=== PATIENT | male | born 1940 | race Caucasian/White ===

== ENCOUNTER 2019-12-21 12:24 | Outpatient (CLI) | payer MEDICARE, SELFPAY ==
--- NOTE | 2019-12-22 14:23 | WPDHOLTEREM ---
Holter/Event Monitor Holter/Event Monitor Date of procedure: 12/21/19 Procedure Type: 24 hour holter monitor Indications: Irregular heart beat Conclusion: 1. 24 hour holter monitor on 12/21/19. 2. Predominant rhythm is sinus rhythm. HR range 36-113 bpm; average HR 66 bpm. 3. No premature supraventricular complexes. No supraventricular tachycardia. 4. There are 8,756 premature ventricular complexes, 570 ventricular couplets, 5 ventricular triplets, 6,783 ventricular bigeminy and 1,098 ventricular trigeminy. One idioventricular rhythm at 83 bpm lasting 5 beats. No ventricular tachycardia. 5. No sinoatrial or atrioventricular blocks. The longest pause is 2.6 seconds at 2:57 am. 6. No symptoms available for correlation.
== END 2019-12-21 12:25 | disposition home or self-care (01) ==
LOC: CHSCARD 12:31
PROVIDERS: PCP Internal Medicine; Visit Provider Internal Medicine
DX: I49.9 Cardiac arrhythmia, unspecified (principal)
CPT/HCPCS: 93225; 93226

== ENCOUNTER 2019-12-25 13:27 | Outpatient (CLI) | payer MEDICARE, SELFPAY | END 2019-12-25 13:28 | disposition home or self-care (01) | PROVIDERS: PCP Internal Medicine; Visit Provider Internal Medicine | DX: I49.9 Cardiac arrhythmia, unspecified (principal); I10 Essential (primary) hypertension | CPT/HCPCS: 93306 ==

== ENCOUNTER 2022-09-29 09:54 | Outpatient (CLI) | payer MEDICARE, SELFPAY ==
--- NOTE | ~2022-09-29 | US_ITS ---
EXAMINATION: US retroperitoneal duplex ltd DATE: 09/29/2022 11:03 INDICATION: Acute renal failure. TECHNIQUE: Multiple grayscale, color Doppler, and pulsed Doppler images of the kidneys and renal malu linnette were obtained. COMPARISON: None. FINDINGS: The aorta peak velocity was not measured due to poor visibility. The right renal artery peak systolic velocity is 88 cm/s. The left renal artery velocity was not measured due to poor visibility. IMPRESSION: 1. No Doppler evidence of right-sided renal artery stenosis. 2. Nondiagnostic evaluation of left renal artery. Reviewed, dictated and finalized at location A.
--- NOTE | ~2022-09-29 | US_ITS ---
EXAMINATION: US renal BI DATE: 09/29/2022 11:02 INDICATION: Acute renal failure. TECHNIQUE: Multiple ultrasound grayscale images of the kidneys were obtained. COMPARISON: None. FINDINGS: The right kidney measures 11.3 x 4.6 x 7.2 cm. The left kidney measures 11.8 x 4.4 x 6.5 cm. The kidn eys demonstrate normal parenchymal echogenicity. There is severe bilateral hydronephrosis and hydrour eter. The bladder is markedly distended. The bladder volume is greater than 3000 mL. IMPRESSION: 1. Severe bilateral hydronephrosis and hydroureter. 2. Markedly distended bladder. Reviewed, dictated and finalized at location A.
[2022-09-29 10:18] LABS: Basophils Absolute Auto 0.02 K/mm3 (0.00-0.10); Basophils Percent Auto 0.2 % (0.0-1.0); Eosinophils Absolute Auto 0.07 K/mm3 (0.02-0.50); Eosinophils Percent Auto 0.8 % (1.0-6.0); Hematocrit 36.8 % (37.0-46.0); Hemoglobin 12.5 g/dL (12.4-15.3); Immature Granulocyte Percent A 1.1 % (0.0-0.0); Lymphocytes Absolute Auto 0.93 K/mm3 (1.10-4.50); Lymphocytes Percent Auto 10.3 % (18.0-42.0); Mean Corpuscular Hemoglobin 30.9 pg (27.0-31.0); Mean Corpuscular Volume 91.1 fL (78.0-102.0); Monocytes Absolute Auto 0.67 K/mm3 (0.10-0.90); Monocytes Percent Auto 7.4 % (2.0-11.0); Neutrophils Absolute Auto 7.2 K/mm3 (1.7-7.2); Neutrophils Percent Auto 80.2 % (50.0-70.0); Platelet Count Result 271 K/mm3 (150-420); Red Blood Count 4.04 M/mm3 (4.70-6.10); Red Cell Distribution Width 12.1 % (11.6-14.4)
[2022-09-29 10:57] LABS: Alanine Aminotransferase 36 U/L (16-63); Albumin Level 3.6 g/dL (3.4-5.0); Alkaline Phosphatase 89 U/L (46-116); Anion Gap 15 mmol/L (8-16); Aspartate Amino Transferase 16 U/L (15-37); Bilirubin,Total 0.4 mg/dL (0.00-1.00); Blood Urea Nitrogen 86 mg/dL (7-18); CRP 9.8 mg/dL (0.0-0.9); Calcium 9.4 mg/dL (8.5-10.1); Carbon Dioxide 21 mmol/L (21-32); Chloride 103 mmol/L (98-108); Estimated Glomerular Filt Rate 9; Glucose 133 mg/dL (70-99); Osmolality Calculated 316 mOsm/kg (285-295); Potassium 5.6 mmol/L (3.5-5.1); Prostate Specific Antigen 4.2 ng/mL (< OR = 4.0); Sodium 139 mmol/L (136-145); Total Protein 7.5 g/dL (6.4-8.2)
--- NOTE | 2022-09-29 11:10 | PC.NURSE ---
Here for IVF's, lunch tray ordered for patient, warm blanket given
[2022-09-29 11:22] LABS: Erythrocyte Sedimentation Rate 52 mm/hr (0-20)
[2022-09-29] MEDS: SODIUM CHLORIDE 0.9% IV 1,000 ML 250 ML IVPB (11:38)
[2022-09-29 11:46] VITALS: BMI 22.7
--- NOTE | 2022-09-29 12:15 | PC.NURSE ---
Dr Shook here, noted to have creatinine 6.06 and feels patient needs obs admit, talked with Johnathan Dowd SENIOR TECHNICAL SUPPORT ENGINEER and agrees for an obs admit, transferred to observation status with new account number, fluids continue at this time at 250 ml an hour
[2022-10-01 15:36] LABS: Albumin 3.6 g/dL (3.8-4.8); Alpha 1 Globulin 0.6 g/dL (0.2-0.3); Alpha 2 Globulin 1.4 g/dL (0.5-0.9); Beta 1 Globulin 0.4 g/dL (0.4-0.6); Gamma Globulin 0.7 g/dL (0.8-1.7); Protein, Total 7.2 g/dL (6.1-8.1)
[2022-10-02 09:15] LABS: Complement C3 225 mg/dL (***)
[2022-10-02 18:39] LABS: Complement Total CH50 >60 U/mL (31-60)
[2022-10-02 20:43] LABS: Kappa\\Lambda Light Chains 1.55 (0.26-1.65); Lambda Light Chain 25.6 mg/L (5.7-26.3)
[2022-10-03 12:48] LABS: Anti Nuclear Antibody Pattern Nuclear, Speckled; Anti Nuclear Antibody Titer 1:40 (Negative)
[2022-10-05 19:50] LABS: Creatinine, Random Urine 72 mg/dL (20-320); Total Protein/Creatinine Ratio 56 mg/g creat (25-148)
== END 2022-09-29 09:55 | disposition home or self-care (01) ==
LOC: CHSTREATRM 10:00
PROVIDERS: PCP Internal Medicine; Visit Provider Internal Medicine
DX: N17.9 Acute kidney failure, unspecified (principal); E86.0 Dehydration; Z12.5 Encounter for screening for malignant neoplasm of prostate; I10 Essential (primary) hypertension; N39.0 Urinary tract infection, site not specified
CPT/HCPCS: 36415; 76775; 80053; 82570; 83883; 84153; 84155; 84156; 84165; 84166; 85025; 85652; 86038; 86039; 86140; 86160; 86162; 86334; 87086; 87088; 93976; 96360; G0103; J7030

== ENCOUNTER 2022-09-29 12:09 | Inpatient (IN) | payer MEDICARE, SELFPAY ==
[2022-09-29 12:30] VITALS: BP 160/96; PULSE 90; RESP 16; O2SAT 98; BMI 22.8
--- NOTE | 2022-09-29 13:44 | ADMGEN ---
1215This patient, Fabian Howard, was admitted to 2nd Floor Room 202-1. patient came for outpatient fluids from dr. viveros's office for abnormal labs. patient claims he had labs drawn a week ago for his yearly doctor appointment today. dr viveros here to see patient wants him to be observation over night and calls [facility] for admission and she accepts. patient denies feeling sick. claims he is 82 yrs old and stuff just slows down, i am not a young man any more. Patient oriented to hospital policies and general routines including ID bracelet, bed and alarms, visiting hours, pain management, procedures, bathroom and other care routines, personal items, smoking policy, room service/diet, and visiting hours. Information on how to activate the Rapid Response Team has been discussed. Patient/Family are encouraged to report perceived risks to care and to ask questions if they do not understand what they are told or what they should do. 1230 fr #16 ortiz cath inserted with immed return of clear yellow urine. ortiz clamped at 500ml. dr viveros here to see him wants us to keep clamping ortiz off and on. not to empty bladder to fast. sitting up in bed. eats lunch. 1300 ortiz unclamped again and immediate return of 500ml urine. ortiz clamped again. son at bedside. iv fluids cont at 250ml/hr as ordered as outpatient and will job change crew member to new order once that bag finishes. 1420 ortiz unclamped again and immediate return of 600ml and ortiz was clamped again. both sons at bedside.
[2022-09-29 14:00] VITALS: PULSE 86
[2022-09-29] MEDS: TAMSULOSIN HCL 0.4 MG CAPSULE PO (15:24)
[2022-09-29 15:29] VITALS: BP 159/76; PULSE 66; RESP 20; TEMP 36.8; O2SAT 100
--- NOTE | 2022-09-29 15:30 | PC.NURSE ---
1500 ortiz unclamped and 600ml drain out. ortiz clamped. son at bedside.
[2022-09-29] MEDS: SODIUM CHLORIDE 0.9% IV 1,000 ML 75 ML IV CONT (16:57)
--- NOTE | 2022-09-29 17:57 | PC.NURSE ---
Pt has no c/o pain or discomfort. Ortiz cath draining excess amt of urine when unclamped. Continuing to clamp ortiz cath for 1 hr and then releasing it. Pt will have continuous output of 600-1000ml urine per hour. shroudman informed. IVF now infusing 75ml/hr per VIMAL Glover order. call bruce at pt side, will continue to monitor. Encouraged pt to slow down on drinking his water and to only take sips once in a while.
--- NOTE | 2022-09-29 18:08 | PC.NURSE ---
late entry for admit patient had a male incont pad in brief and this was completely soaked in urine.
[2022-09-29 18:14] LABS: Anion Gap 10 mmol/L (8-16); Blood Urea Nitrogen 78 mg/dL (7-18); Calcium 8.6 mg/dL (8.5-10.1); Carbon Dioxide 24 mmol/L (21-32); Chloride 104 mmol/L (98-108); Estimated CRCL calculation 11 ml/min; Estimated Glomerular Filt Rate 12; Glucose 145 mg/dL (70-99); Osmolality Calculated 312 mOsm/kg (285-295); Sodium 138 mmol/L (136-145)
[2022-09-29 18:19] LABS: Glucose Point of Care 152 mg/dl (65-105)
[2022-09-29 18:45] LABS: Appearance Urine Clear (Clear); Bilirubin Urine Negative (Negative); Blood Urine Negative (Negative); Color Urine Light Yellow (Yellow); Glucose Urine UA Negative (Negative); Ketones Urine Negative (Negative); Leukocyte Esterase Ur 1+ LEU/UL (Negative); Nitrate Urine Negative (Negative); Protein Urine Negative (Negative); Specific Grav Ur <= 1.005 (1.010-1.020); Urobilinogen Urine 0.2 mg/dL (0.2-1.0); pH Urine 5.5 (5.0-8.0)
[2022-09-29 18:54] LABS: Add Urine Microscopic? YES; Squamous Epithelial Cell Urine Moderate /hpf (Few)
[2022-09-29 18:55] LABS: Bacteria Urine 1+ /hpf
[2022-09-29 19:02] LABS: Thyroid Stimulating Hormone 2.39 uIU/mL (0.36-3.74)
[2022-09-29 19:19] LABS: Uric Acid 9.5 mg/dL (3.5-7.2)
--- NOTE | 2022-09-29 19:31 | PC.NURSE ---
1820 radha prevention coordinator aware of large amt urine putput and unable to quinch his thirst. large input and out put. new orders. bs per fingerstick 152 1840 bladder scan done at this time. claims 418ml urine the first time and 772ml second time. unclamped urine 650ml immediate return. there 600 in bag at this time. ua obtained and sent to lab.
--- NOTE | 2022-09-29 20:21 | PC.NURSE ---
ortiz bag unclamped and 500ml urine . pale yellow urine. ortiz tubing is done draining at this time and is left open at this time. dr viveros has called and checked on patient.
[2022-09-30] VITALS: BP 111/64; PULSE 84; RESP 17; TEMP 37.3; O2SAT 97
[2022-09-30] MEDS: ZOLPIDEM TARTRATE (*CRX) 5 MG TABLET PO (00:06)
[2022-09-30 05:17] LABS: Basophils Absolute Auto 0.02 K/mm3 (0.00-0.10); Basophils Percent Auto 0.3 % (0.0-1.0); Eosinophils Absolute Auto 0.19 K/mm3 (0.02-0.50); Eosinophils Percent Auto 2.8 % (1.0-6.0); Hematocrit 29.4 % (37.0-46.0); Hemoglobin 9.8 g/dL (12.4-15.3); Immature Granulocyte Absolute 0.11 K/mm3 (0.00-0.00); Immature Granulocyte Percent A 1.6 % (0.0-0.0); Mean Corpuscular HGB Conc 33.3 g/dL (32.0-36.0); Mean Corpuscular Hemoglobin 30.6 pg (27.0-31.0); Mean Corpuscular Volume 91.9 fL (78.0-102.0); Mean Platelet Volume 9.3 fl (8.7-11.0); Monocytes Absolute Auto 0.62 K/mm3 (0.10-0.90); Monocytes Percent Auto 9.1 % (2.0-11.0); Neutrophils Absolute Auto 4.6 K/mm3 (1.7-7.2); Neutrophils Percent Auto 67.2 % (50.0-70.0); Platelet Count Result 198 K/mm3 (150-420); Red Cell Distribution Width 12.3 % (11.6-14.4); White Blood Count 6.8 K/mm3 (4.8-10.8)
[2022-09-30 05:29] LABS: Anion Gap 11 mmol/L (8-16); Blood Urea Nitrogen 65 mg/dL (7-18); Calcium 8.6 mg/dL (8.5-10.1); Carbon Dioxide 22 mmol/L (21-32); Chloride 112 mmol/L (98-108); Estimated CRCL calculation 15 ml/min; Estimated Glomerular Filt Rate 17; Glucose 105 mg/dL (70-99); Osmolality Calculated 318 mOsm/kg (285-295); Potassium 5.2 mmol/L (3.5-5.1); Sodium 145 mmol/L (136-145)
[2022-09-30] MEDS: SODIUM CHLORIDE 0.9% IV 1,000 ML 75 ML IV CONT (06:06)
[2022-09-30 08:00] VITALS: BP 120/80; PULSE 80; RESP 16; TEMP 36.6; O2SAT 98
[2022-09-30] MEDS: FINASTERIDE 5 MG TABLET PO (08:50)
[2022-09-30] MEDS: TAMSULOSIN HCL 0.4 MG CAPSULE PO (08:50)
[2022-09-30 09:20] LABS: Phosphorus 4.7 mg/dL (2.6-4.7)
[2022-09-30 10:15] LABS: Potassium Urine Random 26.8 mmol/L (12-62); Sodium Urine Random 56 mmol/L (20-110)
--- NOTE | 2022-09-30 10:20 | PC.NURSE ---
1020 patient now an inpatient from observation status.
--- NOTE | 2022-09-30 10:25 | PM.IMPN ---
Progress Note: A&P Assessment and Plan (1) Urinary retention: Code(s): R33.9 - Retention of urine, unspecified Status: Acute (2) Acute kidney injury: Code(s): N17.9 - Acute kidney failure, unspecified Status: Acute (3) Hydronephrosis: Code(s): N13.30 - Unspecified hydronephrosis Status: Acute (4) Urinary tract infection: Code(s): N39.0 - Urinary tract infection, site not specified Status: Acute (5) Anemia: Code(s): D64.9 - Anemia, unspecified Status: Acute Plan A/P 1. Urinary retention with acute renal failure-acute kidney injury is improving. Highest creatinine noted yesterday was 6.09 and today creatinine is 3.41. Per H&P baseline creatinine is at approximately 1.0. Patient continues to have large amount of urine output. Patient states he typically drinks a large amount of fluid at home up to 5 L daily. Discussed with patient that IV fluids can be discontinued and he can start increasing his oral intake as he would at home. Did discuss the Harrell catheter will need to be left in place and that he will need follow-up with urology as an outpatient. Also discussed plan with patient's primary care provider Dr. Shook and he is in agreement with above plan. He would like for patient to continue with finasteride and Flomax, both were started yesterday. Discussed with patient and patient's primary care provider patient's creatinine will need to be closer to baseline prior to discharge. Patient and Dr. Shook verbalized understanding. Did speak with Dr. Shook about patient following up with Urology as an outpatient and he requests that patient have a follow-up appointment May with Dr. Whitman, this appointment will be made prior to patient's discharge. 2. Hydronephrosis-secondary to significant urinary retention. Patient was noted to have greater than 3000 mL in his bladder when the renal ultrasound was performed. Patient was noted to have severe bilateral hydronephrosis and hydroureter, with markedly distended bladder. Did discuss with patient's primary care Dr. Shook about repeating renal ultrasound prior to discharge or as an outpatient and he would like patient to have this repeated after discharge and has fully recovered. 3. Anemia-patient's hemoglobin today is 9.8. Patient denies noting any bright red blood in his stool or dark tarry stools. Patient's hemoglobin yesterday was 12.5. This decrease could be somewhat delusional since patient did receive a large amount of IV fluids. Will order stool for occult blood to be done. Patient's MCV and MCH are within normal limits. Will continue to monitor hemoglobin and hematocrit and if they were to continue to trend down may need to transfuse patient and investigate anemia even further. 4. UTI-patient's urine does show 1+ leukocyte esterase, 4-6 wbc's, 1+ urine bacteria, and moderate squamous epithelial cells noted. This could be contaminant. Patient was placed on Rocephin daily and urinalysis was not sent for culture. At this point time will have urine sent for culture to evaluate if this is a true UTI or if it was a contamination of patient's sample. VTE: Patient will be placed on subcutaneous heparin for VTE prophylaxis. Dispo: Patient requires inpatient monitoring with expected length of stay to exceed 2 midnights for management of care. Patient will be changed from observation to inpatient. Code Status: Full code Time Spent With Patient Time: Total time spent with patient 25 minutes. Subjective Date/time seen: 09/30/22 0930 Interval history: Patient resting in bed and states he feels fine. Patient states that he had no complaints prior to coming to the hospital, that he was told to come because his annual blood work was very abnormal. Patient states prior to coming in he had new has not see with starting his urine stream. Patient states he did not feel that his bladder was full. Patient states that he feels fine to
[2022-09-30 11:59] LABS: Immature Reticulocyte Fraction 14.5 % (2.0-16.52); Reticulocyte Hemoglobin Conten 34.4 pg (28.0-35.0); Reticulocyte Percent 0.89 % (0.50-1.50); Reticulocytes Absolute 0.03 M/mm3 (0.02-0.1)
[2022-09-30 12:37] LABS: Ferritin 801 ng/mL (26-388); Iron 63 ug/dL (65-175); Vitamin B12 1298 pg/mL (193-986)
[2022-09-30 15:55] VITALS: BP 120/80; PULSE 80; RESP 18; TEMP 36.6; O2SAT 98
[2022-09-30] MEDS: HEPARIN SODIUM 5,000 UNITS/ML VIAL 5000 UNITS SUB-Q (20:18)
[2022-09-30 23:01] VITALS: BP 141/64; PULSE 99; RESP 15; TEMP 37; O2SAT 98
[2022-10-01] MEDS: ZOLPIDEM TARTRATE (*CRX) 5 MG TABLET PO (00:10)
[2022-10-01 05:26] LABS: Basophils Absolute Auto 0.02 K/mm3 (0.00-0.10); Basophils Percent Auto 0.3 % (0.0-1.0); Eosinophils Absolute Auto 0.26 K/mm3 (0.02-0.50); Eosinophils Percent Auto 3.6 % (1.0-6.0); Hematocrit 30.5 % (37.0-46.0); Hemoglobin 10.1 g/dL (12.4-15.3); Immature Granulocyte Absolute 0.09 K/mm3 (0.00-0.00); Immature Granulocyte Percent A 1.3 % (0.0-0.0); Lymphocytes Absolute Auto 1.69 K/mm3 (1.10-4.50); Lymphocytes Percent Auto 23.5 % (18.0-42.0); Mean Corpuscular HGB Conc 33.1 g/dL (32.0-36.0); Mean Corpuscular Hemoglobin 30.7 pg (27.0-31.0); Mean Corpuscular Volume 92.7 fL (78.0-102.0); Mean Platelet Volume 9.4 fl (8.7-11.0); Monocytes Absolute Auto 0.59 K/mm3 (0.10-0.90); Monocytes Percent Auto 8.2 % (2.0-11.0); Neutrophils Absolute Auto 4.5 K/mm3 (1.7-7.2); Neutrophils Percent Auto 63.1 % (50.0-70.0); Platelet Count Result 201 K/mm3 (150-420); Red Blood Count 3.29 M/mm3 (4.70-6.10); Red Cell Distribution Width 12.1 % (11.6-14.4); White Blood Count 7.2 K/mm3 (4.8-10.8)
[2022-10-01 05:35] LABS: Anion Gap 9 mmol/L (8-16); Blood Urea Nitrogen 46 mg/dL (7-18); Calcium 8.7 mg/dL (8.5-10.1); Carbon Dioxide 26 mmol/L (21-32); Chloride 109 mmol/L (98-108); Estimated CRCL calculation 22 ml/min; Estimated Glomerular Filt Rate 29; Glucose 104 mg/dL (70-99); Osmolality Calculated 309 mOsm/kg (285-295); Potassium 4.7 mmol/L (3.5-5.1); Sodium 144 mmol/L (136-145)
[2022-10-01 07:35] VITALS: BP 140/75; PULSE 76; RESP 16; TEMP 36.4; O2SAT 100
[2022-10-01] MEDS: FINASTERIDE 5 MG TABLET PO (09:01)
[2022-10-01] MEDS: TAMSULOSIN HCL 0.4 MG CAPSULE PO (09:01)
[2022-10-01] MEDS: HEPARIN SODIUM 5,000 UNITS/ML VIAL 5000 UNITS SUB-Q ×2 (09:02→20:49)
[2022-10-01] MEDS: polyethylene glycoL 3350 17 GM POWD.PACK PO (10:35)
--- NOTE | 2022-10-01 10:39 | PM.IMPN ---
Progress Note: A&P Assessment and Plan (1) Urinary retention: Code(s): R33.9 - Retention of urine, unspecified Status: Acute (2) Acute kidney injury: Code(s): N17.9 - Acute kidney failure, unspecified Status: Acute (3) Hydronephrosis: Code(s): N13.30 - Unspecified hydronephrosis Status: Acute (4) Urinary tract infection: Code(s): N39.0 - Urinary tract infection, site not specified Status: Acute (5) Anemia: Code(s): D64.9 - Anemia, unspecified Status: Acute Plan A/P 1. Urinary retention with acute renal failure-acute kidney injury continues to improve. Highest creatinine noted yesterday was 6.09 and today creatinine is 2.15. Per H&P from Dr. Shook baseline creatinine is at approximately 1.0. Patient continues to have good urine output through Harrell catheter. Patient continues to have good oral intake and improvement in kidney function. Again, discussed that the Harrell catheter will need to be left in place and patient will need follow-up with urology as an outpatient. Patient states that he would like to discuss the Urology referral with his primary care provider. Did explain to patient that this was discussed with Dr. Shook yesterday, but patient states that since it will take quite some time to get an appointment with Urology he will discuss that with Dr. Shook when he sees him after discharge. Patient will continue with finasteride and Flomax, both were started on 09/29/2022. Discussed with patient that it would be beneficial to see his creatinine closer to baseline prior to discharge. Patient states he is in agreement with this and would like to wait until tomorrow for possible discharge. Dr. Shook stated he would like to see the patient follow-up with Urology as an outpatient and he requests that patient have a follow-up appointment with Dr. Whitman. Appointment was attempted to be made yesterday, but the 1st available appointment would not be in till late October. Secondary to appointment being so late patient is wanting to discuss options with Dr. Shook at hospital follow-up. 2. Hydronephrosis-secondary to significant urinary retention. Patient was noted to have greater than 3000 mL in his bladder when the renal ultrasound was performed. Patient was noted to have severe bilateral hydronephrosis and hydroureter, with markedly distended bladder. Did discuss with patient's primary care Dr. Shook about repeating renal ultrasound prior to discharge or as an outpatient and he would like patient to have this repeated after discharge and has fully recovered. 3. Anemia-patient's hemoglobin on 09/30/2022 was 9.8. This decrease could be somewhat dilutional since patient did receive a large amount of IV fluids. Patient has not had a bowel movement and states he does feel constipated so MiraLax was ordered. Stool for occult blood has been ordered and when patient has bowel movement this can be sent to laboratory. Patient's MCV and MCH are within normal limits. Patient's reticulocyte counts were all within normal limits. Patient's iron was mildly low at 63, with the low side of normal being 65. Patient's ferritin level was elevated at 801. Patient's B12 level was 1298. Since patient did have improvement in his hemoglobin and hematocrit will continue to monitor to see if most of his anemia was from the large amount of IV fluids. Still awaiting stool for occult blood. Will continue to monitor hemoglobin and hematocrit. 4. UTI-patient's urine does show 1+ leukocyte esterase, 4-6 wbc's, 1+ urine bacteria, and moderate squamous epithelial cells noted. This could be contaminant. Patient was placed on Rocephin daily and urine culture shows less than 10,000 colonies of single g negative organism isolated and no further testing was needed to be performed. Rocephin will be discontinued since no urinary tract infection present. VTE: Patient will be placed on subcutaneous heparin for VTE prophyla
[2022-10-01 16:40] VITALS: BP 137/72; PULSE 80; RESP 16; TEMP 36.6; O2SAT 99
[2022-10-01 23:02] VITALS: BP 134/65; PULSE 80; RESP 16; TEMP 37.1; O2SAT 97
[2022-10-02] MEDS: ZOLPIDEM TARTRATE (*CRX) 5 MG TABLET PO (00:02)
--- NOTE | 2022-10-02 06:33 | PM.DS ---
DS: Admitting Diagnosis Discharge Date 10/02/2022 Admitting Diagnosis hydronephrosis, Urinary retention, Acute kidney injury DS: Discharge Diagnosis Discharge Diagnosis (1) Urinary retention: Code(s): R33.9 - Retention of urine, unspecified Status: Acute Assessment and Plan: sent home with Harrell catheter Continue with oral antibiotics (2) Acute kidney injury: Code(s): N17.9 - Acute kidney failure, unspecified Status: Acute Assessment and Plan: Creatinine began at 6 currently 1.8 Avoid nephrotoxic medication (3) Hydronephrosis: Code(s): N13.30 - Unspecified hydronephrosis Status: Acute Assessment and Plan: continue with Harrell catheter Follow-up with your primary care provider Labs to be drawn (4) Urinary tract infection: Code(s): N39.0 - Urinary tract infection, site not specified Status: Acute Assessment and Plan: continue with oral antibiotics Drink plenty of fluids Monitor intake and output (5) Anemia: Code(s): D64.9 - Anemia, unspecified Status: Acute Assessment and Plan: currently stable Plan A/P 1. Urinary retention with acute renal failure-acute kidney injury continues to improve. Highest creatinine noted yesterday was 6.09 and today creatinine is 2.15. Per H&P from Dr. Shook baseline creatinine is at approximately 1.0. Patient continues to have good urine output through Harrell catheter. Patient continues to have good oral intake and improvement in kidney function. Again, discussed that the Harrell catheter will need to be left in place and patient will need follow-up with urology as an outpatient. Patient states that he would like to discuss the Urology referral with his primary care provider. Did explain to patient that this was discussed with Dr. Shook yesterday, but patient states that since it will take quite some time to get an appointment with Urology he will discuss that with Dr. Shook when he sees him after discharge. Patient will continue with finasteride and Flomax, both were started on 09/29/2022. Discussed with patient that it would be beneficial to see his creatinine closer to baseline prior to discharge. Patient states he is in agreement with this and would like to wait until tomorrow for possible discharge. Dr. Shook stated he would like to see the patient follow-up with Urology as an outpatient and he requests that patient have a follow-up appointment with Dr. Whitman. Appointment was attempted to be made yesterday, but the 1st available appointment would not be in till late October. Secondary to appointment being so late patient is wanting to discuss options with Dr. Shook at hospital follow-up. 2. Hydronephrosis-secondary to significant urinary retention. Patient was noted to have greater than 3000 mL in his bladder when the renal ultrasound was performed. Patient was noted to have severe bilateral hydronephrosis and hydroureter, with markedly distended bladder. Did discuss with patient's primary care Dr. Shook about repeating renal ultrasound prior to discharge or as an outpatient and he would like patient to have this repeated after discharge and has fully recovered. 3. Anemia-patient's hemoglobin on 09/30/2022 was 9.8. This decrease could be somewhat dilutional since patient did receive a large amount of IV fluids. Patient has not had a bowel movement and states he does feel constipated so MiraLax was ordered. Stool for occult blood has been ordered and when patient has bowel movement this can be sent to laboratory. Patient's MCV and MCH are within normal limits. Patient's reticulocyte counts were all within normal limits. Patient's iron was mildly low at 63, with the low side of normal being 65. Patient's ferritin level was elevated at 801. Patient's B12 level was 1298. Since patient did have improvement in his hemoglobin and hematocrit will continue to monitor to see if most of his anemia was fr
[2022-10-02 07:02] LABS: Anion Gap 7 mmol/L (8-16); Blood Urea Nitrogen 36 mg/dL (7-18); Calcium 8.5 mg/dL (8.5-10.1); Carbon Dioxide 28 mmol/L (21-32); Chloride 106 mmol/L (98-108); Estimated CRCL calculation 25 ml/min; Estimated Glomerular Filt Rate 34; Glucose 108 mg/dL (70-99); Osmolality Calculated 301 mOsm/kg (285-295); Potassium 4.9 mmol/L (3.5-5.1); Sodium 141 mmol/L (136-145)
[2022-10-02 07:13] LABS: Basophils Absolute Auto 0.03 K/mm3 (0.00-0.10); Basophils Percent Auto 0.4 % (0.0-1.0); Eosinophils Absolute Auto 0.37 K/mm3 (0.02-0.50); Eosinophils Percent Auto 4.3 % (1.0-6.0); Hematocrit 30.3 % (37.0-46.0); Hemoglobin 10.3 g/dL (12.4-15.3); Immature Granulocyte Absolute 0.12 K/mm3 (0.00-0.00); Immature Granulocyte Percent A 1.4 % (0.0-0.0); Lymphocytes Absolute Auto 1.56 K/mm3 (1.10-4.50); Lymphocytes Percent Auto 18.2 % (18.0-42.0); Mean Corpuscular Hemoglobin 30.9 pg (27.0-31.0); Mean Platelet Volume 9.5 fl (8.7-11.0); Monocytes Absolute Auto 0.77 K/mm3 (0.10-0.90); Neutrophils Absolute Auto 5.7 K/mm3 (1.7-7.2); Neutrophils Percent Auto 66.7 % (50.0-70.0); Platelet Count Result 212 K/mm3 (150-420); Red Blood Count 3.33 M/mm3 (4.70-6.10); White Blood Count 8.6 K/mm3 (4.8-10.8)
[2022-10-02 07:35] VITALS: BP 112/67; PULSE 74; RESP 16; TEMP 36.6; O2SAT 99
[2022-10-02] MEDS: polyethylene glycoL 3350 17 GM POWD.PACK PO (09:05)
[2022-10-02] MEDS: FINASTERIDE 5 MG TABLET PO (09:07)
[2022-10-02] MEDS: TAMSULOSIN HCL 0.4 MG CAPSULE PO (09:07)
[2022-10-02] MEDS: HEPARIN SODIUM 5,000 UNITS/ML VIAL 5000 UNITS SUB-Q (09:07)
--- NOTE | 2022-10-02 10:40 | PC.NURSE ---
Harrell catheter care teaching done with patient by this nurse. Teaching on how to clean catheter, proper under wear to wear, how to switch from large drainage bag to leg back and back done. Patient able to repeat process with no assist from nurse. States understanding of all education.
--- NOTE | 2022-10-02 10:55 | PC.NURSE ---
Patient discharging home. Harrell catheter remaining in at discharge per FIELD CROP FARMER instructions. Through education done with patient about catheter care. All discharge instructions and education reviewed with patient. Patient states understanding. IV site removed, tip intact. Dressing applied to site. All belongings gathered and sent home with patient. Patient accompanied to front door via this nurse, left via private vehicle with son.
[2022-10-02 20:34] LABS: Osmolality, Urine 283 mOsm/kg (50-1200)
[2022-10-05 16:42] LABS: Red Blood Cell Folate 597 ng/mL RBC (>280)
--- NOTE | 2022-10-07 15:43 | PC.NURSE ---
Unable to contact for discharge call back.
== END 2022-10-02 10:55 | disposition home or self-care (01) | DRG 683 ==
PROVIDERS: Nurse Practitioner Adult Health; Nurse Practitioner Family; Admitting Provider Internal Medicine; PCP Internal Medicine; Visit Provider Internal Medicine
DX: N17.9 Acute kidney failure, unspecified (principal); N13.8 Other obstructive and reflux uropathy; N13.30 Unspecified hydronephrosis; N40.1 Benign prostatic hyperplasia with lower urinary tract symptoms; R33.8 Other retention of urine; D64.9 Anemia, unspecified
CPT/HCPCS: 36415; 76775; 80048; 80053; 81001; 82570; 82607; 82728; 82747; 82948; 83540; 83883; 83935; 84100; 84133; 84153; 84155; 84156; 84165; 84166; 84300; 84443; 84550; 85025; 85046; 85652; 86038; 86039; 86140; 86160; 86162; 86334; 87086; 87088; 93976; 96360; 96361; 96365; A9270; G0103; G0378; G0379; J0696; J1644; J7030

== ENCOUNTER 2022-10-14 07:35 | Emergency (ER) | payer MEDICARE, SELFPAY ==
--- NOTE | 2022-10-14 07:44 | ED.MALEGU ---
HPI - Male Genitourinary General Chief complaint: Urogenital-Male Stated complaint: unable to urinate Time Seen by Provider: 10/14/22 07:43 Source: patient Mode of arrival: ambulatory Limitations: no limitations History of Present Illness HPI Narrative: 82-year-old male was admitted on 09/28/2022 to 10/02/2022 for retention of urine, acute renal failure with a peak creatinine greater than 6, UTI and anemia. He had placement of a Harrell's catheter and discharged home yesterday. The patient was scheduled to see the urologist. The patient is on Flomax and finasteride. Yesterday his catheter was pulled out and subsequently he has not been able to put out any urine. The patient presents with -- retention of urine with urinary bladder scan showing a volume of greater than a 1000. -- Suprapubic pain no fever or chills. No dysuria or hematuria Onset (ago): hour(s) ( symptoms started 6 hours ago) Duration: constant Location: abdomen ( suprapubic pain) Severity: mild Quality: aching Relieving factors: none Exacerbating factors: none Associated symptoms: Reports denies other symptoms Related Data Allergies Allergy/AdvReac Type Severity Reaction Status Date / Time No Known Allergies Allergy Verified 10/14/22 07:54 Review of Systems Review of Systems: All systems reviewed & are unremarkable except as noted in HPI and below Constitutional: Constitutional: Reports as per HPI and Reports no additional constitutional complaints Eyes: Eyes: Reports as per HPI and Reports no additional eye complaints ENT: Reports system reviewed and no additional complaints, except as documented and Reports as per HPI Cardiovascular: Cardiovascular: Reports as per HPI and Reports no additional cardiovascular complaints Respiratory: Respiratory: Reports as per HPI and Reports no additional respiratory complaints Gastrointestinal: Gastrointestinal: Reports as per HPI and Reports no additional gastrointestinal complaints Genitourinary: Comments: patient has retention of urine and is unable to pass urine Musculoskeletal: Musculoskeletal: Reports no additional musculoskeletal complaints and Reports as per HPI Integumentary/Breasts: Skin/Breast: Reports system reviewed and no additional complaints, except as docu and Reports as per HPI Neurologic: Reports system reviewed and no additional complaints, except as documented and Reports as per HPI Psychiatric: Psychiatric: Reports no additional psychiatric complaints and Reports as per HPI Endocrine: Endocrine: Reports no additional endocrine complaints and Reports as per HPI Hematologic/Lymphatic: Hematologic/Lymphatic: Reports no additional hematologic/lymphatic complaints and Reports as per HPI Allergic/Immunologic: Allergic/Immunologic: Reports no additional allergic/immunologic complaints and Reports as per HPI [facility] Surgical History Surgical History History of cataract removal with insertion of prosthetic lens History of inguinal hernia repair Social History Social History Smoking status: Never smoker Other substance usage details: glass wine with thelma meal. Lack of Transportation: No Lack of Food: Never True Current Housing: I Have Housing Concerned About Future Housing: No Difficulty Paying Gas/Electric Bills: No Difficulty Paying for Meds: No Currently Unemployed: No Education: Bachelor's Degree Difficulty w/ Childcare or Family Care: No Spiritual care concerns: No Exam Const: General: no acute distress Limitations: no limitations HENMT: Head: normal to inspection Face/Nose/Sinus: Normal external nose present Face and sinus: normal facial exam Mouth: Yes Normal oral and palatal mucosa present Throat: posterior oropharynx normal Eyes: Conjunctivae: conjunctivae normal Pupils: Equal, round and reactive pupils present EOM: EOMs intact bila
[2022-10-14 07:50] VITALS: BP 145/71; PULSE 81; RESP 20; TEMP 37.2; O2SAT 98
[2022-10-14 07:58] LABS: Appearance Urine Cloudy (Clear); Bilirubin Urine Negative (Negative); Blood Urine 3+ (Negative); Color Urine Yellow (Yellow); Glucose Urine UA Negative (Negative); Ketones Urine Negative (Negative); Leukocyte Esterase Ur 3+ LEU/UL (Negative); Nitrate Urine Negative (Negative); Protein Urine 2+ (Negative); Urobilinogen Urine 0.2 mg/dL (0.2-1.0); pH Urine 6.5 (5.0-8.0)
[2022-10-14 08:05] LABS: Add Urine Microscopic? YES; Bacteria Urine Trace /hpf; WBC Urine >100 /hpf (0-3)
[2022-10-14 08:09] LABS: Basophils Absolute Auto 0.02 K/mm3 (0.00-0.10); Basophils Percent Auto 0.2 % (0.0-1.0); Eosinophils Absolute Auto 0.07 K/mm3 (0.02-0.50); Eosinophils Percent Auto 0.9 % (1.0-6.0); Hematocrit 32.1 % (37.0-46.0); Immature Granulocyte Absolute 0.05 K/mm3 (0.00-0.00); Immature Granulocyte Percent A 0.6 % (0.0-0.0); Lymphocytes Absolute Auto 0.62 K/mm3 (1.10-4.50); Lymphocytes Percent Auto 7.5 % (18.0-42.0); Mean Corpuscular HGB Conc 34.3 g/dL (32.0-36.0); Mean Corpuscular Hemoglobin 31.4 pg (27.0-31.0); Mean Corpuscular Volume 91.7 fL (78.0-102.0); Mean Platelet Volume 8.8 fl (8.7-11.0); Monocytes Absolute Auto 0.75 K/mm3 (0.10-0.90); Monocytes Percent Auto 9.1 % (2.0-11.0); Neutrophils Absolute Auto 6.7 K/mm3 (1.7-7.2); Neutrophils Percent Auto 81.7 % (50.0-70.0); Platelet Count Result 202 K/mm3 (150-420); Red Cell Distribution Width 12.9 % (11.6-14.4); White Blood Count 8.2 K/mm3 (4.8-10.8)
[2022-10-14 08:25] LABS: Alanine Aminotransferase 9 U/L (16-63); Albumin Level 3.1 g/dL (3.4-5.0); Alkaline Phosphatase 66 U/L (46-116); Anion Gap 11 mmol/L (8-16); Aspartate Amino Transferase 10 U/L (15-37); Bilirubin,Total 0.5 mg/dL (0.00-1.00); Blood Urea Nitrogen 28 mg/dL (7-18); Calcium 8.8 mg/dL (8.5-10.1); Carbon Dioxide 24 mmol/L (21-32); Chloride 105 mmol/L (98-108); Estimated CRCL calculation 31 ml/min; Estimated Glomerular Filt Rate 40; Glucose 119 mg/dL (70-99); Osmolality Calculated 296 mOsm/kg (285-295); Sodium 140 mmol/L (136-145); Total Protein 6.2 g/dL (6.4-8.2)
[2022-10-14 08:50] VITALS: BP 118/69; PULSE 68; RESP 16; O2SAT 100
--- NOTE | 2022-10-14 08:58 | PC.NURSE ---
PT REPORTED HE FEELS MUCH BETTER. LEG BAG SENT HOME AT PT REQUEST, HE DID LEAVE WITH GRAVITY BAG IN PLACE. SON TO TRANSPORT.
== END 2022-10-14 08:50 | disposition home or self-care (01) ==
PROVIDERS: Emergency Provider Internal Medicine Critical Care Medicine; PCP Internal Medicine
DX: N17.9 Acute kidney failure, unspecified (principal); N39.0 Urinary tract infection, site not specified
CPT/HCPCS: 36415; 80053; 81001; 85025; 87077; 87086; 87088; 87186; 99283

== ENCOUNTER 2022-10-15 22:05 | Inpatient (IN) | payer MEDICARE, SELFPAY ==
--- NOTE | ~2022-10-15 | XR_ITS ---
EXAMINATION: XR chest 1V portable INDICATION: Nausea and diaphoresis TECHNIQUE: Portable AP chest at 2219 hours COMPARISON: None available FINDINGS: The lungs are free of acute opacities. No pleural effusion or pneumothorax. The cardiomedia stinal silhouette is normal. The visualized bones and soft tissues are unremarkable. IMPRESSION: 1. No acute cardiopulmonary abnormality. Reviewed, dictated and finalized at location F.
[2022-10-15 22:05] VITALS: BP 124/61; PULSE 105; RESP 18; TEMP 38.8; O2SAT 95; O2SAT 97
--- NOTE | 2022-10-15 22:07 | ECG_ITS ---
Measurements Intervals [place] Rate: 106 P: 81 DE: 163 QRS: 58 QRSD: 105 T: 44 QT: 330 QTc: 439 Interpretive Statements SINUS TACHYCARDIA WITH FREQUENT SUPRAVENTRICULAR PREMATURE COMPLEXES LOW QRS VOLTAGE IN PRECORDIAL LEADS [QRS DEFLECTION < 1.0 mV IN CHEST LEADS] ABNORMAL RHYTHM ECG NO PREVIOUS ECG AVAILABLE FOR COMPARISON Electronically Signed On 10-16-2022 12:38:01 CDT by Timoteo Luna M.D.
--- NOTE | 2022-10-15 22:11 | ED.GENADULT ---
HPI - General Adult General Chief complaint: Fever Stated complaint: vomiting Time Seen by Provider: 10/15/22 22:07 History of Present Illness HPI narrative: Fabian is an 82M with a PMH of urinary obstruction and recent UTI treated inpatient here that was brought in by EMS with fever, fatigue and several episodes of non-bloody vomiting. He was discharged from this hospital a weeks ago after he was found to have LISETH and a bladder infection treated with a catheter. However, he was found to have a UTI a couple days ago and was started on Augmentin. He tried to take these pills but vomited them up and he continued to have worsening fever, fatigue and vomiting so he called EMS. He denies CP, dyspnea, diarrhea and other pain. Related Data Allergies Allergy/AdvReac Type Severity Reaction Status Date / Time No Known Allergies Allergy Verified 10/14/22 07:54 Review of Systems Review of Systems: All systems reviewed & are unremarkable except as noted in HPI and below PMFSH Surgical History Surgical History History of cataract removal with insertion of prosthetic lens History of inguinal hernia repair Social History Social History Smoking status: Never smoker Second hand tobacco smoke exposure: No Alcohol intake: current Drinks per week: 1 Substance use: never Substance use type: does not use Other substance usage details: glass wine with thelma meal. Lack of Transportation: No Lack of Food: Never True Current Housing: I Have Housing Concerned About Future Housing: No Difficulty Paying Gas/Electric Bills: No Difficulty Paying for Meds: No Currently Unemployed: No Education: Bachelor's Degree Difficulty w/ Childcare or Family Care: No Spiritual care concerns: No Exam Const: General: healthy appearing, no acute distress and alert Nutritional Appearance: well nourished Orientation/consciousness: patient oriented x3 HENMT: Head: normal to inspection Ears: external ears normal Face/Nose/Sinus: Normal external nose present Eyes: Conjunctivae: conjunctivae normal Pupils: Equal, round and reactive pupils present Neck: Neck: normal visual inspection Chest: Chest palpation & inspection: normal inspection of the chest Resp: Effort & Inspection: normal respiratory effort Auscultation: clear to auscultation bilaterally Cardio: Rate: regular rate Rhythm: regular rhythm GI: Inspection: non-distended GI Palp: Yes Soft to palpation, No Tenderness to palpation present (GI) and No Guarding due to palpation present (GI) : Other: catheter in place with fowl smelling urine Back/Spine/Pelvis: Back: no CVA tenderness Skin: General skin exam: normal color Neuro: General: patient oriented x3 and moves all extremities Cranial nerves: Yes Nystagmus not present Extrem: General: normal to inspection Psych: Mental Status: mental status grossly normal Course Course Emergency Course: Ordered labs, CXR, blood cultures, UA and cefepime EKG showed sinus tachycardia with a rate of 106, frequent supraventricular premature complexes but no ST elevation or depression EXAMINATION: XR chest 1V portable INDICATION: Nausea and diaphoresis TECHNIQUE: Portable AP chest at 2219 hours COMPARISON: None available FINDINGS: The lungs are free of acute opacities. No pleural effusion or pneumothorax. The cardiomediastinal silhouette is normal. The visualized bones and soft tissues are unremarkable. IMPRESSION: 1. No acute cardiopulmonary abnormality. UA showed WBC, bacteria and blood. This in addition to leukocytosis, LISETH fever and tachycardia are concerning for urosepsis so he was given cefepime and another liter of fluid. Hospitalist was contacted at 2330. Lizz accepted the admission to observation with fluids at 100 per hour and cefepime 2gram Q12 hours Vital Signs Vital signs: Vit
[2022-10-15] MEDS: ONDANSETRON INJ 4 MG/2 ML VIAL IV PUSH (22:31)
[2022-10-15] MEDS: ACETAMINOPHEN 500 MG TABLET 1000 MG PO (22:31)
[2022-10-15 22:33] LABS: Basophils Absolute Auto 0.01 K/mm3 (0.00-0.10); Basophils Percent Auto 0.1 % (0.0-1.0); Hematocrit 30.8 % (37.0-46.0); Hemoglobin 10.5 g/dL (12.4-15.3); Immature Granulocyte Absolute 0.17 K/mm3 (0.00-0.00); Immature Granulocyte Percent A 1.2 % (0.0-0.0); Lymphocytes Absolute Auto 0.45 K/mm3 (1.10-4.50); Lymphocytes Percent Auto 3.1 % (18.0-42.0); Mean Corpuscular HGB Conc 34.1 g/dL (32.0-36.0); Mean Corpuscular Hemoglobin 31.3 pg (27.0-31.0); Mean Corpuscular Volume 91.9 fL (78.0-102.0); Mean Platelet Volume 9.1 fl (8.7-11.0); Monocytes Absolute Auto 1.03 K/mm3 (0.10-0.90); Monocytes Percent Auto 7.2 % (2.0-11.0); Neutrophils Absolute Auto 12.7 K/mm3 (1.7-7.2); Neutrophils Percent Auto 88.4 % (50.0-70.0); Platelet Count Result 166 K/mm3 (150-420); Red Blood Count 3.35 M/mm3 (4.70-6.10); White Blood Count 14.4 K/mm3 (4.8-10.8)
[2022-10-15] MEDS: CEFEPIME 2 GM/NS 50 ML 2 GM/50 ML BAG IVPB (22:34)
[2022-10-15 22:37] LABS: Appearance Urine Clear (Clear); Bilirubin Urine Negative (Negative); Blood Urine 3+ (Negative); Color Urine Light Yellow (Yellow); Glucose Urine UA Negative (Negative); Ketones Urine Negative (Negative); Leukocyte Esterase Ur 1+ LEU/UL (Negative); Nitrate Urine Negative (Negative); Protein Urine 3+ (Negative); Specific Grav Ur 1.015 (1.010-1.020); Urobilinogen Urine 0.2 mg/dL (0.2-1.0)
[2022-10-15 22:45] LABS: Add Urine Microscopic? YES; RBC Urine 21-50 /hpf (0-2); Squamous Epithelial Cell Urine None seen /hpf (Few)
[2022-10-15 22:46] LABS: Bacteria Urine 3+ /hpf; Mucus Urine Few /lpf
[2022-10-15 22:49] LABS: Alanine Aminotransferase 31 U/L (16-63); Albumin Level 2.7 g/dL (3.4-5.0); Alkaline Phosphatase 66 U/L (46-116); Anion Gap 12 mmol/L (8-16); Aspartate Amino Transferase 42 U/L (15-37); Bilirubin,Total 0.9 mg/dL (0.00-1.00); Blood Urea Nitrogen 27 mg/dL (7-18); Calcium 8.5 mg/dL (8.5-10.1); Carbon Dioxide 25 mmol/L (21-32); Chloride 102 mmol/L (98-108); Estimated CRCL calculation 26 ml/min; Estimated Glomerular Filt Rate 33; Glucose 149 mg/dL (70-99); Osmolality Calculated 296 mOsm/kg (285-295); Potassium 3.9 mmol/L (3.5-5.1); Sodium 139 mmol/L (136-145)
[2022-10-15 22:51] LABS: CRP > 25.0 mg/dL (0.0-0.9)
[2022-10-15 22:54] LABS: Lactic Acid Reflex 2.4 mmol/L (0.4-2.0)
[2022-10-15 23:00] VITALS: PULSE 90
[2022-10-15] MEDS: SODIUM CHLORIDE 0.9% IV 1,000 ML 500 ML IV CONT (23:03)
[2022-10-15 23:09] VITALS: TEMP 38.7
[2022-10-15] MEDS: LORazepam INJ (*CRX) 2 MG/ML VIAL 0.5 MG IV PUSH (23:09)
[2022-10-15 23:25] LABS: Influenza A QL RT-PCR Negative (Negative); Influenza B QL RT-PCR Negative (Negative); RSV RNA, RT-PCR Negative (Negative); SARS-CoV-2 RNA PCR Negative (Negative)
--- NOTE | 2022-10-15 23:25 | PC.NURSE ---
Pt resting c son's at bedside, POC discussed c pt and family for admit. Pt reports less nausea and feeling some better. Harrell cath draining to gravity.
[2022-10-15 23:44] VITALS: BP 97/52; PULSE 96; RESP 18; TEMP 37.5; O2SAT 93
[2022-10-16] VITALS (15 sets, daily range): BP systolic 85–135; BP diastolic 47–85; PULSE 72–109; RESP 16–18; TEMP 36.6–38.4; O2SAT 93–100; BMI 23.2
--- NOTE | 2022-10-16 00:05 | ADMGEN ---
This patient, Fabian Howard, was admitted to 2nd Floor Room 205-2. Patient/family oriented to hospital policies and general routines including ID bracelet, bed and alarms, visiting hours, pain management, procedures, bathroom and other care routines, personal items, smoking policy, room service/diet, and visiting hours. Information on how to activate the Rapid Response Team has been discussed. Patient/Family are encouraged to report perceived risks to care and to ask questions if they do not understand what they are told or what they should do.
--- NOTE | 2022-10-16 00:38 | PC.NURSE ---
Pt arrived on floor at 0005, lethargic from Antianxiety given in ER, requires staff to repeat some questions. Pt had F/C placed in ER x 2 days ago, states his PCP, Dr. Shook, removed his previous F/C (unsure when at this time), pt states he has not had time to make a urologist appointment. Pt had also been placed on Augmentin in ER x 2 days ago, states he only took 1 dose, had nausea, so stopped taking.
[2022-10-16] MEDS: SODIUM CHLORIDE 0.9% IV 1,000 ML 100 ML IV CONT ×3 (01:07→21:45)
[2022-10-16 01:33] LABS: Reflex Lactic Acid Yes or No Add Lactic
[2022-10-16 03:00] LABS: Lactic Acid 1.1 mmol/L (0.4-2.0)
[2022-10-16] MEDS: ENOXAPARIN 30 MG/0.3 ML SYRINGE SUB-Q (08:30)
[2022-10-16] MEDS: CEFEPIME 2 GM/NS 50 ML 2 GM/50 ML BAG IVPB (08:31)
[2022-10-16] MEDS: ACETAMINOPHEN 325 MG TABLET 650 MG PO ×2 (08:31→17:03)
--- NOTE | 2022-10-16 11:14 | PM.IMHP ---
H&P: HPI History of Present Illness Date/Time: 10/16/22 11:14 Chief Complaint: Febrile, Urinary Retention , Nausea and vomiting Narrative: This is 82-year-old male that recently was discharged on 10/02 and returned uroseptic. Patient was sent home with a Harrell catheter that was discontinued by his primary care provider on Wednesday. Patient was unable to urinate in a new Harrell catheter was placed on Wednesday morning patient began to become febrile was having nausea and dry heaves with no vomiting.?09/28/2022 to? 10/02/2022 for retention of urine, acute renal failure with a peak creatinine greater than 6, UTI and anemia.? He had placement of a Harrell's catheter and discharged Then returned to the hospital on 10/05 and discharge same day. Patient was found have a white blood count of 14.4, hemoglobin of 10 point 5 BUN was 27 creatinine was 1.93 patient has been started on some IV fluids with a Harrell catheter placed dark yellow urine noted urine was sent for culture was found to have some Pseudomonas patient has been on IV cefepime with a consult placed to affect his disease arm assist to ensure this is appropriate patient's lactic was 1.1 platelets are normal 166 were calling get patient scheduled with the urologist as he was previously supposed to call to get appointment but has not obtained that appointment at this time we will continue to treat patient's sepsis and have an appointment set up for patient prior discharge. Patient remains alert and oriented but continues to be febrile last temp was 101.8?. Prior to urinary issues patient had no recent prior past medical history as he was avid runner currently so far since his 1st visit on 09/28 he has not been able to run as he has felt fatigued and unwell. Review of Systems Review of Systems: Abdominal pressure or fullness. All systems reviewed & are unremarkable except as noted in HPI and below PMFSH Surgical History Surgical History History of cataract removal with insertion of prosthetic lens History of inguinal hernia repair Social History Social History Smoking status: Never smoker Second hand tobacco smoke exposure: No Alcohol intake: current Drinks per week: 1 Substance use: never Substance use type: does not use Other substance usage details: glass wine with thelma meal. Lack of Transportation: No Lack of Food: Never True Current Housing: I Have Housing Concerned About Future Housing: No Difficulty Paying Gas/Electric Bills: No Difficulty Paying for Meds: No Currently Unemployed: No Education: Bachelor's Degree Difficulty w/ Childcare or Family Care: No Spiritual care concerns: No Comments At time as signature, I have reviewed and agree with nursing past medical, social, surgical and family history. Please see nursing chart for further information. There is no relevant family history pertinent to the presenting complaint. Meds Home Medications and Allergies Home Medications Medication Instructions Recorded Confirmed Type zolpidem 10 mg tablet 10 mg PO .Bedtime PRN insomnia #10 01/26/19 10/15/22 Rx tabs finasteride 5 mg tablet (Proscar) 5 mg PO QAM #30 tabs 10/02/22 10/15/22 Rx polyethylene glycol 3350 17 gram 17 g PO QAM #30 ea 10/02/22 10/15/22 Rx oral powder packet (Miralax) tamsulosin 0.4 mg capsule 0.4 mg PO QAM #30 caps 10/02/22 10/15/22 Rx amoxicillin 500 mg-potassium 1 tablet PO Q12H #14 tabs 10/14/22 10/15/22 Rx clavulanate 125 mg tablet (Augmentin) Allergies Allergy/AdvReac Type Severity Reaction Status Date / Time No Known Allergies Allergy Verified 10/14/22 07:54 Vital Signs Vital Signs - 24 hr 10/15/22 22:05 10/15/22 22:05 10/15/22 23:09 Temperature 101.8 F H 101.6 F H Pulse Rate 105 H Respiratory Rate 18 18 Blood Pressure 124/61 Pulse Oximetry 95 97 Oxygen Delive
--- NOTE | 2022-10-16 11:40 | PC.NURSE ---
Patient changed to inpatient status from observation status.
--- NOTE | 2022-10-16 11:42 | PM.EVENT ---
Event Note Event Note Event Note: HP and discharge faxed to office of urology [facility] appointment Spoke with office staff it was faxed to [phone]
--- NOTE | 2022-10-16 14:00 | PC.NURSE ---
ABNORMAL URINE CULTURE NOTED. REVIEWED. CALL TO [facility]ITAL[facility], JESSICA. PT ON MEDICATION .
[2022-10-16] MEDS: TAMSULOSIN HCL 0.4 MG CAPSULE PO (17:03)
[2022-10-16] MEDS: FINASTERIDE 5 MG TABLET PO (17:03)
[2022-10-16] MEDS: CEFEPIME 1 GM/NS 50 ML 1 GM/50 ML BAG IVPB (20:32)
[2022-10-16] MEDS: ZOLPIDEM TARTRATE (*CRX) 5 MG TABLET 10 MG PO (23:55)
[2022-10-17] VITALS (7 sets, daily range): BP systolic 104–121; BP diastolic 47–63; PULSE 92–105; RESP 16–18; TEMP 36.5–38.2; O2SAT 94–98
[2022-10-17] MEDS: SODIUM CHLORIDE 0.9% IV 1,000 ML 100 ML IV CONT ×2 (05:08→16:20)
[2022-10-17 08:17] LABS: Hematocrit 25.8 % (37.0-46.0); Hemoglobin 8.6 g/dL (12.4-15.3); Mean Corpuscular HGB Conc 33.3 g/dL (32.0-36.0); Mean Corpuscular Hemoglobin 30.9 pg (27.0-31.0); Mean Corpuscular Volume 92.8 fL (78.0-102.0); Mean Platelet Volume 9.8 fl (8.7-11.0); Platelet Count Result 139 K/mm3 (150-420); Red Blood Count 2.78 M/mm3 (4.70-6.10); Red Cell Distribution Width 13.1 % (11.6-14.4); White Blood Count 9.5 K/mm3 (4.8-10.8)
[2022-10-17 08:18] LABS: Anion Gap 9 mmol/L (8-16); Blood Urea Nitrogen 31 mg/dL (7-18); Calcium 7.8 mg/dL (8.5-10.1); Carbon Dioxide 24 mmol/L (21-32); Chloride 107 mmol/L (98-108); Estimated CRCL calculation 28 ml/min; Estimated Glomerular Filt Rate 36; Glucose 98 mg/dL (70-99); Osmolality Calculated 296 mOsm/kg (285-295); Potassium 4.1 mmol/L (3.5-5.1); Sodium 140 mmol/L (136-145)
[2022-10-17] MEDS: CEFEPIME 1 GM/NS 50 ML 1 GM/50 ML BAG IVPB ×2 (09:01→20:45)
[2022-10-17] MEDS: ENOXAPARIN 30 MG/0.3 ML SYRINGE SUB-Q (09:01)
[2022-10-17] MEDS: FINASTERIDE 5 MG TABLET PO (09:03)
[2022-10-17] MEDS: polyethylene glycoL 3350 17 GM POWD.PACK PO (09:03)
[2022-10-17] MEDS: TAMSULOSIN HCL 0.4 MG CAPSULE PO (09:03)
--- NOTE | 2022-10-17 10:25 | PC.NURSE ---
Rate of IV fluids decreased to 75 ml/hr per CONSTRUCTION ADMINISTRATIVE ASSISTANT.
--- NOTE | 2022-10-17 10:59 | PM.IMHP ---
H&P: HPI History of Present Illness Date/Time: 10/17/22 10:59 Chief Complaint: sepsis , UTI PMFSH Surgical History Surgical History History of cataract removal with insertion of prosthetic lens History of inguinal hernia repair Social History Social History Smoking status: Never smoker Second hand tobacco smoke exposure: No Alcohol intake: current Drinks per week: 1 Substance use: never Substance use type: does not use Other substance usage details: glass wine with thelma meal. Lack of Transportation: No Lack of Food: Never True Current Housing: I Have Housing Concerned About Future Housing: No Difficulty Paying Gas/Electric Bills: No Difficulty Paying for Meds: No Currently Unemployed: No Education: Bachelor's Degree Difficulty w/ Childcare or Family Care: No Spiritual care concerns: No Meds Home Medications and Allergies Home Medications Medication Instructions Recorded Confirmed Type zolpidem 10 mg tablet 10 mg PO .Bedtime PRN insomnia #10 01/26/19 10/15/22 Rx tabs finasteride 5 mg tablet (Proscar) 5 mg PO QAM #30 tabs 10/02/22 10/15/22 Rx polyethylene glycol 3350 17 gram 17 g PO QAM #30 ea 10/02/22 10/15/22 Rx oral powder packet (Miralax) tamsulosin 0.4 mg capsule 0.4 mg PO QAM #30 caps 10/02/22 10/15/22 Rx amoxicillin 500 mg-potassium 1 tablet PO Q12H #14 tabs 10/14/22 10/15/22 Rx clavulanate 125 mg tablet (Augmentin) Allergies Allergy/AdvReac Type Severity Reaction Status Date / Time No Known Allergies Allergy Verified 10/14/22 07:54 Vital Signs Vital Signs - 24 hr 10/16/22 12:00 10/16/22 12:00 10/16/22 16:00 Temperature 97.8 F Pulse Rate 94 82 99 Respiratory Rate 16 Blood Pressure 99/53 L Pulse Oximetry 94 Oxygen Delivery Room Air 10/16/22 16:00 10/16/22 17:03 10/16/22 17:00 Temperature 100.7 F H 101.1 F H 101.1 F H Pulse Rate 99 Respiratory Rate 18 Blood Pressure 135/85 Pulse Oximetry 96 Oxygen Delivery Room Air 10/16/22 17:54 10/16/22 19:52 10/16/22 20:00 Temperature 100.6 F H 98.2 F Pulse Rate 88 96 Respiratory Rate 16 Blood Pressure 100/47 L Pulse Oximetry 96 Oxygen Delivery Room Air 10/16/22 21:54 10/17/22 00:00 10/17/22 00:00 Temperature 98.2 F 97.8 F Pulse Rate 93 93 Respiratory Rate 18 Blood Pressure 104/47 L Pulse Oximetry 94 Oxygen Delivery Room Air 10/17/22 04:00 10/17/22 04:00 10/17/22 08:00 Temperature 97.7 F Pulse Rate 93 93 105 H Respiratory Rate 18 Blood Pressure 115/63 Pulse Oximetry 98 Oxygen Delivery Room Air 10/17/22 08:00 Temperature 99.0 F Pulse Rate 104 H Respiratory Rate 16 Blood Pressure 121/63 Pulse Oximetry 95 Oxygen Delivery Room Air Exam Narrative: GENERAL: Ill-appearing, well-nourished, and in no acute distress. HEAD:Normocephalic, atraumatic. EYES: PERRLA and EOMI. ENT: Nares clear, no rhinorrhea or epistaxis. Mucous membranes moist. CHEST: Clear to auscultation. No respiratory distress. HEART: bradycardicRegular rate and rhythm. No murmur heard. Normal peripheral pulses. ABDOMEN: Soft, nontender, nondistended, normal active bowel sounds. EXTREMITIES: Normal range of motion. No edema. SKIN: Warm, dry, no rash. NEURO: No focal deficits. Alert and oriented x3. H&P: Results Labs Labs: Short CBC 10/17/22 Range/Units 07:35 WBC 9.5 (4.8-10.8) K/mm3 Hgb 8.6 L (12.4-15.3) g/dL Hct 25.8 L (37.0-46.0) % Plt Count 139 L (150-420) K/mm3 [facility] 10/17/22 07:35 Sodium 140 Potassium 4.1 Chloride 107 Carbon Dioxide 24 BUN 31 H Creatinine 1.80 H Glucose 98 Calcium 7.8 L Assessment and Plan Assessment and plan (1) Sepsis: Code(s): A41.9 - Sepsis, unspecified organism Status: Acute Assessment and Plan: IV fluids decreased to
--- NOTE | 2022-10-17 11:46 | PC.NURSE ---
Per TEACHER VOCAL orders telemetry discontinued on patient.
--- NOTE | 2022-10-17 17:02 | PC.NURSE ---
Patient had 99.9 T. Patient declines tylenol, but has a cool compress on his forehead.
[2022-10-17] MEDS: ACETAMINOPHEN 325 MG TABLET 650 MG PO ×2 (17:47→23:21)
--- NOTE | 2022-10-17 17:55 | PC.NURSE ---
Patient c/o slight headache. T 100.9, Tylenol administered.
[2022-10-17] MEDS: ZOLPIDEM TARTRATE (*CRX) 5 MG TABLET 10 MG PO (23:58)
[2022-10-18] VITALS: BP 124/76; PULSE 101; RESP 16; TEMP 36.7; O2SAT 94
[2022-10-18] MEDS: SODIUM CHLORIDE 0.9% IV 1,000 ML 75 ML IV CONT ×2 (05:16→19:14)
[2022-10-18 05:52] LABS: Hematocrit 27.1 % (37.0-46.0); Hemoglobin 9.1 g/dL (12.4-15.3); Mean Corpuscular HGB Conc 33.6 g/dL (32.0-36.0); Mean Corpuscular Hemoglobin 31.2 pg (27.0-31.0); Mean Corpuscular Volume 92.8 fL (78.0-102.0); Mean Platelet Volume 9.6 fl (8.7-11.0); Platelet Count Result 150 K/mm3 (150-420); Red Blood Count 2.92 M/mm3 (4.70-6.10); Red Cell Distribution Width 13.2 % (11.6-14.4); White Blood Count 8.7 K/mm3 (4.8-10.8)
[2022-10-18 06:09] LABS: Anion Gap 7 mmol/L (8-16); Blood Urea Nitrogen 31 mg/dL (7-18); Carbon Dioxide 27 mmol/L (21-32); Chloride 106 mmol/L (98-108); Estimated CRCL calculation 29 ml/min; Estimated Glomerular Filt Rate 38; Glucose 97 mg/dL (70-99); Osmolality Calculated 296 mOsm/kg (285-295); Potassium 4.1 mmol/L (3.5-5.1); Sodium 140 mmol/L (136-145)
[2022-10-18 08:00] VITALS: BP 133/72; PULSE 102; RESP 16; TEMP 36.8; O2SAT 95
[2022-10-18] MEDS: polyethylene glycoL 3350 17 GM POWD.PACK PO (09:13)
[2022-10-18] MEDS: ENOXAPARIN 30 MG/0.3 ML SYRINGE SUB-Q (09:14)
[2022-10-18] MEDS: FINASTERIDE 5 MG TABLET PO (09:15)
[2022-10-18] MEDS: TAMSULOSIN HCL 0.4 MG CAPSULE PO (09:15)
[2022-10-18] MEDS: CEFEPIME 1 GM/NS 50 ML 1 GM/50 ML BAG IVPB ×2 (09:16→20:12)
--- NOTE | 2022-10-18 10:39 | PM.IMPN ---
Progress Note: A&P Assessment and Plan (1) Sepsis: Code(s): A41.9 - Sepsis, unspecified organism Status: Acute Assessment and Plan: IV fluids decreased to 75 mls IV antibiotics cefepime Antipyretics for fever Strict intake and output Needs outpatient urology appointment Afebrile patient continue to improve (2) Urinary retention: Code(s): R33.9 - Retention of urine, unspecified Status: Acute Assessment and Plan: Harrell catheter Monitor labs Strict intake and output IV antibiotics cefepime Patient blood culture and urine culture all came back positive for Pseudomonas Aeruginosa (3) Acute kidney injury: Code(s): N17.9 - Acute kidney failure, unspecified Status: Acute Assessment and Plan: IV fluids Monitor line labs No nephrotoxic medication Urology appointment as indicated IV antibiotics (4) Anemia: Code(s): D64.9 - Anemia, unspecified Status: Acute Assessment and Plan: stable 10.9 (5) Hydronephrosis: Code(s): N13.30 - Unspecified hydronephrosis Status: Acute Assessment and Plan: continue IV antibiotics At Harrell placed Positive for gram negative Bacilli cefepime will cover this bug awaiting on culture and sensitivity . Patient blood culture and urine culture all came back positive for Pseudomonas Aeruginosa Subjective Date/time seen: 10/18/22 10:39 Interval history: Patient continues to have IV antibiotic of Cefepime his Patient blood culture and urine culture all came back positive for Pseudomonas Aeruginosa . His antibiotic will cover the bacteria that is growing. Patient Creatinine continue to improve. Recheck of his HgB since we decreased his IVF his hgb has improved from 8.4- 9.1. Patient denies pain and or discomfort and he is resting well eating and drinking and without any difficulties. Exam Narrative: GENERAL: Well appearing, well-nourished, and in no acute distress. HEAD:Normocephalic, atraumatic. EYES: PERRLA and EOMI. ENT: Nares clear, no rhinorrhea or epistaxis. Mucous membranes moist. CHEST: Clear to auscultation. No respiratory distress. HEART: bradycardic Regular rate and rhythm. No murmur heard. Normal peripheral pulses. ABDOMEN: Soft, nontender, nondistended, normal active bowel sounds. EXTREMITIES: Normal range of motion. No edema. SKIN: Warm, dry, no rash. NEURO: No focal deficits. Alert and oriented x3. Objective Data Vital Signs Vital Signs: Vital Signs - 24 hr 10/17/22 16:00 10/17/22 17:47 10/17/22 18:45 Temperature 99.9 F H 100.8 F H 98.1 F Pulse Rate 92 Respiratory Rate 16 Blood Pressure 111/61 Pulse Oximetry 98 Oxygen Delivery Room Air 10/17/22 20:00 10/18/22 00:00 10/18/22 08:00 Temperature 98.1 F 98.2 F Pulse Rate 92 101 H 102 H Respiratory Rate 16 16 16 Blood Pressure 124/76 133/72 Pulse Oximetry 98 94 95 Oxygen Delivery Room Air Room Air Room Air Intake/Output Intake/Output: Intake & Output 10/15/22 10/16/22 10/17/22 10/18/22 23:59 23:59 23:59 23:59 Intake Total 50 5068.333 4038.333 1873 Output Total 2100 2400 2375 Balance 50 2968.333 1638.333 -502 Meds/Results Medications: Active Medications Generic Name Dose Route Start Last Admin Trade Name Freq PRN Reason Stop Dose Admin Acetaminophen 650 mg 10/15/22 23:38 10/17/22 23:21 Acetaminophen 325 Mg Tablet PO 650 mg Q4H PRN Administration Mild Pain (1-3) or Fever Hydrocodone Bitart/Acetaminophen 1 tab 10/15/22 23:38 Hydrocodone/Acetaminophen (*Crx) 5-325 Mg Tablet PO Q4H PRN Moderate Pain (4-6) Enoxaparin Sodium 30 mg 10/16/22 09:00 10/18/22 09:14 Enoxaparin 30 Mg/0.3 Ml Syringe SUB-Q 30 mg DAILY ORIN Administration Finasteride 5 mg 10/16/22 09:00 10/18/22 09:15 Finasteride 5 Mg Tablet PO 5 mg QAM ORIN Administration Sodium Chloride 1,000 mls @ 75 mls/hr 10/15/22 23:40 10/18/22 05:16 Normal Sa
[2022-10-18] MEDS: ACETAMINOPHEN 325 MG TABLET 650 MG PO ×2 (13:15→19:22)
[2022-10-18 16:00] VITALS: BP 118/65; PULSE 64; RESP 16; TEMP 36.7; O2SAT 97
[2022-10-18 20:00] VITALS: PULSE 64; RESP 16; O2SAT 97
[2022-10-19] VITALS: BP 135/67; PULSE 80; RESP 17; TEMP 36.9; O2SAT 97
[2022-10-19] MEDS: ZOLPIDEM TARTRATE (*CRX) 5 MG TABLET 10 MG PO (00:12)
[2022-10-19] MEDS: HYDROcodone/acetaminophen (*CRX) 5-325 MG TABLET 1 TAB PO ×2 (00:19→21:48)
[2022-10-19 08:00] VITALS: BP 122/91; PULSE 72; RESP 14; TEMP 36.6; O2SAT 96
[2022-10-19 08:07] LABS: Hematocrit 28.4 % (37.0-46.0); Hemoglobin 9.6 g/dL (12.4-15.3); Mean Corpuscular HGB Conc 33.8 g/dL (32.0-36.0); Mean Corpuscular Hemoglobin 31.3 pg (27.0-31.0); Mean Corpuscular Volume 92.5 fL (78.0-102.0); Mean Platelet Volume 9.6 fl (8.7-11.0); Platelet Count Result 165 K/mm3 (150-420); Red Blood Count 3.07 M/mm3 (4.70-6.10); Red Cell Distribution Width 13.6 % (11.6-14.4); White Blood Count 6.4 K/mm3 (4.8-10.8)
[2022-10-19 08:20] LABS: Anion Gap 7 mmol/L (8-16); Blood Urea Nitrogen 31 mg/dL (7-18); Calcium 8.2 mg/dL (8.5-10.1); Carbon Dioxide 26 mmol/L (21-32); Chloride 106 mmol/L (98-108); Estimated CRCL calculation 34 ml/min; Estimated Glomerular Filt Rate 45; Glucose 101 mg/dL (70-99); Osmolality Calculated 294 mOsm/kg (285-295); Potassium 4.4 mmol/L (3.5-5.1); Sodium 139 mmol/L (136-145)
[2022-10-19] MEDS: FINASTERIDE 5 MG TABLET PO (09:01)
[2022-10-19] MEDS: ENOXAPARIN 30 MG/0.3 ML SYRINGE SUB-Q (09:01)
[2022-10-19] MEDS: TAMSULOSIN HCL 0.4 MG CAPSULE PO (09:01)
[2022-10-19] MEDS: CEFEPIME 1 GM/NS 50 ML 1 GM/50 ML BAG IVPB ×2 (09:02→11:28)
--- NOTE | 2022-10-19 10:04 | PM.IMPN ---
Progress Note: A&P Assessment and Plan (1) Sepsis: Code(s): A41.9 - Sepsis, unspecified organism Status: Resolved Assessment and Plan: No longer meeting Sepsis criteria. Will repeat Blood cultures in AM prior to discharge. Continue to monitor labs and VS. Levaquin 750 mg Q48 hours at discharge per ID pharmacist. (2) Urinary retention: Code(s): R33.9 - Retention of urine, unspecified Status: Acute Assessment and Plan: Will discharge with Ortiz catheter Continue Flomax Accurate I&O Follow up with Urology [facility] Levaquin in outpatient setting. (3) Acute kidney injury: Code(s): N17.9 - Acute kidney failure, unspecified Status: Acute Assessment and Plan: Resolving well with interval decrease in creatinine from 6.4-->1.53. Ortiz catheter to be left in place for continued drainage and pt. referred to Urology. (4) Anemia: Code(s): D64.9 - Anemia, unspecified Status: Acute Assessment and Plan: Stable with interval improvement from 9.1-->9.6. No signs of acute blood loss. Monitor with AM labs. (5) Hydronephrosis: Code(s): N13.30 - Unspecified hydronephrosis Status: Acute Assessment and Plan: See above plan for #2 and #3 Time Spent With Patient Time with patient: 15 - 25 minutes Subjective Date/time seen: 10/19/22 10:04 Interval history: This pt. was examined at the bedside today in interval assessment. He has no further complaints of pain and is independently ambulatory. His VSS today and reassuring. He has no leukocytosis and renal function continues to improve. Plan is to discontinue IVF today, encourage the patient to continue with his oral hydration and he will likely be discharged tomorrow barring no complications with prescription for Levaquin, ortiz catheter to remain in and to follow up with Urology [facility]. Pt. and family at bedside is agreeable to this plan. Review of Systems Review of Systems: All systems reviewed & are unremarkable except as noted in HPI and below Exam Const: General: comfortable and no acute distress HENMT: Face/Nose/Sinus: Normal nares present Mouth: Yes moist mucous membranes Eyes: General: appearance normal, both eyes and all related structures Neck: Neck: supple and no JVD Resp: Effort & Inspection: normal respiratory effort Auscultation: clear to auscultation bilaterally Cardio: Rate: regular rate Rhythm: regular rhythm Heart sounds: no gallops, no murmurs and no rubs GI: Inspection: non-distended GI Palp: Yes Soft to palpation, No Tenderness to palpation present (GI) and No Guarding due to palpation present (GI) Auscultation: normal bowel sounds Urinary Catheter: Urinary Catheter: patent and draining and urine clear Skin: General skin exam: normal color, no rashes or lesions noted and no erythema Lesions: no lesions noted Rashes: no rashes noted Wounds: no wounds Neuro: General: gait normal Speech: normal speech Motor exam (neuro): 5/5 motor strength present throughout and Normal motor muscle tone present throughout Sensory Exam: normal sensation Extrem: Other: Freely and equally MAEW without deficit. Psych: Mental Status: mental status grossly normal Affect: normal affect Objective Data Vital Signs Vital Signs: Vital Signs - 24 hr 10/18/22 16:00 10/18/22 20:00 10/19/22 00:00 Temperature 98.1 F 98.5 F Pulse Rate 64 64 80 Respiratory Rate 16 16 17 Blood Pressure 118/65 135/67 Pulse Oximetry 97 97 97 Oxygen Delivery Room Air Room Air Room Air 10/19/22 08:00 Temperature 97.8 F Pulse Rate 72 Respiratory Rate 14 Blood Pressure 122/91 H Pulse Oximetry 96 Oxygen Delivery Room Air Intake/Output Intake/Output: Intake & Output 10/16/22 10/17/22 10/18/22 10/19/22 23:59 23:59 23:59 23:59 Intake Total 5068.333 4038.333 4593 1480 Output Total 9380 2400 4653 2300 Balance 2968.333 1638.333 -32 -820 Meds/Results Medications:
[2022-10-19] MEDS: ACETAMINOPHEN 325 MG TABLET 650 MG PO (15:55)
[2022-10-19 16:45] VITALS: BP 116/78; PULSE 75; RESP 16; TEMP 36.6; O2SAT 96
[2022-10-19 20:00] VITALS: PULSE 75; RESP 16; O2SAT 96
[2022-10-19] MEDS: CEFEPIME 2 GM/NS 50 ML 2 GM/50 ML BAG IVPB (20:16)
[2022-10-20] VITALS: BP 119/67; PULSE 74; RESP 17; TEMP 36.8; O2SAT 96
[2022-10-20] MEDS: ZOLPIDEM TARTRATE (*CRX) 5 MG TABLET 10 MG PO (00:02)
[2022-10-20 05:27] LABS: Hematocrit 29.8 % (37.0-46.0); Hemoglobin 9.8 g/dL (12.4-15.3); Mean Corpuscular HGB Conc 32.9 g/dL (32.0-36.0); Mean Corpuscular Hemoglobin 30.3 pg (27.0-31.0); Mean Corpuscular Volume 92.3 fL (78.0-102.0); Mean Platelet Volume 9.7 fl (8.7-11.0); Platelet Count Result 182 K/mm3 (150-420); Red Blood Count 3.23 M/mm3 (4.70-6.10); Red Cell Distribution Width 13.2 % (11.6-14.4); White Blood Count 7.4 K/mm3 (4.8-10.8)
[2022-10-20 05:43] LABS: Alanine Aminotransferase 138 U/L (16-63); Albumin Level 2.1 g/dL (3.4-5.0); Alkaline Phosphatase 175 U/L (46-116); Anion Gap 9 mmol/L (8-16); Aspartate Amino Transferase 59 U/L (15-37); Bilirubin,Total 0.6 mg/dL (0.00-1.00); Blood Urea Nitrogen 33 mg/dL (7-18); Calcium 8.5 mg/dL (8.5-10.1); Carbon Dioxide 27 mmol/L (21-32); Chloride 104 mmol/L (98-108); Estimated CRCL calculation 33 ml/min; Estimated Glomerular Filt Rate 44; Glucose 110 mg/dL (70-99); Osmolality Calculated 298 mOsm/kg (285-295); Potassium 4.4 mmol/L (3.5-5.1); Sodium 140 mmol/L (136-145); Total Protein 5.8 g/dL (6.4-8.2)
[2022-10-20 05:46] LABS: Band Neutrophils Percent 0 % (0-6); Basophils Percent Manual 0 % (0-1); Eosinophils Absolute Manual 0.07 K/mm3 (0.02-0.5); Eosinophils Percent Manual 1 % (1-6); Lymphocytes Absolute Manual 0.66 K/mm3 (1.1-4.5); Lymphocytes Percent Manual 9 % (18-44); Monocytes Absolute Manual 0.66 K/mm3 (0.1-0.90); Monocytes Percent Manual 9 % (3-9); Neutrophils Absolute Manual 5.99 K/mm3 (1.3-6.7); Neutrophils Percent Manual 81 % (46-73); Platelet Estimate Adequate (Adequate)
[2022-10-20 08:00] VITALS: BP 133/80; PULSE 75; RESP 14; TEMP 36.7; O2SAT 96
--- NOTE | 2022-10-20 08:50 | PM.DS ---
DS: Admitting Diagnosis Discharge Date 10/20/2022 Admitting Diagnosis Sepsis LISETH Urinary retention Anemia Hydronephrosis DS: Discharge Diagnosis Discharge Diagnosis (1) Sepsis: Qualifiers: Sepsis type: Pseudomonas Sepsis acute organ dysfunction status: with acute organ dysfunction Severe sepsis acute organ dysfunction type: unspecified Code(s): A41.9 - Sepsis, unspecified organism Status: Resolved Assessment and Plan: No longer meeting Sepsis criteria. Repeat Blood cultures are drawn today and pending as pt. was bacteremic of Pseudomonas in 03/18 bottles. Continue to monitor labs and VS. Levaquin 750 mg Q48 hours at discharge per ID pharmacist. (2) Urinary retention: Code(s): R33.9 - Retention of urine, unspecified Status: Acute Assessment and Plan: Will discharge with Harrell catheter Continue Flomax and Proscar. Accurate I&O Follow up with Urology, Jessica Ross in the office on the . Appointment has been made previously. Levaquin in outpatient setting. (3) Acute kidney injury: Code(s): N17.9 - Acute kidney failure, unspecified Status: Acute Assessment and Plan: Resolving well with interval decrease in creatinine from 6.4-->1.53. Harrell catheter to be left in place for continued drainage and pt. referred to Urology. (4) Anemia: Code(s): D64.9 - Anemia, unspecified Status: Acute Assessment and Plan: Stable with interval improvement from 9.1-->9.8 today. No signs of acute blood loss. Monitor with AM labs. (5) Hydronephrosis: Code(s): N13.30 - Unspecified hydronephrosis Status: Acute Assessment and Plan: See above plan for #2 and #3 DS: Summary Hospital Course Reason for hospitalization: Sepsis, Urinary Retention Hospital Course: This very pleasant 82 year old male patient with PMH of recent Urinary retention on Flomax and Proscar was admitted to the hospital on 10/16/2022 with Sepsis, Acute Kidney Injury, Hydronephrosis and Urinary retention. He was previously hospitalized and discharged on 10/02/22 with the same and accidentally on 10/13/22, his catheter was pulled out. He presented to the ER on 10/14/22 with the inability to urinate and pain. The Bladder scan at that time demonstrated >1000 ml of urine in the bladder. At that time pts VS were unremarkable and his renal function was 1.65/28. Urine did reflect a UTI, so he was started on Augmentin and discharged to home. The next day on 10/15/22 the patient re-presented to the ER with complaints of having fever, fatigue, and several episodes of emesis. He was also unable to tolerate taking the Augmentin. At the time of presentation to ER he was febrile to 101.8, tachycardic to 105 and had Leukocytosis with Neutrophilia but no bandemia. In addition his Lactic acid was 2.4. Cultures were obtained, and abx were started with Cefepime to cover Sepsis and he was admitted to the hospital. His hospital course has been reassuring. He has tolerated IV abx of Cefepime and he has had interval improvement in his Creatinine to 1.53. He is no longer meeting Sepsis criteria and overall appears greatly improved with regards to his urinary complaints. Pt had one bottle of blood culture grow out Pseudomonas aeruginosa, and his urine culture grew out the same with sensitivity to the Quinolones. In conjuction with the Infectious Disease Pharmacist, the decision for discharge medication will be Levaquin 750 mg Q48 hrs at home. Pt will also be advised to follow up with his PCP for repeat labs that I will order for two days from now to monitor LFT's as well as renal function. In addition, he has an appointment with Jessica Ross on 10/28/22 for Urology follow up. This morning, pt is in good spirits and reports feeling greatly improved. He is anxious to go home. Please see detailed discharge instructions. Status at Discharge Cognitive/behavioral status at discharge: A&Ox3, appropriate and inte
[2022-10-20] MEDS: CEFEPIME 2 GM/NS 50 ML 2 GM/50 ML BAG IVPB (09:05)
[2022-10-20] MEDS: polyethylene glycoL 3350 17 GM POWD.PACK PO (09:06)
[2022-10-20] MEDS: ENOXAPARIN 30 MG/0.3 ML SYRINGE SUB-Q (09:06)
[2022-10-20] MEDS: TAMSULOSIN HCL 0.4 MG CAPSULE PO (09:07)
[2022-10-20] MEDS: FINASTERIDE 5 MG TABLET PO (09:07)
--- NOTE | 2022-10-20 11:11 | PC.NURSE ---
Pt discharged to home with family. Discharge instructions given regarding follow up Urology appointment this Wednesday, Call Dr. Perez's office for follow up , get labs drawn on . Pt and family instructed regarding Harrell care and S&S of urinary infection. Medications reviewed and new medication , Levaquin instructions given. Pt and family verbalized understanding of all instructions. Pt assisted to the car via WC per this RN.
--- NOTE | 2022-10-21 13:41 | PCNEURO ---
Pt states he received and understood his discharge instructions. Pt also states my care was very good .
== END 2022-10-20 11:05 | disposition home or self-care (01) | DRG 698 ==
LOC: CHSED 23:44 → CHS2ND 23:48
PROVIDERS: Nurse Practitioner Adult Health; Nurse Practitioner Family; Admitting Provider Internal Medicine; Emergency Provider Family Medicine; PCP Internal Medicine; Visit Provider Internal Medicine
DX: T83.511A Infection and inflammatory reaction due to indwelling urethral catheter, initial encounter (principal); A41.52 Sepsis due to Pseudomonas; N17.9 Acute kidney failure, unspecified; N13.30 Unspecified hydronephrosis; N39.0 Urinary tract infection, site not specified; D64.9 Anemia, unspecified
CPT/HCPCS: 36415; 71045; 80048; 80053; 81001; 83605; 85025; 85027; 86140; 87040; 87086; 87147; 87186; 87637; 93005; 96361; 96365; 96366; 96372; 96375; 99285; A9270; G0378; J0692; J1650; J2060; J2405; J7030

== ENCOUNTER 2022-10-22 08:31 | Outpatient (CLI) | payer MEDICARE, SELFPAY ==
[2022-10-22 08:46] LABS: Hematocrit 32.2 % (37.0-46.0); Hemoglobin 10.7 g/dL (12.4-15.3); Mean Corpuscular HGB Conc 33.2 g/dL (32.0-36.0); Mean Corpuscular Hemoglobin 31.3 pg (27.0-31.0); Mean Corpuscular Volume 94.2 fL (78.0-102.0); Mean Platelet Volume 9.4 fl (8.7-11.0); Platelet Count Result 293 K/mm3 (150-420); Red Blood Count 3.42 M/mm3 (4.70-6.10); Red Cell Distribution Width 13.4 % (11.6-14.4); White Blood Count 9.2 K/mm3 (4.8-10.8)
[2022-10-22 09:28] LABS: Alanine Aminotransferase 123 U/L (16-63); Albumin Level 2.8 g/dL (3.4-5.0); Alkaline Phosphatase 167 U/L (46-116); Anion Gap 12 mmol/L (8-16); Aspartate Amino Transferase 43 U/L (15-37); Bilirubin,Total 0.4 mg/dL (0.00-1.00); Blood Urea Nitrogen 38 mg/dL (7-18); Calcium 8.9 mg/dL (8.5-10.1); Carbon Dioxide 26 mmol/L (21-32); Chloride 102 mmol/L (98-108); Estimated Glomerular Filt Rate 37; Glucose 122 mg/dL (70-99); Osmolality Calculated 300 mOsm/kg (285-295); Potassium 4.3 mmol/L (3.5-5.1); Sodium 140 mmol/L (136-145); Total Protein 6.4 g/dL (6.4-8.2)
[2022-10-22 09:37] LABS: Band Neutrophils Percent 2 % (0-6); Basophils Percent Manual 0 % (0-1); Eosinophils Absolute Manual 0.09 K/mm3 (0.02-0.5); Eosinophils Percent Manual 1 % (1-6); Lymphocytes Absolute Manual 1.65 K/mm3 (1.1-4.5); Lymphocytes Percent Manual 18 % (18-44); Monocytes Absolute Manual 0.46 K/mm3 (0.1-0.90); Monocytes Percent Manual 5 % (3-9); Neutrophils Absolute Manual 6.99 K/mm3 (1.3-6.7); Neutrophils Percent Manual 74 % (46-73); Total Cells Counted 100
[2022-10-22 09:38] LABS: Platelet Estimate Adequate (Adequate)
== END 2022-10-22 08:32 | disposition home or self-care (01) ==
LOC: CHSLAB 08:33
PROVIDERS: PCP Internal Medicine; Visit Provider Nurse Practitioner Adult Health
DX: R33.9 Retention of urine, unspecified (principal); A41.9 Sepsis, unspecified organism; N17.9 Acute kidney failure, unspecified; D64.9 Anemia, unspecified; N39.0 Urinary tract infection, site not specified; N13.30 Unspecified hydronephrosis
CPT/HCPCS: 36415; 80053; 85025

== ENCOUNTER 2022-12-28 16:34 | Inpatient (IN) | payer MEDICARE, SELFPAY ==
[2022-12-28] VITALS (13 sets, daily range): BP systolic 125–160; BP diastolic 58–95; PULSE 69–87; RESP 13–18; TEMP 36.6–36.8; O2SAT 97–100
--- NOTE | ~2022-12-28 | XR_ITS ---
EXAMINATION: XR surgery orthopedic DATE: 12/29/2022 20:53 INDICATION: Intertrochanteric fracture of proximal left femur. TECHNIQUE: 4 intraoperative spot fluoroscopic views of left femur were obtained. I was not present. F luoroscopy exposure time was 1 minute 11 seconds. COMPARISON: Left hip radiographs 12/28/2022 FINDINGS: There is a comminuted intertrochanteric fracture of proximal femur in near-anatomic alignme nt status post open reduction internal fixation with antegrade intramedullary wyatt, femoral head/neck screw, and distal interlocking screw. 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 IMPRESSION: 1. Comminuted intertrochanteric fracture of proximal left femur status post open reduction internal f ixation. Reviewed, dictated and finalized at location E. IMPRESSION: 1. Comminuted intertrochanteric fracture of proximal left femur status post ope n reduction internal fixation.
--- NOTE | ~2022-12-28 | XR_ITS ---
EXAMINATION: XR chest 1V DATE: 12/28/2022 17:50 INDICATION: Hip pain. TECHNIQUE: A single frontal view of the chest was obtained. COMPARISON: Chest single view 10/15/2022 FINDINGS: A calcified left lung nodule and calcified left hilar and mediastinal lymph nodes are consi stent with old granulomatous disease. No pleural effusion or pneumothorax. The heart size is normal. IMPRESSION: 1. No acute cardiopulmonary disease. Reviewed, dictated and finalized at location E.
--- NOTE | ~2022-12-28 | XR_ITS ---
EXAMINATION: XR hip LT 2V w AP pelvis DATE: 12/28/2022 17:50 INDICATION: Left hip pain. TECHNIQUE: An anteroposterior view of the pelvis and 2 views of left hip were obtained. COMPARISON: None. FINDINGS: There is a comminuted intertrochanteric fracture of proximal left femur. The main distal fr acture fragment demonstrates 20 degrees varus angulation. There is mild osteoarthritis of the hips. T here is severe lumbar spondylosis. IMPRESSION: 1. Comminuted intertrochanteric fracture of proximal left femur. 2. Mild osteoarthritis of the hips. Reviewed, dictated and finalized at location E.
[2022-12-28] MEDS: MORPHINE SULFATE (*CRX) 4 MG/ML INJ IV PUSH (17:35)
--- NOTE | 2022-12-28 17:45 | ED.GENADULT ---
HPI - General Adult General Chief complaint: Fall Stated complaint: fall, hip injury Time Seen by Provider: 12/28/22 17:22 History of Present Illness HPI narrative: Patient is an 82-year-old male who presents ER with left hip pain. Reports he was cleaning his indoor pool when a bird flew inside. He started to hali the bird when he tripped and fell and landed on his left side. His hip struck the concrete and he had sudden onset pain. He then rolled into the pool. He had to crawl out of the pool and onto the side and then was unable to ambulate afterwards. He did not strike his head and he did not lose consciousness. He is on no blood thinners. He does have a chronic indwelling Harrell due to BPH and urinary retention. Related Data Allergies Allergy/AdvReac Type Severity Reaction Status Date / Time No Known Allergies Allergy Verified 10/14/22 07:54 Review of Systems Review of Systems: All systems reviewed & are unremarkable except as noted in HPI and below Constitutional: Constitutional: Denies chills, Denies fatigue and Denies fever(s) ENT: Denies nasal congestion and Denies sore throat Cardiovascular: Cardiovascular: Denies chest pain, Denies rapid heart rate and Denies radiating jaw, neck or arm pain Respiratory: Respiratory: Denies cough, Denies dyspnea and Denies wheezing Gastrointestinal: Gastrointestinal: Denies abdominal pain, Denies nausea and Denies vomiting Musculoskeletal: Musculoskeletal: Reports arthralgias and Denies joint swelling Neurologic: Denies numbness and Denies weakness PMFSH Surgical History Surgical History History of cataract removal with insertion of prosthetic lens History of inguinal hernia repair Social History Social History Smoking status: Never smoker Second hand tobacco smoke exposure: No Alcohol intake: current Drinks per week: 1 Substance use: never Substance use type: does not use Other substance usage details: glass wine with thelma meal. Lack of Transportation: No Lack of Food: Never True Current Housing: I Have Housing Concerned About Future Housing: No Difficulty Paying Gas/Electric Bills: No Difficulty Paying for Meds: No Currently Unemployed: No Education: Bachelor's Degree Difficulty w/ Childcare or Family Care: No Spiritual care concerns: No Exam Narrative: GENERAL: Well-appearing, well-nourished, and in no acute distress. HEAD: Normocephalic, atraumatic. EYES: PERRL and EOMI. ENT: Mucous membranes moist. CHEST: Clear to auscultation. No respiratory distress. HEART: Regular rate and rhythm. Normal peripheral pulses. ABDOMEN: Soft, nontender, nondistended. EXTREMITIES: Left lower extremity shortened and externally rotated. Hip and knee are flexed in position of comfort and supported by a pillow. Neurovascular intact. SKIN: Warm, dry, no rash. NEURO: Alert and oriented x3. PSYCH: Normal mood and affect. Course Course Emergency Course: Patient resting comfortably and informed of results. Admit to hospitalist service. Dr. Felix with orthopedic surgery consulted and will repair the hip. Vital Signs Vital signs: Vital Signs Temperature 97.8 F 12/28/22 16:34 Pulse Rate 85 12/28/22 16:34 Respiratory Rate 14 12/28/22 16:34 Blood Pressure 125/92 H 12/28/22 16:34 Pulse Oximetry 100 12/28/22 16:34 Oxygen Delivery Room Air 12/28/22 16:34 Temperature 97.8 F 12/28/22 16:34 Pulse Rate 74 12/28/22 19:31 Respiratory Rate 15 12/28/22 19:31 Blood Pressure 136/76 12/28/22 19:31 Pulse Oximetry 100 12/28/22 19:31 Oxygen Delivery Room Air 12/28/22 16:34 Medical Decision Making Vital Signs Vital Signs: Vital Signs Temperature 97.8 F 12/28/22 16:34 Pulse Rate 85 12/28/22 16:34 Respiratory Rate 14 12/28/22 16:34 Blood Pressure 125/92 H 12/28/22 16:34
[2022-12-28 18:05] LABS: Basophils Percent Auto 0.3 % (0.2-1.2); Eosinophils Percent Auto 0.3 % (0-4.4); Hematocrit 35.3 % (42.0-52.0); Hemoglobin 11.5 g/dL (14.0-18.0); Immature Granulocyte Absolute 0.04 K/mm3 (0.00-0.031); Immature Granulocyte Percent A 0.4 % (0-0.5); Lymphocytes Absolute Auto 0.77 K/mm3 (0.9-3.2); Lymphocytes Percent Auto 8.3 % (18.3-44.2); Mean Corpuscular HGB Conc 32.6 g/dl (32-36); Mean Corpuscular Hemoglobin 30.3 pg (26-34); Mean Corpuscular Volume 93.1 fl (80-100); Mean Platelet Volume 9.3 fl (7.4-10.4); Monocytes Absolute Auto 0.4 K/mm3 (0.1-0.6); Monocytes Percent Auto 4.7 % (2.6-8.5); Platelet Count Result 161 k/mm3 (150-375); Red Blood Count 3.79 M/mm3 (4.6-6.20); White Blood Count 9.3 K/mm3 (4.5-10.0)
[2022-12-28 18:16] LABS: Alanine Aminotransferase 17 U/L (6-50); Albumin Level 3.8 g/dL (3.5-5.1); Alkaline Phosphatase 72 U/L (38-126); Anion Gap 7 mmol/L (8-16); Aspartate Amino Transferase 24 U/L (17-59); Bilirubin,Total 0.6 mg/dL (0.2-1.3); Blood Urea Nitrogen 19 mg/dL (9-20); Calcium 8.8 mg/dL (8.4-10.2); Carbon Dioxide 24 mmol/L (22-30); Chloride 106 mmol/L (98-107); Estimated CRCL calculation 47 ml/min; Estimated Glomerular Filt Rate > 60; Glucose 117 mg/dL (65-110); Potassium 3.9 mmol/L (3.4-5.0); Sodium 137 mmol/L (137-145)
[2022-12-28 18:20] LABS: INR 1.1; Partial Thromboplastin Time 29.5 SECONDS (22.3-36.8); Prothrombin Time 14.8 Seconds (11.1-14.7)
[2022-12-28] MEDS: ONDANSETRON INJ 4 MG/2 ML VIAL IV PUSH (18:34)
[2022-12-28] MEDS: SODIUM CHLORIDE 0.9% IV 1,000 ML 999 ML (18:34)
--- NOTE | 2022-12-28 19:54 | PM.IMHP ---
H&P: HPI History of Present Illness Date/Time: 12/28/22 20:00 Chief Complaint: Left hip pain after fall. Narrative: This is a very pleasant and remarkably healthy 82-year-old male who presented to the emergency department via EMS from home for evaluation of left hip pain after a fall. Not long prior to arrival he was attempting to hali a bird who had gotten into their indoor pool area. He accidentally slipped and fell down on to a carpeted concrete floor before he rolled into the pool. He was able to swim to the side, get himself out, and call his son for help as he had pain in the left hip. He has some scrapes on his left arm but denies any other injury. There was no head trauma or loss of consciousness in the fall. X-ray showed a comminuted intertrochanteric fracture of the proximal left femur and he is being admitted in this setting for pain control and fixation. At the time my evaluation he is resting comfortably and has minimal discomfort as long as he is not moving the leg. He reports that the left foot feels cold when compared to the right foot though sensation is intact and he has good pulses. Review of Systems Review of Systems: Twelve systems were reviewed. No fever, chills, or sweats. No recent cold or flu symptoms. He denies exertional chest pain shortness a breath. He is extremely active in still runs 3 miles, 3 times a week. No syncope or near syncope. Except as documented, all other systems were reviewed and are negative. [facility] Past Medical History Medical History (Updated 12/28/22 @ 22:34 by Yesy Choudhary PA-C) Benign prostatic hyperplasia Surgical History Surgical History History of cataract removal with insertion of prosthetic lens History of inguinal hernia repair Family History Family History Father Acute myocardial infarction Son Diabetes mellitus Social History Social History (Updated 12/28/22 @ 22:34 by Yesy Choudhary PA-C) Social History: Surrogate medical decision maker: Denton Howard, liss Code status: Full code. Smoking status: Never smoker Second hand tobacco smoke exposure: No Alcohol intake: never Drinks per week: 1 Substance use: never Substance use type: does not use Other substance usage details: glass wine with thelma meal. Lack of Transportation: No Lack of Food: Never True Current Housing: I Have Housing Concerned About Future Housing: No Difficulty Paying Gas/Electric Bills: No Difficulty Paying for Meds: No Currently Unemployed: No Education: Bachelor's Degree Difficulty w/ Childcare or Family Care: No Additional living arrangements comments: The patient lives in his own home in [place]. He jose in [place], [place]. He has 2 adult sons. He enjoys running, has been multiple marathons over the years. He still runs 3 miles, 3 times a week. 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 Spiritual care concerns: No Meds Home Medications and Allergies Home Medications Medication Instructions Recorded Confirmed Type finasteride 5 mg tablet (Proscar) 5 mg PO QAM #30 tabs 10/02/22 12/28/22 Rx tamsulosin 0.4 mg capsule 0.4 mg PO QAM #30 caps 10/02/22 12/28/22 Rx psyllium 1 packet PO QAM 12/28/22 12/28/22 History zolpidem 10 mg tablet 10 mg PO HS insomnia 12/28/22 12/28/22 History Allergies Allergy/AdvReac Type Severity Reaction Status Date / Time No Known Allergies Allergy Verified 10/14/22 07:54 Vital Signs Vital Signs - 24 hr 12/28/22 16:34 12/28/22 16:38 12/28/22 16:39 Temperature 97.8 F Pulse Rate 85 81 75 Respiratory Rate 14 14 14 Blood Pressure 125/92 H 125/92 H Pulse Oximetry 100 100 100 Oxygen Delivery Room Air 12/28/22 16:45 12/28/22 16:46 12/28/22 17:00 Temperature Pulse Rate 79 82 80 Respiratory Rate 15 15 18 Blood
--- NOTE | 2022-12-28 20:11 | ADMGEN ---
This patient, Fabian Howard, was admitted to Medical Room 248-. Patient/family oriented to hospital policies and general routines including ID bracelet, bed and alarms, visiting hours, pain management, procedures, bathroom and other care routines, personal items, smoking policy, room service/diet, and visiting hours. Information on how to activate the Rapid Response Team has been discussed. Patient/Family are encouraged to report perceived risks to care and to ask questions if they do not understand what they are told or what they should do.
--- NOTE | 2022-12-28 20:50 | PM.CNOR ---
Assessment and Plan Assessment and plan (1) Closed intertrochanteric fracture of left femur: Qualifiers: Encounter type: initial encounter Fracture alignment: displaced Qualified Code(s): S72.142A - Displaced intertrochanteric fracture of left femur, initial encounter for closed fracture Code(s): S72.142A - Displaced intertrochanteric fracture of left femur, initial encounter for closed fracture Status: Acute Assessment and Plan: New patient evaluation for chief complaint left hip fracture. History, physical exam and radiographs reviewed with the patient. Intertrochanteric fracture left hip. Discussed the condition, nature, etiology and course of natural history with the patient. Treatment options including surgical and nonoperative treatment were reviewed. Risks and benefits of each as well as alternatives reviewed. The patient's questions were answered. Conservative treatment ice, pain control, mechanical dvt px. EKG ordered. Awaiting results. Discussed nonoperative and operative treatment options with the patient. Risks and benefits of each as well as alternatives were reviewed. All of the patient's questions were answered. The risks of surgery reviewed including but not limited to: Neurovascular damage, wound complication, infection, blood clot, pulmonary embolus, stroke, myocardial infarction, and anesthetic risks up to and including . Continued pain and possible dysfunction were explained. Specific risks of the procedure including later recurrence of deformity. No guarantees were offered. If hardware used, discussed risk of failure/ breakage and possible need for removal. If complications occur, the patient understands the need for further treatment, possible further surgery. Patient verbalizes understanding and wishes to proceed. PLAN: Left hip reduction with internal fixation. History of Present Illness HPI Consult date: 12/29/22 Requesting physician: Wilder Mccoy MD Consult reason: fracture Chief complaint: Intertrochanteric Fracture Left Narrative: 82 yo gentleman lives at home, independent ambulator, lost balance and fell onto left side. Left hip pain and inability to get up. Denies numbness and tingling. Review of Systems Constitutional: Constitutional: Denies fever(s) Eyes: Eyes: Denies blurry vision ENT: Reports Normal hearing present Cardiovascular: Cardiovascular: Denies chest pain and Denies dyspnea Respiratory: Respiratory: Denies dyspnea and Denies wheezing Gastrointestinal: Gastrointestinal: Denies abdominal pain Genitourinary: Genitourinary: Denies urinary urgency Musculoskeletal: Musculoskeletal: Reports as per HPI and Denies numbness Integumentary/Breasts: Skin/Breast: Denies changing lesions and Denies sores Neurologic: Reports Normal hearing present, Denies behavioral changes, Denies confusion, Denies numbness and Denies convulsions Psychiatric: Psychiatric: Denies behavioral changes, Denies confusion and Denies hallucinations Endocrine: Endocrine: Denies heat intolerance Hematologic/Lymphatic: Hematologic/Lymphatic: Denies easy bleeding Allergic/Immunologic: Allergic/Immunologic: Denies wheezing PMFSH Past Medical History Medical History (Updated 12/28/22 @ 22:34 by Yesy Choudhary PA-C) Benign prostatic hyperplasia Surgical History Surgical History History of cataract removal with insertion of prosthetic lens History of inguinal hernia repair Family History Family History Father Acute myocardial infarction Son Diabetes mellitus Social History Social History (Updated 12/28/22 @ 22:34 by Yesy Choudhary PA-C) Social History: Surrogate medical decision maker: Denton Howard, son Code status: Full code. Smoking status: Never smoker Second hand tobacco smoke exposure: No Alcohol intake: jason
[2022-12-28] MEDS: HYDROcodone/acetaminophen (*CRX) 5-325 MG TABLET 1 TAB PO (22:31)
[2022-12-28] MEDS: SODIUM CHLORIDE 0.9% IV 1,000 ML 125 ML IV CONT (22:32)
[2022-12-29] VITALS (13 sets, daily range): BP systolic 111–156; BP diastolic 50–84; PULSE 66–81; RESP 14–73; TEMP 36.7–37.4; O2SAT 97–100
[2022-12-29] MEDS: ZOLPIDEM TARTRATE (*CRX) 5 MG TABLET 10 MG PO
--- NOTE | 2022-12-29 | ECG_ITS ---
Measurements Intervals [place] Rate: 78 P: 75 NC: 175 QRS: 29 QRSD: 98 T: 21 QT: 398 QTc: 456 Interpretive Statements SINUS RHYTHM WITH OCCASIONAL VENTRICULAR PREMATURE COMPLEXES WITH OCCASIONAL SUPRAVENTRICULAR PREMATURE COMPLEXES COMPARED TO ECG 10/15/2022 22:33:52 SINUS RHYTHM NOW PRESENT Electronically Signed On 12-29-2022 15:01:54 CDT by Annamaria Sanchez M.D.
[2022-12-29 05:55] LABS: Hematocrit 28.5 % (42.0-52.0); Hemoglobin 9.4 g/dL (14.0-18.0); Mean Corpuscular Hemoglobin 30.6 pg (26-34); Mean Corpuscular Volume 92.8 fl (80-100); Mean Platelet Volume 9.7 fl (7.4-10.4); Platelet Count Result 149 k/mm3 (150-375); Red Blood Count 3.07 M/mm3 (4.6-6.20); Red Cell Distribution Width 12.9 % (11.5-14.5); White Blood Count 6.4 K/mm3 (4.5-10.0)
[2022-12-29 06:03] LABS: Appearance Urine Clear (Clear); Bilirubin Urine Negative (Negative); Blood Urine Negative (Negative); Color Urine Yellow (Yellow); Glucose Urine UA Negative (Negative); Ketones Urine Negative (Negative); Leukocyte Esterase Ur Negative LEU/UL (Negative); Nitrate Urine Negative (Negative); Protein Urine Negative (Negative); Specific Grav Ur 1.014 (1.001-1.035); Urobilinogen Urine 0.2 mg/dL (<2.0)
[2022-12-29 06:09] LABS: Anion Gap 5 mmol/L (8-16); Blood Urea Nitrogen 18 mg/dL (9-20); Carbon Dioxide 25 mmol/L (22-30); Chloride 106 mmol/L (98-107); Estimated CRCL calculation 52 ml/min; Estimated Glomerular Filt Rate > 60; Glucose 106 mg/dL (65-110); Magnesium 1.9 mg/dL (1.6-2.3); Sodium 136 mmol/L (137-145)
[2022-12-29 06:29] LABS: Add Urine Microscopic? NO
[2022-12-29] MEDS: SODIUM CHLORIDE 0.9% IV 1,000 ML 125 ML IV CONT (06:37)
[2022-12-29] MEDS: HYDROcodone/acetaminophen (*CRX) 5-325 MG TABLET 1 TAB PO ×2 (09:32→13:06)
--- NOTE | 2022-12-29 12:26 | PM.IMPN ---
Progress Note: A&P Assessment and Plan (1) Closed intertrochanteric fracture of left femur: Qualifiers: Encounter type: initial encounter Fracture alignment: displaced Qualified Code(s): S72.142A - Displaced intertrochanteric fracture of left femur, initial encounter for closed fracture Code(s): S72.142A - Displaced intertrochanteric fracture of left femur, initial encounter for closed fracture Status: Acute Assessment and Plan: X-ray shows a comminuted left inter trochanteric fracture. Analgesics are available as needed. Orthopedics consulted. PT/OT and DVT prophylaxis per orthopedics. Surgery scheduled for 7:00 p.m.. (2) Fall from ground level: Code(s): W18.30XA - Fall on same level, unspecified, initial encounter Status: Acute Assessment and Plan: See above (3) Benign prostatic hyperplasia: Code(s): N40.0 - Benign prostatic hyperplasia without lower urinary tract symptoms Status: Acute Assessment and Plan: Continue home medication. Subjective Date/time seen: 12/29/22 12:26 Interval history: Patient doing well today. Hip surgery scheduled for 7:00 p.m.. Pain is well controlled at this time. At the time of the fall he denies any dizziness, lightheadedness, or loss of consciousness. PT and OT ordered per Orthopedics as well as DVT prophylaxis. May need placement. Exam Narrative: GENERAL: Comfortable, no acute distress HENMT: moist mucous membranes EYES: EOM intact b/l NECK: no lymphadenopathy RESPIRATORY: clear to auscultation CARDIO: RRR GI: soft, nontender, bowel sounds present SKIN: no rashes EXTREMITIES: no edema, redness or tenderness; Limited range of motion of the left leg Objective Data Vital Signs Vital Signs: Vital Signs - 24 hr 12/28/22 16:34 12/28/22 16:38 12/28/22 16:39 Temperature 97.8 F Pulse Rate 85 81 75 Respiratory Rate 14 14 14 Blood Pressure 125/92 H 125/92 H Pulse Oximetry 100 100 100 Oxygen Delivery Room Air 12/28/22 16:45 12/28/22 16:46 12/28/22 17:00 Temperature Pulse Rate 79 82 80 Respiratory Rate 15 15 18 Blood Pressure 160/95 H Pulse Oximetry 100 99 100 Oxygen Delivery 12/28/22 17:01 12/28/22 17:15 12/28/22 17:16 Temperature Pulse Rate 77 75 81 Respiratory Rate 15 13 17 Blood Pressure 160/81 H 155/80 H Pulse Oximetry 100 100 100 Oxygen Delivery 12/28/22 19:24 12/28/22 19:31 12/28/22 20:20 Temperature Pulse Rate 87 74 Respiratory Rate 16 15 Blood Pressure 148/74 H 136/76 Pulse Oximetry 100 100 Oxygen Delivery Room Air 12/28/22 22:00 12/28/22 21:03 12/29/22 06:00 Temperature 98.2 F 98.8 F Pulse Rate 69 70 Respiratory Rate 16 16 Blood Pressure 136/58 L 128/62 Pulse Oximetry 100 97 98 Oxygen Delivery Room Air 12/29/22 08:32 Temperature Pulse Rate Respiratory Rate 16 Blood Pressure Pulse Oximetry 98 Oxygen Delivery Room Air Intake/Output Intake/Output: Intake & Output 12/26/22 12/27/22 12/28/22 12/29/22 23:59 23:59 23:59 23:59 Intake Total 500 1000 Output Total 200 Balance 500 800 Meds/Results Medications: Active Medications Generic Name Dose Route Start Last Admin Trade Name Freq PRN Reason Stop Dose Admin Acetaminophen 650 mg 12/28/22 18:32 Acetaminophen 325 Mg Tablet PO Q4H PRN Mild Pain (1-3) or Fever Hydrocodone Bitart/Acetaminophen 1 tab 12/28/22 18:32 12/29/22 09:32 Hydrocodone/Acetaminophen (*Crx) 5-325 Mg Tablet PO 1 tab Q4H PRN Administration Pain Rated 4-6 Finasteride 5 mg 12/29/22 09:00 12/29/22 08:32 Finasteride 5 Mg Tablet PO Not Given QAM ORIN Sodium Chloride 1,000 mls @ 125 mls/hr 12/28/22 18:35 12/29/22 06:37 Normal Saline Iv IV CONT 125 mls/hr .Q8H ORIN Administration Morphine Sulfate 2 mg 12/28/22 18:32 Morphine Sulfate (*Crx) 4 Mg/Ml Inj IV PUSH Q2H PRN Pain Rated 7-10
--- NOTE | 2022-12-29 15:30 | PC.NURSE ---
To OR via bed. Family at bedside. Harrell draining clear yellow urine. Verbal report given to Staci AMES and Nguyen AMES Preop Nurses.
[2022-12-29] MEDS: LACTATED RINGERS 1,000 ML 30 ML IV CONT ×2 (15:50→20:56)
[2022-12-29] MEDS: ACETAMINOPHEN 500 MG TABLET 1000 MG PO (17:06)
[2022-12-29] MEDS: KETOROLAC 15 MG/ML VIAL (*BKC) IV PUSH (17:08)
[2022-12-29] MEDS: TRANEXAMIC ACID 1,000MG/ISO100 1,000 MG/100 ML BAG 200 MG IVPB (17:11)
--- NOTE | 2022-12-29 19:09 | WPDANESEPPF ---
Anes - Initial Pre Proc Eval Procedure: Operation Date: 12/29/22 19:00 Proposed Procedures p Left Intertrochanteric Nail - Kuldeep Felix MD Date/Time: 12/29/22 19:09 Surgeon: Terence Reyes MD Pre Op Diagnosis: Intertrochanteric Fracture Left Patient Data Age: 82 Gender: M Height: 1.8 m Weight: 85 kg Last Vital Signs Temp 37.2 C 12/29/22 15:37 Pulse 81 12/29/22 15:37 Resp 16 12/29/22 15:37 BP 156/84 H 12/29/22 15:37 Pulse Ox 100 12/29/22 15:37 O2 Del Method Room Air 12/29/22 15:37 Allergies Allergy/AdvReac Type Severity Reaction Status Date / Time No Known Allergies Allergy Verified 12/29/22 15:52 Home Medications Medication Instructions Recorded Confirmed Type finasteride 5 mg tablet (Proscar) 5 mg PO QAM #30 tabs 10/02/22 12/28/22 Rx tamsulosin 0.4 mg capsule 0.4 mg PO QAM #30 caps 10/02/22 12/28/22 Rx psyllium 1 packet PO QAM 12/28/22 12/28/22 History zolpidem 10 mg tablet 10 mg PO HS insomnia 12/28/22 12/28/22 History Laboratory Tests 12/29/22 12/29/22 05:31 05:51 WBC 6.4 K/mm3 (4.5-10.0) RBC 3.07 L M/mm3 (4.6-6.20) Hgb 9.4 L g/dL (14.0-18.0) Hct 28.5 L % (42.0-52.0) MCV 92.8 fl (80-100) MCH 30.6 pg (26-34) MCHC 33.0 g/dl (32-36) RDW 12.9 % (11.5-14.5) Plt Count 149 L k/mm3 (150-375) MPV 9.7 fl (7.4-10.4) Sodium 136 L mmol/L (137-145) Potassium 4.0 mmol/L (3.4-5.0) Chloride 106 mmol/L (98-107) Carbon Dioxide 25 mmol/L (22-30) Anion Gap 5 L mmol/L (8-16) BUN 18 mg/dL (9-20) Creatinine 1.00 mg/dL (0.7-1.3) Estim Creat Clear Calc 52 ml/min Estimated GFR > 60 (59 - ) Glucose 106 mg/dL (65-110) Calcium 8.0 L mg/dL (8.4-10.2) Magnesium 1.9 mg/dL (1.6-2.3) Urine Color Yellow (Yellow) Urine Appearance Clear (Clear) Urine pH 7.0 (5.0-9.0) Ur Specific [place] 1.014 (1.001-1.035) Urine Protein Negative mg/dL (Negative) Urine Glucose (UA) Negative mg/dL (Negative) Urine Ketones Negative mg/dL (Negative) Ur Blood (Man) Negative (Negative) Urine Nitrate Negative (Negative) Urine Bilirubin Negative (Negative) Urine Urobilinogen 0.2 mg/dL (<2.0) Leukocyte Esterase Rfl Negative EVERT/UL (Negative) Patient hx anesthesia problems: none Family hx anesthesia problems: none Results Review: All pre-operative results and documents have been reviewed as part of the pre-operative evaluation. [facility] Past Medical History Medical History Benign prostatic hyperplasia Surgical History Surgical History History of cataract removal with insertion of prosthetic lens History of inguinal hernia repair Family History Family History Father Acute myocardial infarction Son Diabetes mellitus Social History Social History Social History: Surrogate medical decision maker: Denton Howard, son Code status: Full code. Smoking status: Never smoker Second hand tobacco smoke exposure: No Alcohol intake: never Drinks per week: 1 Substance use: never Substance use type: does not use Other substance usage details: glass wine with thelma meal. Lack of Transportation: No Lack of Food: Never True Current Housing: I Have Housing Concerned About Future Housing: No Difficulty Paying Gas/Electric Bills: No Difficulty Paying for Meds: No Currently Unemployed: No Education: Bachelor's Degree Difficulty w/ Childcare or Family Care: No Additional living arrangements comments: The patient lives in his own home in [place]. He jose
[2022-12-29] MEDS: ceFAZolin 2 GM/D5W 50 ML 2 GM/50 ML BAG IVPB (19:38)
--- NOTE | 2022-12-29 19:38 | W.PM.PROC2 ---
Procedure Note - Detailed Date of Procedure 12/29/22 Pre-op Diagnosis Intertrochanteric Fracture Left Post-op Diagnosis Same Procedure Performed Left hip trochanteric nail internal fixation Surgeon Kuldeep Felix MD Archives Technician 1st construction assistant Anesthesia General Indications 82-year-old fell at home and sustained a left hip intertrochanteric fracture. Desires operative treatment. Indicated for trochanteric nail fixation. Description of Procedure After informed consent the operative extremity was marked in the preoperative holding area. Patient received intravenous antibiotics. The patient was taken to the operative room, placed in the supine position, general anesthesia induced by the anesthesia team. Patient was placed on a fracture table with longitudinal traction applied to the left leg. Right leg was extended out of the field. The hip fracture was reduced to near anatomic position and verified with image intensification. A time-out was performed confirming the patient, site of the surgery and plan. The left lower extremity was prepped and draped sterilely from the knee to the iliac crest region using a ChloraPrep skin solution. Incision was made just proximal to greater trochanter down to the subcutaneous tissues. Hemostasis controlled with electrocautery. Blunt dissection through the fascia to the tip of the greater trochanter. A starter awl was placed at the tip of the greater trochanter into the medullary canal of the femur. This was checked with image intensification and was in good position. Intramedullary guide wyatt positioned. A one-step hand reaming done proximally. Intramedullary canal was reamed with a 12.5 millimeter flexible reamer. Neck angle selected off of preoperative radiographs temp plating. 125 degree 12mm X 20cm Nail opened on the back table and assembled. This was then inserted over the guide wyatt to the correct depth. Guide wyatt removed. Lag screw was then placed with a stab incision over the lateral femur using a 10 blade knife. Blunt dissection down to the lateral side of the bone. Soft tissue protectors placed. Guide pin placed in the center- center position of the femoral head and measured. 100 millimeter x 10 millimeter lag screw placed to correct depth and verified with image intensification. Traction released from the leg and compression of the fracture performed with the external compression device. Lag screw locked in place and the slide release screw mechanism was then removed. Distal locking of the nail then performed. Stab incision made lateral distal thigh. Blunt dissection down lateral side of the femur. Soft tissue protector placed. Femur drilled from lateral to medial through the distal nail. Distal femur measured and the appropriate size screw placed (44mm X 5mm). Image intensification confirmed the placement through the locking hole. Final image intensification confirmed reduction of the fracture and placement of the hardware. Wounds then thoroughly irrigated with antibiotic solution. Fascia repaired with 0 Vicryl interrupted suture. Subcutaneous tissue repaired with 00 Vicryl interrupted suture and skin repaired with 3 0 monocryl and dermabond. Sterile dressings applied. Patient then awoke from anesthesia, extubated, taken to recovery room stable condition. All sponge, needle and instrument counts correct at the end the case. Implants Arthrex trochanteric nail [id number], 100mm lag screw, 44mm distal locking screw. Estimated Blood Loss 100 Tourniquet Time 0 Drains No Packing No Pathology None sent Complications None Condition Stable Disposition PACU [facility] Billing Surgery - Charge Forward: Surgery Billing ([id number])
[2022-12-29] MEDS: BUPIVACAINE/EPINEPHRINE 0.5% 50 ML VIAL INFILTRATE (20:20)
--- NOTE | 2022-12-29 22:11 | PC.NURSE ---
pt tolerating clear liquids and full liquids well. advanced diet to diabetic consistent carb as ordered
[2022-12-29] MEDS: ceFAZolin 1 GM/NS 50 ML 1 GM/50 ML BAG IVPB (22:16)
[2022-12-29] MEDS: SODIUM CHLORIDE 0.9% IV 1,000 ML 75 ML IV CONT (22:16)
[2022-12-29] MEDS: ACETAMINOPHEN 325 MG TABLET 650 MG PO (23:45)
[2022-12-30] VITALS (11 sets, daily range): BP systolic 100–135; BP diastolic 53–68; PULSE 72–97; RESP 17–20; TEMP 37.3–38.3; O2SAT 97–100
[2022-12-30] MEDS: ZOLPIDEM TARTRATE (*CRX) 5 MG TABLET 10 MG PO ×2 (00:36→22:23)
[2022-12-30 05:15] LABS: Basophils Percent Auto 0.2 % (0.2-1.2); Eosinophils Absolute Auto 0.1 K/mm3 (0-0.3); Eosinophils Percent Auto 0.9 % (0-4.4); Hematocrit 26.4 % (42.0-52.0); Hemoglobin 8.5 g/dL (14.0-18.0); Immature Granulocyte Absolute 0.01 K/mm3 (0.00-0.031); Immature Granulocyte Percent A 0.2 % (0-0.5); Lymphocytes Absolute Auto 0.87 K/mm3 (0.9-3.2); Lymphocytes Percent Auto 15.2 % (18.3-44.2); Mean Corpuscular HGB Conc 32.2 g/dl (32-36); Mean Corpuscular Hemoglobin 30.1 pg (26-34); Mean Corpuscular Volume 93.6 fl (80-100); Mean Platelet Volume 9.5 fl (7.4-10.4); Monocytes Absolute Auto 0.6 K/mm3 (0.1-0.6); Monocytes Percent Auto 10.5 % (2.6-8.5); Neutrophils Absolute Auto 4.2 K/mm3 (1.3-6.7); Platelet Count Result 122 k/mm3 (150-375); Red Blood Count 2.82 M/mm3 (4.6-6.20); Red Cell Distribution Width 13.2 % (11.5-14.5); White Blood Count 5.7 K/mm3 (4.5-10.0)
[2022-12-30] MEDS: ceFAZolin 1 GM/NS 50 ML 1 GM/50 ML BAG IVPB ×2 (05:17→14:00)
[2022-12-30 05:28] LABS: Alanine Aminotransferase 14 U/L (6-50); Albumin Level 2.9 g/dL (3.5-5.1); Alkaline Phosphatase 52 U/L (38-126); Anion Gap 5 mmol/L (8-16); Aspartate Amino Transferase 23 U/L (17-59); Bilirubin,Total 0.5 mg/dL (0.2-1.3); Blood Urea Nitrogen 17 mg/dL (9-20); Calcium 7.8 mg/dL (8.4-10.2); Carbon Dioxide 23 mmol/L (22-30); Chloride 106 mmol/L (98-107); Estimated CRCL calculation 40 ml/min; Estimated Glomerular Filt Rate 53; Glucose 98 mg/dL (65-110); Potassium 4.1 mmol/L (3.4-5.0); Sodium 134 mmol/L (137-145)
[2022-12-30] MEDS: ACETAMINOPHEN 325 MG TABLET 650 MG PO ×2 (06:44→18:20)
--- NOTE | 2022-12-30 08:11 | PM.IMPN ---
Progress Note: A&P Assessment and Plan (1) Closed intertrochanteric fracture of left femur: Qualifiers: Encounter type: initial encounter Fracture alignment: displaced Qualified Code(s): S72.142A - Displaced intertrochanteric fracture of left femur, initial encounter for closed fracture Code(s): S72.142A - Displaced intertrochanteric fracture of left femur, initial encounter for closed fracture Status: Acute Assessment and Plan: 12/29/22: X-ray shows a comminuted left inter trochanteric fracture. Analgesics are available as needed. Orthopedics consulted. PT/OT and DVT prophylaxis per orthopedics. Surgery scheduled for 7:00 p.m. 12/30/22: Patient is postop day 1 of the left hip trochanteric internal nail fixation PT and OT ordered Continue pain medications as needed, currently pain is well controlled. Discuss case with care coordination for rehab placement/ discharge planning (2) Fall from ground level: Code(s): W18.30XA - Fall on same level, unspecified, initial encounter Status: Acute Assessment and Plan: See above (3) Benign prostatic hyperplasia: Code(s): N40.0 - Benign prostatic hyperplasia without lower urinary tract symptoms Status: Acute Assessment and Plan: 12/30/22: Continue home medication. Time Spent With Patient Time with patient: Greater than 35 minutes Subjective Date/time seen: 12/30/22 08:11 Interval history: This is an 82 year old male who presented to the ER via EMS on 12/28/2022 for evaluation of left hip pain s/p ground level fall. X-ray of left hip revealed a comminuted intertrochanteric fracture of the left proximal femur. Orthopedics was consulted. Patient went to OR on 12/29/22 for left hip trochanteric internal nail fixation. 12/29/2022: Patient doing well today. Hip surgery scheduled for 7:00 p.m.. Pain is well controlled at this time. At the time of the fall he denies any dizziness, lightheadedness, or loss of consciousness. PT and OT ordered per Orthopedics as well as DVT prophylaxis. May need placement. 12/30/2022: Patient doing well today. He is postop day 1 from a left hip trochanteric internal nail fixation. Lower dressing to left hip is clean dry intact. Pain is well controlled at this time. He is working with PT and OT today. Labs today were unremarkable. Case management looking into rehab placement. Review of Systems Review of Systems: All systems reviewed & are unremarkable except as noted in HPI and below Constitutional: Constitutional: Reports as per HPI and Reports no additional constitutional complaints Eyes: Eyes: Reports as per HPI and Reports no additional eye complaints ENT: Reports system reviewed and no additional complaints, except as documented and Reports as per HPI Cardiovascular: Cardiovascular: Reports as per HPI and Reports no additional cardiovascular complaints Respiratory: Respiratory: Reports as per HPI and Reports no additional respiratory complaints Gastrointestinal: Gastrointestinal: Reports as per HPI and Reports no additional gastrointestinal complaints Genitourinary: Genitourinary: Reports no additional male genitourinary complaints and Reports as per HPI Musculoskeletal: Musculoskeletal: Reports no additional musculoskeletal complaints and Reports as per HPI Integumentary/Breasts: Skin/Breast: Reports system reviewed and no additional complaints, except as docu and Reports as per HPI Neurologic: Reports system reviewed and no additional complaints, except as documented and Reports as per HPI Psychiatric: Psychiatric: Reports no additional psychiatric complaints and Reports as per HPI Exam Narrative: General:?A well-developed gentleman supine in bed in no acute distress. HEENT:??Normocephalic, atraumatic.? PERRL, EOMI. ? Oral mucosa moist. Neck:??Supple.No JVD, trachea midline, no adenopathy Respiratory:?Lungs are clear to auscu
--- NOTE | 2022-12-30 08:32 | PM.PNORT ---
Progress Note: A&P Assessment and Plan (1) Closed intertrochanteric fracture of left femur: Qualifiers: Encounter type: subsequent encounter Fracture alignment: displaced Fracture healing: with routine healing Qualified Code(s): S72.142D - Displaced intertrochanteric fracture of left femur, subsequent encounter for closed fracture with routine healing Code(s): S72.142A - Displaced intertrochanteric fracture of left femur, initial encounter for closed fracture Status: Acute Assessment and Plan: postoperative day 1 left hip trochanteric nail. Comfortable. Pain control. PT/ OT with weight-bearing as tolerated. DVT prophylaxis with low-dose aspirin as patient is at risk for bleeding with prostate hyperplasia and urinary retention. Dispo when medically stable- Looking at swing bed. (2) Urinary retention: Code(s): R33.9 - Retention of urine, unspecified Status: Acute Assessment and Plan: Harrell catheter. Continue per Urology. (3) Benign prostatic hyperplasia: Qualifiers: Lower urinary tract symptom presence: symptoms present Lower urinary tract symptom detail: urinary retention Qualified Code(s): N40.1 - Benign prostatic hyperplasia with lower urinary tract symptoms; R33.8 - Other retention of urine Code(s): N40.0 - Benign prostatic hyperplasia without lower urinary tract symptoms Status: Acute (4) Anemia: Qualifiers: Anemia type: other cause Other causes of anemia: acute posthemorrhagic Qualified Code(s): D62 - Acute posthemorrhagic anemia Code(s): D64.9 - Anemia, unspecified Status: Acute Assessment and Plan: Acute blood loss anemia from left hip fracture and status post surgery. Vitals stable at this time. Continue to monitor H&H. Subjective Subjective Date/Time Seen: 12/30/22 08:32 Post Op day: 1 Principal diagnosis: Left hip intertrochanteric fracture Interval history: Patient resting comfortably. Awake and alert. Less confused today. Oriented to person, place and time. Complains of minimal pain left hip. Exam Const: General: comfortable; No acute distress Resp: Effort & Inspection: normal respiratory effort and no audible wheezes Extrem: Right lower extremity: lower leg ( Negative Homans sign), ankle Details: normal ROM ( dorsiflexion and plantar flexion intact) and foot Details: vascular exam Details: dorsalis pedis pulse present and normal capillary refill, tendon exam Details: active flexion normal and active extension normal and motor-sensory exam Details: light-touch normal Location: in all toes; no edema Left lower extremity: normal to inspection, ankle Details: normal ROM and foot Details: vascular exam Details: dorsalis pedis pulse present and normal capillary refill and motor-sensory exam light-touch normal in all toes; no edema Objective Data Vital Signs Vital Signs: Vital Signs - 24 hr 12/29/22 14:00 12/29/22 15:37 12/29/22 20:56 Temperature 99.0 F 98.9 F 99.4 F Pulse Rate 67 81 73 Respiratory Rate 18 16 73 H Blood Pressure 128/58 L 156/84 H 143/68 H Pulse Oximetry 100 100 99 Oxygen Delivery Room Air Simple Face Mask Oxygen Flow Rate 6 12/29/22 21:00 12/29/22 21:15 12/29/22 21:30 Temperature Pulse Rate 69 70 72 Respiratory Rate 16 15 14 Blood Pressure 141/58 H 138/65 143/65 H Pulse Oximetry 99 97 97 Oxygen Delivery Room Air Room Air Room Air Oxygen Flow Rate 12/29/22 21:45 12/29/22 22:10 12/29/22 22:00 Temperature 98.5 F 98.5 F Pulse Rate 71 69 69 Respiratory Rate 14 20 20 Blood Pressure 130/67 131/71 131/71 Pulse Oximetry 99 98 98 Oxygen Delivery Room Air Oxygen Flow Rate 12/29/22 23:37 12/29/22 22:37 12/30/22 06:44 Temperature 98.5 F 98.1 F 100.4 F H Pulse Rate 66 70 Respiratory Rate 14 20 Blood Pressure 111/66 112/50 L Pulse Oximetry 99 99 Oxygen Delivery Oxygen Flow Rate 12/30/22 05:35 Temperature 100.4 F H
[2022-12-30] MEDS: FINASTERIDE 5 MG TABLET PO (08:52)
[2022-12-30] MEDS: TAMSULOSIN HCL 0.4 MG CAPSULE PO (08:52)
[2022-12-30] MEDS: PSYLLIUM POWDER PACKET 1 PACKET PO (08:52)
[2022-12-30] MEDS: ASPIRIN 81 MG ENTERIC TABLET PO (08:52)
--- NOTE | 2022-12-30 08:56 | PCPTNOTE ---
Attempted PT evaluation. Pt refusing therapy this morning stating Dr. Felix told pt he would not work with therapy until this afternoon due to his surgery being late yesterday. RN aware. Will follow.
--- NOTE | 2022-12-30 10:00 | PC.NURSE ---
Mechanical Operator spoke with Carmina at [facility] office and made aware of patients admission into hospital per Dr. Felix request if any follow up care needs done while patient is inpatient. Office reports patient was just seen on 12/25/2022 but will make providers aware.
--- NOTE | 2022-12-30 10:07 | WPDANESPN ---
Anes - Prog Note Post-Op Date/Time: 12/30/22 10:07 Cardiovascular status: normal Respiratory status: normal Airway patency: baseline Mental status: baseline Post-Op hydration status: normal Vital Signs: Last Vital Signs Temp 37.3 C 12/30/22 09:43 Pulse 72 12/30/22 09:43 Resp 18 12/30/22 09:43 BP 108/61 12/30/22 09:43 Pulse Ox 99 12/30/22 09:43 O2 Del Method Room Air 12/30/22 08:52 O2 Flow Rate 6 12/29/22 20:56 Pain Score (VAS): 0 I/O: Intake & Output 12/29/22 12/30/22 12/30/22 23:59 07:59 15:59 Intake Total 310 1165 120 Output Total 100 900 Balance 210 265 120 Laboratory Tests 12/30/22 04:52 12/30/22 04:52 12/30/22 04:52 WBC 5.7 RBC 2.82 L Hgb 8.5 L Hct 26.4 L MCV 93.6 MCH 30.1 MCHC 32.2 RDW 13.2 Plt Count 122 L MPV 9.5 Immature Gran % (Auto) 0.2 Neut % (Auto) 73.0 Lymph % (Auto) 15.2 L [place] % (Auto) 10.5 H Eos % (Auto) 0.9 Baso % (Auto) 0.2 Lymph # (Auto) 0.87 L [place] # (Auto) 0.6 Eos # (Auto) 0.1 Baso # (Auto) 0.0 Abs Immat Gran (auto) 0.01 Absolute Neuts (auto) 4.2 Absolute Nucleated RBC 0.0 Nucleated RBC % 0.0 Sodium 134 L Potassium 4.1 Chloride 106 Carbon Dioxide 23 Anion Gap 5 L BUN 17 Creatinine 1.30 Estim Creat Clear Calc 40 Estimated GFR 53 L Glucose 98 Calcium 7.8 L Total Bilirubin 0.5 AST 23 ALT 14 Alkaline Phosphatase 52 Total Protein 5.0 L Albumin 2.9 L Post-procedural complaints: none Patient Feedback: Patient satisfied with anesthetic care.
[2022-12-30] MEDS: HYDROcodone/acetaminophen (*CRX) 5-325 MG TABLET 1 TAB PO ×2 (11:34→22:23)
[2022-12-31 05:13] LABS: Hematocrit 25.4 % (42.0-52.0); Hemoglobin 8.1 g/dL (14.0-18.0); Mean Corpuscular HGB Conc 31.9 g/dl (32-36); Mean Corpuscular Hemoglobin 30.2 pg (26-34); Mean Corpuscular Volume 94.8 fl (80-100); Mean Platelet Volume 9.6 fl (7.4-10.4); Platelet Count Result 113 k/mm3 (150-375); Red Blood Count 2.68 M/mm3 (4.6-6.20); Red Cell Distribution Width 13.1 % (11.5-14.5); White Blood Count 7.1 K/mm3 (4.5-10.0)
[2022-12-31 05:29] LABS: Anion Gap 4 mmol/L (8-16); Blood Urea Nitrogen 22 mg/dL (9-20); Calcium 7.9 mg/dL (8.4-10.2); Carbon Dioxide 24 mmol/L (22-30); Chloride 105 mmol/L (98-107); Estimated CRCL calculation 35 ml/min; Estimated Glomerular Filt Rate 45; Glucose 110 mg/dL (65-110); Potassium 4.1 mmol/L (3.4-5.0); Sodium 133 mmol/L (137-145)
[2022-12-31] MEDS: ACETAMINOPHEN 325 MG TABLET 650 MG PO (05:48)
[2022-12-31 06:00] VITALS: BP 140/70; PULSE 79; RESP 17; TEMP 36.8; O2SAT 99
[2022-12-31] MEDS: PSYLLIUM POWDER PACKET 1 PACKET PO (06:39)
[2022-12-31 08:00] VITALS: O2SAT 99
--- NOTE | 2022-12-31 08:13 | PM.DS ---
DS: Admitting Diagnosis Discharge Date 12/31/22 Admitting Diagnosis Closed intertrochanteric fracture of left femur fall from ground level benign prostatic hyperplasia DS: Discharge Diagnosis Discharge Diagnosis (1) Closed intertrochanteric fracture of left femur: Qualifiers: Encounter type: subsequent encounter Fracture alignment: displaced Fracture healing: with routine healing Qualified Code(s): S72.142D - Displaced intertrochanteric fracture of left femur, subsequent encounter for closed fracture with routine healing Code(s): S72.142A - Displaced intertrochanteric fracture of left femur, initial encounter for closed fracture Status: Acute (2) Fall from ground level: Code(s): W18.30XA - Fall on same level, unspecified, initial encounter Status: Acute (3) Benign prostatic hyperplasia: Qualifiers: Lower urinary tract symptom detail: urinary retention Lower urinary tract symptom presence: symptoms present Qualified Code(s): N40.1 - Benign prostatic hyperplasia with lower urinary tract symptoms; R33.8 - Other retention of urine Code(s): N40.0 - Benign prostatic hyperplasia without lower urinary tract symptoms Status: Acute DS: Summary Hospital Course Reason for hospitalization: closed intertrochanteric fracture of left femur status post IM nailing and fixation of the left hip trochanteric Hospital Course: This is an 82 old male who presented to the ER via EMS on 12/28/2022 for evaluation of left hip pain status post ground level fall. X-ray of the left hip revealed the comminuted intratrochanteric fracture of the left proximal femur. orthopedics was consulted and to patient to the OR on 12/29/2022 for left hip trochanteric internal nail fixation. Patient was ordered PT and OT which [facility]. Case coordination helped with placement to [place] rehab. Patient stable from a medical standpoint. Patient agreeable with plan of care and continuing rehab at [facility]. Patient ready for discharge. Status at Discharge Cognitive/behavioral status at discharge: alert oriented x4 Functional status at discharge: uses cane/walker Overall status at discharge: patient is progressing back to baseline Time Spent with Patient Time attestation: Total time spent providing and/or coordinating discharge services: Time spent: Greater than 30 minutes Exam Narrative: General:?A well-developed gentleman supine in bed in no acute distress. HEENT:??Normocephalic, atraumatic.? PERRL, EOMI. ? Oral mucosa moist. Neck:??Supple.No JVD, trachea midline, no adenopathy. Respiratory:?Lungs are clear to auscultation bilaterally, no adventitious lung sounds. . Cardiovascular:??Regular rate and rhythm with normal S1-S2. No murmurs, gallops, or friction rubs noted. Gastrointestinal:??Abdomen is soft, nontender, and nondistended with normoactive bowel sounds. Skin:??Warm and dry. A few skin tears on the left forearm. OR dressing to left hip clean, dry, and intact. Extremities:??No cyanosis, clubbing, or edema. Pedal pulses intact. Musculoskeletal:?Left hip He is neurovascularly intact distal to the fracture site. Limited ROM left leg. Neurological:??Alert and oriented x3. No gross focal deficits. Psychiatric:??Pleasant and cooperative with normal mood and affect.? DS: Data Data Completed and Pending Completed studies during hospitalization: chest x-ray hip/pelvis x-ray intraoperative x-ray Pending studies at discharge: none Labs on day of discharge: Labs from last 24 hours 12/31/22 04:53 WBC 7.1 RBC 2.68 L Hgb 8.1 L Hct 25.4 L MCV 94.8 MCH 30.2 MCHC 31.9 L RDW 13.1 Plt Count 113 L MPV 9.6 Sodium 133 L Potassium 4.1 Chloride 105 Carbon Dioxide 24 Anion Gap 4 L BUN 22 H Creatinine 1.50 H Estim Creat Clear Calc 35 Estimated GFR 45 L Glucose 110 Calcium 7.9 L Procedures/Treatments: status
[2022-12-31] MEDS: ASPIRIN 81 MG ENTERIC TABLET PO (08:23)
[2022-12-31] MEDS: FINASTERIDE 5 MG TABLET PO (08:23)
[2022-12-31] MEDS: TAMSULOSIN HCL 0.4 MG CAPSULE PO (08:24)
--- NOTE | 2022-12-31 09:19 | PM.PNORT ---
Progress Note: A&P Assessment and Plan (1) Closed intertrochanteric fracture of left femur: Qualifiers: Encounter type: subsequent encounter Fracture alignment: displaced Fracture healing: with routine healing Qualified Code(s): S72.142D - Displaced intertrochanteric fracture of left femur, subsequent encounter for closed fracture with routine healing <Tammie M. Denise, [employer] - Last Filed: 12/31/22 11:47> Code(s): S72.142A - Displaced intertrochanteric fracture of left femur, initial encounter for closed fracture <Tammie M. Ruwe, [employer] - Last Filed: 12/31/22 11:47> Status: Acute <Tammie M. Ruwe, [employer] - Last Filed: 12/31/22 11:47> Assessment and Plan: postoperative day 2 left hip trochanteric nail. Comfortable. Pain control. PT/ OT with weight-bearing as tolerated. DVT prophylaxis with low-dose aspirin as patient is at risk for bleeding with prostate hyperplasia and urinary retention. Dispo when medically stable- Looking at swing bed. Possibly today depending on therapy. Dressing change. <Kuldeep Felix MD - Last Filed: 12/31/22 10:10> (2) Urinary retention: Code(s): R33.9 - Retention of urine, unspecified <Tammie M. Jamiealexa, [employer] - Last Filed: 12/31/22 11:47> Status: Acute <Tammie M. Denise, [employer] - Last Filed: 12/31/22 11:47> Assessment and Plan: Harrell catheter. Continue per Urology. <Kuldeep Felix MD - Last Filed: 12/31/22 10:10> (3) Benign prostatic hyperplasia: Qualifiers: Lower urinary tract symptom detail: urinary retention Lower urinary tract symptom presence: symptoms present Qualified Code(s): N40.1 - Benign prostatic hyperplasia with lower urinary tract symptoms; R33.8 - Other retention of urine <Tammie M. Rualexa, [employer] - Last Filed: 12/31/22 11:47> Code(s): N40.0 - Benign prostatic hyperplasia without lower urinary tract symptoms <Tammie M. Denise, [employer] - Last Filed: 12/31/22 11:47> Status: Acute <Tammie M. Ruwe, [employer] - Last Filed: 12/31/22 11:47> (4) Anemia: Qualifiers: Anemia type: other cause Other causes of anemia: acute posthemorrhagic Qualified Code(s): D62 - Acute posthemorrhagic anemia <LAKISHA Ludwig - Last Filed: 12/31/22 11:47> Code(s): D64.9 - Anemia, unspecified <LAKISHA Ludwig - Last Filed: 12/31/22 11:47> Status: Acute <LAKISHA Ludwig - Last Filed: 12/31/22 11:47> Assessment and Plan: Acute blood loss anemia from left hip fracture and status post surgery. Vitals stable at this time. Continue to monitor H&H. <Kuldeep Felix MD - Last Filed: 12/31/22 10:10> Subjective Subjective Date/Time Seen: 12/31/22 09:19 <Tammie Walker LAKISHA - Last Filed: 12/31/22 11:47> Post Op day: 2 <Kuldeep Felix MD - Last Filed: 12/31/22 10:10> Principal diagnosis: Left hip intertrochanteric fracture <Kuldeep Felix MD - Last Filed: 12/31/22 10:10> Interval history: Patient resting comfortably. Awake and alert. Less confused today. Oriented to person, place and time. Complains of minimal pain left hip. <Kuldeep Felix MD - Last Filed: 12/31/22 10:10> Review of Systems Review of Systems: All systems reviewed & are unremarkable except as noted in HPI and below <LAKISHA Ludwig - Last Filed: 12/31/22 11:47> Exam Const: General: comfortable; No acute distress <Kuldeep Felix MD - Last Filed: 12/31/22 10:10> Resp: Effort & Inspection: normal respiratory effort and no audible wheezes <Kuldeep Felix MD - Last Filed: 12/31/22 10:10> Extrem: Right lower extremity: lower leg ( Negative Homans sign), ankle Details: normal ROM ( dorsiflexion and plantar flexion intact) and foot Details: vascular exam Details: dorsalis pedis pulse present and normal capillary refill, tendon exam Details: active flexion normal and active extension normal and motor-sensory exam Details: light-touch normal
[2022-12-31] MEDS: HYDROcodone/acetaminophen (*CRX) 5-325 MG TABLET 1 TAB PO (12:57)
--- NOTE | 2022-12-31 13:08 | PC.NURSE ---
On 12/31/22, the student, [Case Porter], provided care and completed [facility] documentation on this patient. I have reviewed the student's documentation and agree with the findings.
--- NOTE | 2022-12-31 14:16 | PC.NURSE ---
On 12/31/22, the student, [Merna Ramon], provided care and completed [facility] documentation on this patient. I have reviewed the student's documentation and agree with the findings.
[2022-12-31 15:37] VITALS: BP 131/60; PULSE 101; RESP 16; TEMP 36.9; O2SAT 99
== END 2022-12-31 16:47 | disposition swing bed (61) | DRG 481 ==
LOC: ANHED 18:24 → ANH2MED 19:50
PROVIDERS: Internal Medicine; Internal Medicine Critical Care Medicine; Orthopaedic Surgery; Physician Assistant; Admitting Provider Hospitalist; Emergency Provider Emergency Medicine; PCP Internal Medicine; Visit Provider Nurse Practitioner Acute Care
PROC: 0QS736Z Reposition Left Upper Femur with Intramedullary Internal Fixation Device, Percutaneous Approach (ICD-10-PCS; CPT 27245; principal; 2022-12-29 19:00)
DX: S72.142A Displaced intertrochanteric fracture of left femur, initial encounter for closed fracture (principal); D62 Acute posthemorrhagic anemia; N40.1 Benign prostatic hyperplasia with lower urinary tract symptoms; R33.8 Other retention of urine; W01.0XXA Fall on same level from slipping, tripping and stumbling without subsequent striking against object, initial encounter
CPT/HCPCS: 36415; 71045; 73502; 80048; 80053; 81003; 83735; 85025; 85027; 85610; 85730; 93005; 96374; 96375; 97110; 97116; 97161; 97165; 97530; 97535; 99199; 99285; A9270; C1713; J0690; J1885; J2250; J2270; J2371; J2405; J2704; J3010; J7030; J7120

== ENCOUNTER 2022-12-31 17:45 | Inpatient (IN) | payer MEDICARE, SELFPAY ==
[2022-12-31 17:15] VITALS: PULSE 92; RESP 16; O2SAT 99; BMI 24.8
--- NOTE | 2022-12-31 18:19 | PC.NURSE ---
Nguyen nurse at [facility] called report at [phone]. Patient arrived on unit via stretcher, accompanied by boring machine set up operator. Patient required 3 assist to transfer from stretcher to bed. Patient's sons arrived on unit shortly after. Personal items include a cell phone, black wrist watch, electric razor in shaving bag, black robe and 1 change of clothes. Patient educated on use of call light, bed controls, Hospital visiting hours, use of rapid response system and general hospital policies. Patient and family voiced understanding.
[2022-12-31 20:00] VITALS: PULSE 92; RESP 16; O2SAT 99
[2022-12-31] MEDS: ZOLPIDEM TARTRATE (*CRX) 5 MG TABLET 10 MG PO (23:03)
[2022-12-31] MEDS: HYDROcodone/acetaminophen (*CRX) 5-325 MG TABLET 1 TAB PO (23:05)
[2023-01-01] VITALS: BP 135/51; PULSE 91; RESP 18; TEMP 37.7; O2SAT 100
[2023-01-01 08:00] VITALS: BP 116/66; PULSE 95; RESP 16; TEMP 37.2; O2SAT 98
[2023-01-01] MEDS: FINASTERIDE 5 MG TABLET PO (09:20)
[2023-01-01] MEDS: TAMSULOSIN HCL 0.4 MG CAPSULE PO (09:20)
[2023-01-01] MEDS: ASPIRIN 81 MG ENTERIC TABLET PO (09:21)
[2023-01-01] MEDS: PSYLLIUM POWDER PACKET 1 PACKET PO (09:21)
--- NOTE | 2023-01-01 11:28 | PM.IMHP ---
H&P: HPI History of Present Illness Date/Time: 01/01/23 11:28 Chief Complaint: Fall with hip fracture Narrative: This is a very pleasant 82-year-old male in excellent health with a past medical history of BPH requiring Harrell placement. He presented to the [facility] on 12/28 to be evaluated for left hip pain after falling at home. He states he was cleaning around his indoor pool when he slipped hitting the concrete and then rolling into the pool. He was able to drag himself out of the pool and into the house where he called his son for help. Imaging showed a comminuted intertrochanteric fracture of the proximal left femur. On 12/29 he underwent surgery with Dr. Felix for a left hip trochanteric nail internal fixation. His hospital stay was unremarkable. He is being admitted to [facility] for further rehab. He seen this morning with his son at the bedside. He is up in a chair and has just finished working with therapy. He appears well and is in no distress. He does say that he has some mild hip discomfort after working with therapy however his pain is controlled with his current p.r.n. medications. Otherwise he has no complaints. He states that he is eating and drinking well and his last bowel movement was Wednesday. He did receive Metamucil this morning and that typically helps to regulate him. Review of Systems Review of Systems: All systems reviewed & are unremarkable except as noted in HPI and below PMFSH Past Medical History Medical History (Updated 01/01/23 @ 16:47 by Mayra Mason APRN) Benign prostatic hyperplasia Chronic indwelling Harrell catheter Surgical History Surgical History (Updated 01/01/23 @ 16:48 by Mayra Mason APRN) History of cataract removal with insertion of prosthetic lens History of inguinal hernia repair Status post hip surgery Family History Family History Father Acute myocardial infarction Son Diabetes mellitus Social History Social History Social History: Surrogate medical decision maker: Denton Howard, liss Code status: Full code. Smoking status: Never smoker Second hand tobacco smoke exposure: No Alcohol intake: never Drinks per week: 1 Substance use: never Substance use type: does not use Other substance usage details: glass wine with thelma meal. Lack of Transportation: No Lack of Food: Never True Current Housing: I Have Housing Concerned About Future Housing: No Difficulty Paying Gas/Electric Bills: No Difficulty Paying for Meds: No Currently Unemployed: No Education: Bachelor's Degree Difficulty w/ Childcare or Family Care: No Additional living arrangements comments: The patient lives in his own home in [place]. He jose in [place], [place]. He has 2 adult sons. He enjoys running, has been multiple marathons over the years. He still runs 3 miles, 3 times a week. 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 Spiritual care concerns: No Meds Home Medications and Allergies Home Medications Medication Instructions Recorded Confirmed Type finasteride 5 mg tablet (Proscar) 5 mg PO QAM #30 tabs 10/02/22 12/31/22 Rx tamsulosin 0.4 mg capsule 0.4 mg PO QAM #30 caps 10/02/22 12/31/22 Rx psyllium 1 packet PO QAM 12/28/22 12/31/22 History zolpidem 10 mg tablet 10 mg PO HS insomnia 12/28/22 12/31/22 History aspirin 81 mg tablet,delayed 81 mg PO QAM recent hip fracture/ 12/31/22 12/31/22 Rx release surgery #35 tabs hydrocodone 5 mg-acetaminophen 325 1 tablet PO Q4H PRN Pain Rated 4-6 12/31/22 12/31/22 Rx mg tablet #30 tabs Allergies Allergy/AdvReac Type Severity Reaction Status Date / Time No Known Allergies Allergy Verified 12/29/22 15:52 Vital Signs Vital Signs - 24 hr 12/31/22 17:15 12/31/22 20:00 01/01/23 00:00 Temperature 99.8 F H Pulse Rat
[2023-01-01] MEDS: HYDROcodone/acetaminophen (*CRX) 5-325 MG TABLET 1 TAB PO ×2 (12:36→22:49)
[2023-01-01 16:00] VITALS: BP 105/52; PULSE 95; RESP 16; TEMP 37.6; O2SAT 98
--- NOTE | 2023-01-01 18:07 | PC.NURSE ---
Changed patient's dressing. Surgical sites well approximated with no s/s infection, bruising or drainage. Patient tolerated well.
[2023-01-01] MEDS: ZOLPIDEM TARTRATE (*CRX) 5 MG TABLET 10 MG PO (22:50)
[2023-01-01 23:47] VITALS: BP 110/62; PULSE 92; RESP 16; TEMP 37.5; O2SAT 92
[2023-01-02 05:38] LABS: Basophils Absolute Auto 0.02 K/mm3 (0.00-0.10); Basophils Percent Auto 0.4 % (0.0-1.0); Eosinophils Percent Auto 4.1 % (1.0-6.0); Hematocrit 22.4 % (37.0-46.0); Hemoglobin 7.4 g/dL (12.4-15.3); Immature Granulocyte Absolute 0.02 K/mm3 (0.00-0.00); Immature Granulocyte Percent A 0.4 % (0.0-0.0); Lymphocytes Percent Auto 26.5 % (18.0-42.0); Mean Corpuscular Hemoglobin 30.2 pg (27.0-31.0); Mean Corpuscular Volume 91.4 fL (78.0-102.0); Mean Platelet Volume 9.8 fl (8.7-11.0); Monocytes Absolute Auto 0.57 K/mm3 (0.10-0.90); Monocytes Percent Auto 11.6 % (2.0-11.0); Neutrophils Absolute Auto 2.8 K/mm3 (1.7-7.2); Platelet Count Result 140 K/mm3 (150-420); Red Blood Count 2.45 M/mm3 (4.70-6.10); Red Cell Distribution Width 12.6 % (11.6-14.4); White Blood Count 4.9 K/mm3 (4.8-10.8)
[2023-01-02 05:56] LABS: Alanine Aminotransferase 27 U/L (16-63); Albumin Level 2.4 g/dL (3.4-5.0); Alkaline Phosphatase 59 U/L (46-116); Anion Gap 11 mmol/L (8-16); Aspartate Amino Transferase 25 U/L (15-37); Bilirubin,Total 0.5 mg/dL (0.00-1.00); Blood Urea Nitrogen 23 mg/dL (7-18); Calcium 8.3 mg/dL (8.5-10.1); Carbon Dioxide 24 mmol/L (21-32); Chloride 106 mmol/L (98-108); Estimated CRCL calculation 43 ml/min; Estimated Glomerular Filt Rate 57; Glucose 153 mg/dL (70-99); Osmolality Calculated 298 mOsm/kg (285-295); Potassium 4.6 mmol/L (3.5-5.1); Sodium 141 mmol/L (136-145)
[2023-01-02 08:00] VITALS: BP 132/70; PULSE 104; RESP 16; TEMP 36.6; O2SAT 100
[2023-01-02] MEDS: PSYLLIUM POWDER PACKET 1 PACKET PO (09:17)
[2023-01-02] MEDS: ASPIRIN 81 MG ENTERIC TABLET PO (09:17)
[2023-01-02] MEDS: TAMSULOSIN HCL 0.4 MG CAPSULE PO (09:17)
[2023-01-02] MEDS: FINASTERIDE 5 MG TABLET PO (09:17)
--- NOTE | 2023-01-02 15:00 | PC.NURSE ---
Changed dressing to left hip. Three surgical incisions secured with glue noted. No redness or swelling. Cleaned with wound cleanser and covered with 2 island dressing.
[2023-01-02 16:00] VITALS: BP 131/55; PULSE 88; RESP 17; TEMP 37.4; O2SAT 98
--- NOTE | 2023-01-02 16:58 | PM.EVENT ---
Event Note Event Note Event Note: Reviewed hemoglobin today and he has had a slight decrease from 8.1 to 7.4 g/dl. Suspect related recent orthopedic surgery. No bleeding noted to ortiz. Only on ASA 81 mg daily for DVT prophylaxis. He denies SOB, CP, dizziness, or feelings of weakness. Will re-check CBC on Wednesday. I encouraged him to notify staff if he starts to experience the above symptoms and we can check his labs sooner.
[2023-01-02] MEDS: ZOLPIDEM TARTRATE (*CRX) 5 MG TABLET 10 MG PO (23:02)
[2023-01-02] MEDS: HYDROcodone/acetaminophen (*CRX) 5-325 MG TABLET 1 TAB PO (23:03)
[2023-01-02 23:16] VITALS: BP 128/56; PULSE 98; RESP 20; TEMP 37.3; O2SAT 97
[2023-01-03] MEDS: HYDROcodone/acetaminophen (*CRX) 5-325 MG TABLET 1 TAB PO ×4 (03:25→22:22)
[2023-01-03 08:00] VITALS: BP 130/55; PULSE 70; RESP 18; TEMP 36.8; O2SAT 99
[2023-01-03] MEDS: BISACODYL 5 MG TABLET EC PO (08:46)
[2023-01-03] MEDS: PSYLLIUM POWDER PACKET 1 PACKET PO (08:46)
[2023-01-03] MEDS: ASPIRIN 81 MG ENTERIC TABLET PO (08:46)
[2023-01-03] MEDS: FINASTERIDE 5 MG TABLET PO (08:46)
[2023-01-03] MEDS: TAMSULOSIN HCL 0.4 MG CAPSULE PO (08:46)
[2023-01-03] MEDS: BISACODYL 10 MG SUPPOSITORY RECTAL (13:14)
[2023-01-03 16:00] VITALS: BP 139/55; PULSE 85; RESP 17; TEMP 37; O2SAT 99
--- NOTE | 2023-01-03 18:38 | PC.NURSE ---
Changed dressing to left hip. Three surgical incisions secured with glue noted. No redness or swelling. Cleaned with wound cleanser and covered with 2 island dressing.
[2023-01-03] MEDS: ZOLPIDEM TARTRATE (*CRX) 5 MG TABLET 10 MG PO (22:22)
[2023-01-04] VITALS: BP 133/59; PULSE 77; RESP 16; TEMP 37; O2SAT 97
[2023-01-04 05:30] LABS: Basophils Absolute Auto 0.01 K/mm3 (0.00-0.10); Basophils Percent Auto 0.2 % (0.0-1.0); Eosinophils Absolute Auto 0.11 K/mm3 (0.02-0.50); Eosinophils Percent Auto 1.7 % (1.0-6.0); Hematocrit 23.9 % (37.0-46.0); Hemoglobin 7.9 g/dL (12.4-15.3); Immature Granulocyte Absolute 0.04 K/mm3 (0.00-0.00); Immature Granulocyte Percent A 0.6 % (0.0-0.0); Lymphocytes Absolute Auto 1.12 K/mm3 (1.10-4.50); Lymphocytes Percent Auto 17.7 % (18.0-42.0); Mean Corpuscular HGB Conc 33.1 g/dL (32.0-36.0); Mean Corpuscular Hemoglobin 29.9 pg (27.0-31.0); Mean Corpuscular Volume 90.5 fL (78.0-102.0); Monocytes Percent Auto 9.5 % (2.0-11.0); Neutrophils Absolute Auto 4.4 K/mm3 (1.7-7.2); Neutrophils Percent Auto 70.3 % (50.0-70.0); Platelet Count Result 208 K/mm3 (150-420); Red Blood Count 2.64 M/mm3 (4.70-6.10); Red Cell Distribution Width 12.5 % (11.6-14.4); White Blood Count 6.3 K/mm3 (4.8-10.8)
[2023-01-04] MEDS: HYDROcodone/acetaminophen (*CRX) 5-325 MG TABLET 1 TAB PO ×3 (06:29→22:51)
[2023-01-04 08:00] VITALS: BP 127/58; PULSE 74; RESP 16; TEMP 36.7; O2SAT 97
[2023-01-04] MEDS: TAMSULOSIN HCL 0.4 MG CAPSULE PO (09:18)
[2023-01-04] MEDS: ASPIRIN 81 MG ENTERIC TABLET PO (09:18)
[2023-01-04] MEDS: PSYLLIUM POWDER PACKET 1 PACKET PO (09:18)
[2023-01-04] MEDS: FINASTERIDE 5 MG TABLET PO (09:19)
[2023-01-04 16:00] VITALS: BP 115/59; PULSE 91; RESP 16; TEMP 36.9; O2SAT 97
--- NOTE | 2023-01-04 18:01 | PC.NURSE ---
Dressing changed on surgical wounds. Sites are clean and well approximated with no s/s infection or drainage. Patient tolerated well.
[2023-01-04 20:00] VITALS: PULSE 91; RESP 16; O2SAT 97
[2023-01-04] MEDS: ZOLPIDEM TARTRATE (*CRX) 5 MG TABLET 10 MG PO (22:51)
[2023-01-05] VITALS: BP 137/68; PULSE 82; RESP 17; TEMP 37.6; O2SAT 100
[2023-01-05 08:00] VITALS: BP 121/56; PULSE 83; RESP 16; TEMP 37; O2SAT 100
[2023-01-05] MEDS: PSYLLIUM POWDER PACKET 1 PACKET PO (08:23)
[2023-01-05] MEDS: ASPIRIN 81 MG ENTERIC TABLET PO (08:23)
[2023-01-05] MEDS: HYDROcodone/acetaminophen (*CRX) 5-325 MG TABLET 1 TAB PO ×3 (08:24→22:44)
[2023-01-05] MEDS: FINASTERIDE 5 MG TABLET PO (08:24)
[2023-01-05] MEDS: TAMSULOSIN HCL 0.4 MG CAPSULE PO (08:24)
--- NOTE | 2023-01-05 10:53 | PM.EVENT ---
Event Note Event Note Event Note: Nursing asked me to speak with Mr Howard about his pain concerns. He states that he just feels like his pain should be gone by now. I reassured him that his pain will slowly be improving each day but could be present for a few weeks after his surgery. The main thing is that the pain is not worsening and he is able to do his therapy with his pain medications. He admits that he probably has not been utilizing his pain medication as often as he should because he tries not to take medications. I encouraged him to try to stay on top of the pain and use the prn medications as he needs. He also admits to working independently with his therapy tasks and thinks he may be over doing it a bit. He is anxious to get back to his life and may be pushing himself too much.
[2023-01-05 16:00] VITALS: BP 126/71; PULSE 90; RESP 16; TEMP 37.2; O2SAT 98
--- NOTE | 2023-01-05 16:55 | PC.NURSE ---
Patient has cloudy urine and urine is dark yellow. Licensed Appraiser encouraged patient to drink more water and will monitor. Ice pack applied to L thigh due to swelling post hip repair. Effective.
--- NOTE | 2023-01-05 18:06 | PC.NURSE ---
Dressing changed to surgical site. Well approximated with no s/s complications. Patient tolerated well.
--- NOTE | 2023-01-05 19:41 | PC.NURSE ---
During assessment, proposal lead writer offered suppository, pt requests suppository be given in AM, will offer again with early AM med pass.
[2023-01-05 20:00] VITALS: PULSE 90; RESP 16; O2SAT 98
[2023-01-05] MEDS: ZOLPIDEM TARTRATE (*CRX) 5 MG TABLET 10 MG PO (22:44)
[2023-01-06] VITALS: BP 122/72; PULSE 72; RESP 16; TEMP 37.1; O2SAT 100
[2023-01-06] MEDS: PSYLLIUM POWDER PACKET 1 PACKET PO (05:49)
[2023-01-06] MEDS: HYDROcodone/acetaminophen (*CRX) 5-325 MG TABLET 1 TAB PO ×4 (05:49→22:55)
[2023-01-06 08:00] VITALS: BP 121/49; PULSE 93; RESP 14; TEMP 36.6; O2SAT 100
[2023-01-06] MEDS: TAMSULOSIN HCL 0.4 MG CAPSULE PO (09:54)
[2023-01-06] MEDS: BISACODYL 10 MG SUPPOSITORY RECTAL (09:54)
[2023-01-06] MEDS: ASPIRIN 81 MG ENTERIC TABLET PO (09:54)
[2023-01-06] MEDS: FINASTERIDE 5 MG TABLET PO (09:54)
--- NOTE | 2023-01-06 14:05 | PC.NURSE ---
Pt given suppository today. Pt did have a small BM. ro
[2023-01-06 16:00] VITALS: BP 155/73; PULSE 90; RESP 16; TEMP 36.9; O2SAT 99
--- NOTE | 2023-01-06 17:37 | PC.NURSE ---
Lazaro Anguiano, Hosptalist, notified that patient's nurse concerned patient may have UTI. Nurses to monitor, Hospitalist will check on patient tomorrow.
--- NOTE | 2023-01-06 18:19 | PC.NURSE ---
Patient's urine continues to be cloudy and darker than patient knows as normal for him. Charge nurse notified of change in urine color and clarity and PACKAGE REINSPECTOR notified. PACKAGE REINSPECTOR to assess tomorrow.
[2023-01-06] MEDS: SENNA/DOCUSATE SODIUM TABLET 1 TAB PO (21:58)
[2023-01-06] MEDS: ZOLPIDEM TARTRATE (*CRX) 5 MG TABLET 10 MG PO (22:54)
[2023-01-06 23:18] VITALS: BP 135/49; PULSE 81; RESP 16; TEMP 36.7; O2SAT 98
[2023-01-07] MEDS: PSYLLIUM POWDER PACKET 1 PACKET PO (06:19)
[2023-01-07] MEDS: HYDROcodone/acetaminophen (*CRX) 5-325 MG TABLET 1 TAB PO ×3 (06:49→23:54)
--- NOTE | 2023-01-07 07:23 | PM.IMPN ---
Progress Note: A&P Assessment and Plan (1) Closed intertrochanteric fracture of left femur: Qualifiers: Encounter type: subsequent encounter Fracture alignment: displaced Fracture healing: with routine healing Qualified Code(s): S72.142D - Displaced intertrochanteric fracture of left femur, subsequent encounter for closed fracture with routine healing Code(s): S72.142A - Displaced intertrochanteric fracture of left femur, initial encounter for closed fracture Status: Acute Assessment and Plan: S/p fall at home 12/29 left hip IM nail with orthopedics PT/OT consulted (2) Chronic indwelling Harrell catheter: Code(s): Z97.8 - Presence of other specified devices Status: Acute Assessment and Plan: 04/16 BPH Follows with urology started on Proscar and tamsulosin 3 months ago Plan is to see if medication alone will shrink his prostate before surgical intervention is discussed. 01/07: Urine drainage bag changed and urine culture sent. (3) Benign prostatic hyperplasia: Qualifiers: Lower urinary tract symptom presence: symptoms present Lower urinary tract symptom detail: urinary retention Qualified Code(s): N40.1 - Benign prostatic hyperplasia with lower urinary tract symptoms; R33.8 - Other retention of urine Code(s): N40.0 - Benign prostatic hyperplasia without lower urinary tract symptoms Status: Acute Assessment and Plan: see above (4) Chronic anemia: Code(s): D64.9 - Anemia, unspecified Status: Acute Assessment and Plan: Hemoglobin 7.4 to 9 the past month. Will recheck labs on 01/08. Plan Continue therapy Await urine culture or further signs/symptoms of UTI to start antibiotics Routing labs 01/08 Time Spent With Patient Time with patient: 25 - 35 minutes Subjective Date/time seen: 01/07/23 07:23 Interval history: Patient is admitted to swing bed status for rehabilitation after left hip fracture with IM nail repair. He is working with therapy really well. Patient is making good progress. His care coordination meeting is this afternoon. Pain is still a problem and patient has been frustrated about still being in pain but since conversation earlier in week he is understanding and his pain subsides. It is controlled well enough to participate with therapy with medication at this time. Patient noted cloudy urine and requested urine culture. He does not have any fever weakness altered mental status dysuria or any other signs significant infection. Color of urine does suggest pyuria but may be sterile pyuria. Will defer antibiotics unless patient develops UTI signs/symptoms or culture returns with significant growth. Patient did not want to change the catheter itself but did want to change the bag to get the cleanest sample possible. Review of Systems Review of Systems: All systems reviewed & are unremarkable except as noted in HPI and below Exam Narrative: General: well appearing, well developed, well nourished, appears stated age. HEENT: normocephalic, atraumatic. Mucous membranes moist. EOMI, PERRLA, bilateral sclera anicteric, no conjunctival injection. Neck supple without JVD, lymphadenopathy, or bruit. Respiratory: clear to auscultation bilaterally. No rales/rhonic/wheezes. Cardiovascular: Regular rate and rhythm, normal S1-S2 upon auscultation. No murmurs, rubs, or clicks. PMI is nondisplaced, capillary re-fill less than 3 second. Abdomen: Soft, flat, no pulsatile masses, non-distended and non-tender. No rebound, no guarding. No CVA tenderness, no hepatosplenomegaly. Bowel sounds present to all four quadrants. Extremities: No cyanosis, clubbing. Scant dependent edema with left greater than right. Pulses are palpable 2/2. Active ROM to all four extremities. Neuro: Alert and orientated x 4. PERRLA. Cranial nerves 2-12 intact without focal deficit. Skin: Warm, dry, and intact, without rash, erythema, or lesion.
[2023-01-07 08:00] VITALS: BP 140/70; PULSE 91; RESP 14; TEMP 36.9; O2SAT 100
[2023-01-07] MEDS: ASPIRIN 81 MG ENTERIC TABLET PO (09:46)
[2023-01-07] MEDS: FINASTERIDE 5 MG TABLET PO (09:46)
[2023-01-07] MEDS: TAMSULOSIN HCL 0.4 MG CAPSULE PO (09:46)
[2023-01-07 16:00] VITALS: BP 113/56; PULSE 88; RESP 18; TEMP 36.6; O2SAT 97
[2023-01-07] MEDS: SENNA/DOCUSATE SODIUM TABLET 1 TAB PO (21:58)
[2023-01-07] MEDS: ZOLPIDEM TARTRATE (*CRX) 5 MG TABLET 10 MG PO (23:53)
[2023-01-07 23:56] VITALS: BP 101/60; PULSE 80; RESP 15; TEMP 36.9; O2SAT 97
[2023-01-08] MEDS: PSYLLIUM POWDER PACKET 1 PACKET PO (05:11)
[2023-01-08 05:51] LABS: Hematocrit 25.1 % (37.0-46.0); Hemoglobin 8.1 g/dL (12.4-15.3); Mean Corpuscular HGB Conc 32.3 g/dL (32.0-36.0); Mean Corpuscular Hemoglobin 29.8 pg (27.0-31.0); Mean Corpuscular Volume 92.3 fL (78.0-102.0); Mean Platelet Volume 8.6 fl (8.7-11.0); Platelet Count Result 298 K/mm3 (150-420); Red Blood Count 2.72 M/mm3 (4.70-6.10); Red Cell Distribution Width 12.7 % (11.6-14.4); White Blood Count 5.4 K/mm3 (4.8-10.8)
[2023-01-08 06:01] LABS: Anion Gap 9 mmol/L (8-16); Blood Urea Nitrogen 31 mg/dL (7-18); Calcium 8.9 mg/dL (8.5-10.1); Carbon Dioxide 28 mmol/L (21-32); Chloride 103 mmol/L (98-108); Estimated CRCL calculation 43 ml/min; Estimated Glomerular Filt Rate 57; Glucose 126 mg/dL (70-99); Osmolality Calculated 298 mOsm/kg (285-295); Potassium 4.5 mmol/L (3.5-5.1); Sodium 140 mmol/L (136-145)
[2023-01-08] MEDS: HYDROcodone/acetaminophen (*CRX) 5-325 MG TABLET 1 TAB PO ×4 (07:31→23:09)
--- NOTE | 2023-01-08 07:55 | P.PNCROSS_ITS ---
Event Note Event Note Event Note: Discussed with Patient about his hgb and explained that it is trending up. Jenny ent states that he is feeling better and denies needing anything at this time. Patient is still having some pain nothing that the medication is not fixing.
[2023-01-08 08:00] VITALS: BP 100/60; PULSE 80; RESP 14; TEMP 36.8; O2SAT 98
[2023-01-08] MEDS: FINASTERIDE 5 MG TABLET PO (08:40)
[2023-01-08] MEDS: ASPIRIN 81 MG ENTERIC TABLET PO (08:40)
[2023-01-08] MEDS: TAMSULOSIN HCL 0.4 MG CAPSULE PO (08:40)
[2023-01-08 16:00] VITALS: BP 113/59; PULSE 84; RESP 16; TEMP 37.1; O2SAT 100
--- NOTE | 2023-01-08 18:20 | PC.NURSE ---
Dressing changed to surgical sites. Patient tolerated well. No s/s infection noted. Mild bruising to most distal of 3 incisions.
[2023-01-08] MEDS: SENNA/DOCUSATE SODIUM TABLET 1 TAB PO (21:30)
[2023-01-08] MEDS: ZOLPIDEM TARTRATE (*CRX) 5 MG TABLET 10 MG PO (23:08)
[2023-01-08 23:49] VITALS: BP 102/45; PULSE 97; RESP 18; TEMP 36.2; O2SAT 98
[2023-01-09] MEDS: HYDROcodone/acetaminophen (*CRX) 5-325 MG TABLET 1 TAB PO ×3 (05:56→22:17)
[2023-01-09] MEDS: PSYLLIUM POWDER PACKET 1 PACKET PO (05:57)
--- NOTE | 2023-01-09 05:57 | PC.NURSE ---
On 01/09/23, the MAID CLEANING COOKING, [Lizzy Mike ], provided care and completed [employer] documentation on this patient. I have reviewed the MAID CLEANING COOKING's documentation and agree with the findings.
[2023-01-09 08:00] VITALS: BP 107/53; PULSE 96; RESP 16; TEMP 36.8; O2SAT 100
[2023-01-09] MEDS: ASPIRIN 81 MG ENTERIC TABLET PO (09:02)
[2023-01-09] MEDS: FINASTERIDE 5 MG TABLET PO (09:02)
[2023-01-09] MEDS: TAMSULOSIN HCL 0.4 MG CAPSULE PO (09:02)
[2023-01-09 16:00] VITALS: BP 113/60; PULSE 91; RESP 16; TEMP 36.8; O2SAT 100
--- NOTE | 2023-01-09 18:10 | PC.NURSE ---
Crop Specialist changed dressings to surgical sites and noticed at the top of the tape line for the dressings, there are a series of tight fluid filled blisters around 2mm x 1mm each, and approximately 6 to 8 total blisters. Crop Specialist placed the tape line below the blisters, and cleansed the blisters with wound cleanser. Will notify SEAM CHECKER of finding.
[2023-01-09 20:00] VITALS: PULSE 91; RESP 16; O2SAT 100
[2023-01-09] MEDS: CEFDINIR 300 MG CAPSULE PO (20:48)
[2023-01-09] MEDS: ZOLPIDEM TARTRATE (*CRX) 5 MG TABLET 10 MG PO (22:17)
[2023-01-09] MEDS: SENNA/DOCUSATE SODIUM TABLET 1 TAB PO (22:17)
[2023-01-10] VITALS: BP 122/52; PULSE 80; RESP 17; TEMP 36.8; O2SAT 99
[2023-01-10] MEDS: PSYLLIUM POWDER PACKET 1 PACKET PO (06:03)
[2023-01-10 07:55] VITALS: BP 120/57; PULSE 73; RESP 16; TEMP 36.7; O2SAT 96
[2023-01-10] MEDS: CEFDINIR 300 MG CAPSULE PO (08:31)
[2023-01-10] MEDS: HYDROcodone/acetaminophen (*CRX) 5-325 MG TABLET 1 TAB PO ×4 (08:31→22:31)
[2023-01-10] MEDS: TAMSULOSIN HCL 0.4 MG CAPSULE PO (08:32)
[2023-01-10] MEDS: ASPIRIN 81 MG ENTERIC TABLET PO (08:32)
[2023-01-10] MEDS: FINASTERIDE 5 MG TABLET PO (08:33)
--- NOTE | 2023-01-10 08:46 | PC.NURSE ---
farm equipment maintenance supervisor made aware of urine final is back.
[2023-01-10] MEDS: levoFLOXacin 500 MG TABLET PO (10:16)
--- NOTE | 2023-01-10 10:56 | PM.EVENT ---
Event Note Event Note Event Note: Urine culture positive for Citrobacter braakii for with resistance to cefdinir that previous provider started. Antibiotics changed to renally adjusted Levaquin for 5 days. Patient not febrile or having pain. Chronic indwelling Harrell catheter due for change on 01/24/23. Patient refused change here when urine culture obtained but the urine bag was changed before obtaining sample. Patient denies any other needs and is working well with therapy/nursing staff, progressing well with likely discharge home within the next week.
[2023-01-10 16:00] VITALS: BP 109/58; PULSE 84; RESP 16; TEMP 36.8; O2SAT 99
--- NOTE | 2023-01-10 18:18 | PC.NURSE ---
Dressing to surgical site changed using 3 telfa pads and paper tape. Blisters remain just above the top of the tape line, but show no s/s of infection. Surgical incisions well approximated, with no s/s infection noted. Bruising continues on the back of L knee and just below the most distal incision. Patient denies pain at this time.
[2023-01-10 20:00] VITALS: PULSE 84; RESP 16; O2SAT 99
--- NOTE | 2023-01-10 21:00 | PC.NURSE ---
Patient requesting Sennakot be given later, around 2300, with his sleeping pills.
[2023-01-10] MEDS: SENNA/DOCUSATE SODIUM TABLET 1 TAB PO (22:31)
[2023-01-10] MEDS: ZOLPIDEM TARTRATE (*CRX) 5 MG TABLET 10 MG PO (22:31)
[2023-01-11] VITALS: BP 128/59; PULSE 66; RESP 16; TEMP 36.7; O2SAT 100
--- NOTE | 2023-01-11 06:13 | PC.NURSE ---
Patient slept well last night, after staying up until 0130, which is a typical bedtime for the patient. He has requested senokot to be given at 2300, instead of 2100.
[2023-01-11] MEDS: PSYLLIUM POWDER PACKET 1 PACKET PO (06:23)
[2023-01-11 08:00] VITALS: BP 132/60; PULSE 68; RESP 14; TEMP 36.8; O2SAT 98
[2023-01-11] MEDS: HYDROcodone/acetaminophen (*CRX) 5-325 MG TABLET 1 TAB PO ×4 (08:30→22:31)
[2023-01-11] MEDS: TAMSULOSIN HCL 0.4 MG CAPSULE PO (09:05)
[2023-01-11] MEDS: FINASTERIDE 5 MG TABLET PO (09:06)
[2023-01-11] MEDS: ASPIRIN 81 MG ENTERIC TABLET PO (09:06)
[2023-01-11] MEDS: levoFLOXacin 250 MG TABLET PO (09:06)
[2023-01-11 16:00] VITALS: BP 118/69; PULSE 89; RESP 18; TEMP 36.7; O2SAT 98
--- NOTE | 2023-01-11 17:17 | PC.NURSE ---
Pt up in chair eating dinner and c/o Lt hip and thigh pains from exercising and doing steps. [place] x1 tab given for pain.
[2023-01-11 19:54] VITALS: PULSE 89; RESP 18; O2SAT 98
[2023-01-11] MEDS: SENNA/DOCUSATE SODIUM TABLET 1 TAB PO (22:31)
[2023-01-11] MEDS: ZOLPIDEM TARTRATE (*CRX) 5 MG TABLET 10 MG PO (22:31)
[2023-01-11 23:57] VITALS: BP 125/61; PULSE 79; RESP 17; TEMP 36.7; O2SAT 100
[2023-01-12] MEDS: PSYLLIUM POWDER PACKET 1 PACKET PO (06:45)
[2023-01-12 08:00] VITALS: BP 128/56; PULSE 87; RESP 14; TEMP 36.7; O2SAT 99
[2023-01-12] MEDS: levoFLOXacin 250 MG TABLET PO (09:30)
[2023-01-12] MEDS: ASPIRIN 81 MG ENTERIC TABLET PO (09:31)
[2023-01-12] MEDS: FINASTERIDE 5 MG TABLET PO (09:31)
[2023-01-12] MEDS: TAMSULOSIN HCL 0.4 MG CAPSULE PO (09:31)
[2023-01-12] MEDS: HYDROcodone/acetaminophen (*CRX) 5-325 MG TABLET 1 TAB PO ×3 (12:48→22:57)
[2023-01-12 15:31] VITALS: BP 112/66; PULSE 91; RESP 20; TEMP 37; O2SAT 100
--- NOTE | 2023-01-12 17:05 | PC.NURSE ---
Pt c/o some pain in hip p exercising today and requested pain med c dinner. Pt given [place], call bruce at pt side, no other c/o at this time.
[2023-01-12] MEDS: SENNA/DOCUSATE SODIUM TABLET 1 TAB PO (21:54)
[2023-01-12] MEDS: ZOLPIDEM TARTRATE (*CRX) 5 MG TABLET 10 MG PO (22:56)
[2023-01-12 23:06] VITALS: BP 119/56; PULSE 80; RESP 15; TEMP 36.9; O2SAT 98
[2023-01-13] MEDS: PSYLLIUM POWDER PACKET 1 PACKET PO (06:31)
[2023-01-13 08:00] VITALS: BP 120/60; PULSE 78; RESP 14; TEMP 36.8; O2SAT 98
[2023-01-13] MEDS: HYDROcodone/acetaminophen (*CRX) 5-325 MG TABLET 1 TAB PO ×3 (08:06→22:44)
[2023-01-13] MEDS: ASPIRIN 81 MG ENTERIC TABLET PO (09:30)
[2023-01-13] MEDS: levoFLOXacin 250 MG TABLET PO (09:30)
[2023-01-13] MEDS: TAMSULOSIN HCL 0.4 MG CAPSULE PO (09:30)
[2023-01-13] MEDS: FINASTERIDE 5 MG TABLET PO (09:30)
--- NOTE | 2023-01-13 09:31 | P.PNCROSS_ITS ---
Event Note Event Note Event Note: Per therapy reports patient will require a wheeled walker at discharge for assi stance with balance, gait mobility, and transfers for safety secondary to recent functional changes after his hip surgery. He is progressing well with therapy and plans to discharge home Wednesday, 01/16.
[2023-01-13 15:31] VITALS: BP 108/60; PULSE 71; RESP 18; TEMP 37; O2SAT 99
[2023-01-13 20:00] VITALS: PULSE 71; RESP 18; O2SAT 99
[2023-01-13] MEDS: SENNA/DOCUSATE SODIUM TABLET 1 TAB PO (22:44)
[2023-01-13] MEDS: ZOLPIDEM TARTRATE (*CRX) 5 MG TABLET 10 MG PO (22:44)
[2023-01-14] VITALS: BP 109/55; PULSE 69; RESP 16; TEMP 36.9; O2SAT 99
[2023-01-14] MEDS: PSYLLIUM POWDER PACKET 1 PACKET PO (06:31)
[2023-01-14 08:00] VITALS: BP 116/78; PULSE 76; RESP 16; TEMP 36.8; O2SAT 99
--- NOTE | 2023-01-14 08:30 | PM.IMPN ---
Progress Note: A&P Assessment and Plan (1) Closed intertrochanteric fracture of left femur: Qualifiers: Encounter type: subsequent encounter Fracture alignment: displaced Fracture healing: with routine healing Qualified Code(s): S72.142D - Displaced intertrochanteric fracture of left femur, subsequent encounter for closed fracture with routine healing Code(s): S72.142A - Displaced intertrochanteric fracture of left femur, initial encounter for closed fracture Status: Acute Assessment and Plan: S/p fall at home 12/29 left hip IM nail with orthopedics PT/OT consulted (2) Chronic indwelling Ortiz catheter: Code(s): Z97.8 - Presence of other specified devices Status: Acute Assessment and Plan: 04/16 BPH Follows with urology started on Proscar and tamsulosin 3 months ago Plan is to see if medication alone will shrink his prostate before surgical intervention is discussed. 01/07: Urine drainage bag changed and urine culture sent. 01/10: urine culture positive with citrobacter braakii. Started on Levaquin for 5 days. 01/14: Today is last day of levaquin dosing. Needs ortiz exchange on 01/24/23. He already has an appointment arranged with his urologist for this. (3) Benign prostatic hyperplasia: Qualifiers: Lower urinary tract symptom detail: urinary retention Lower urinary tract symptom presence: symptoms present Qualified Code(s): N40.1 - Benign prostatic hyperplasia with lower urinary tract symptoms; R33.8 - Other retention of urine Code(s): N40.0 - Benign prostatic hyperplasia without lower urinary tract symptoms Status: Acute Assessment and Plan: see above (4) Chronic anemia: Code(s): D64.9 - Anemia, unspecified Status: Acute Assessment and Plan: Hemoglobin 7.4 to 9 the past month. Will recheck labs on 01/08. Hgb on 01/08 is stable at 8.1 g/dL Plan 01/15 routine labs ordered prior to his anticipated discharge on 01/16 DME ordered for wheeled walker 01/14 completing his antibiotic course of Levaquin today for UTI Subjective Date/time seen: 01/14/23 08:30 Interval history: This is a very pleasant 82-year-old male in excellent health with a past medical history of BPH requiring Ortiz placement. He presented to the [facility] on 12/28 to be evaluated for left hip pain after falling at home.? He states he was cleaning around his indoor pool when he slipped hitting the concrete and then rolling into the pool.? He was able to drag himself out of the pool and into the house where he called his son for help.? Imaging showed a comminuted intertrochanteric fracture of the proximal left femur.? On 12/29 he underwent surgery with Dr. Felix for a left hip trochanteric nail internal fixation.? His hospital stay was unremarkable.? He is being admitted to [facility] for further rehab. He seen this morning with his son at the bedside.? He is up in a chair and has just finished working with therapy.? He appears well and is in no distress.? He does say that he has some mild hip discomfort after working with therapy however his pain is controlled with his current p.r.n. medications.? Otherwise he has no complaints.? He states that he is eating and drinking well and his last bowel movement was Wednesday.? He did receive Metamucil this morning and that typically helps to regulate him. 01/07--cloudy urine in ortiz bag. Patient requested urine culture but would not allow ortiz exchange. Bag was exchanged prior to collection. 01/10-Urine culture positive for citrobacter braakii with resistance to cefdinir. Levaquin ordered for 5 days. Next ortiz catheter exchange due on 01/24/23. 01/14-Mr Howard is doing well today. He is sitting up in his chair and recently finished working with therapy. He currently has no complaints and is ready to discharge on Wednesday as planned. DME has been obtained for wheeled walker. Today is his last day of PO levaquin fo
[2023-01-14] MEDS: HYDROcodone/acetaminophen (*CRX) 5-325 MG TABLET 1 TAB PO ×3 (08:36→22:29)
[2023-01-14] MEDS: ASPIRIN 81 MG ENTERIC TABLET PO (08:37)
[2023-01-14] MEDS: levoFLOXacin 250 MG TABLET PO (08:37)
[2023-01-14] MEDS: TAMSULOSIN HCL 0.4 MG CAPSULE PO (08:37)
[2023-01-14] MEDS: FINASTERIDE 5 MG TABLET PO (08:37)
[2023-01-14 16:00] VITALS: BP 116/52; PULSE 74; RESP 16; TEMP 36.5; O2SAT 100
[2023-01-14 20:00] VITALS: PULSE 74; RESP 16; O2SAT 100
[2023-01-14] MEDS: ZOLPIDEM TARTRATE (*CRX) 5 MG TABLET 10 MG PO (22:29)
[2023-01-14] MEDS: SENNA/DOCUSATE SODIUM TABLET 1 TAB PO (22:29)
[2023-01-15] VITALS: BP 115/56; PULSE 67; RESP 16; TEMP 36.7; O2SAT 100
[2023-01-15 05:48] LABS: Basophils Absolute Auto 0.03 K/mm3 (0.00-0.10); Basophils Percent Auto 0.6 % (0.0-1.0); Eosinophils Absolute Auto 0.13 K/mm3 (0.02-0.50); Eosinophils Percent Auto 2.5 % (1.0-6.0); Hematocrit 25.1 % (37.0-46.0); Hemoglobin 8.2 g/dL (12.4-15.3); Immature Granulocyte Absolute 0.06 K/mm3 (0.00-0.00); Immature Granulocyte Percent A 1.1 % (0.0-0.0); Lymphocytes Absolute Auto 1.04 K/mm3 (1.10-4.50); Lymphocytes Percent Auto 19.9 % (18.0-42.0); Mean Corpuscular HGB Conc 32.7 g/dL (32.0-36.0); Mean Corpuscular Hemoglobin 29.9 pg (27.0-31.0); Mean Corpuscular Volume 91.6 fL (78.0-102.0); Mean Platelet Volume 8.5 fl (8.7-11.0); Monocytes Absolute Auto 0.62 K/mm3 (0.10-0.90); Monocytes Percent Auto 11.9 % (2.0-11.0); Neutrophils Absolute Auto 3.3 K/mm3 (1.7-7.2); Platelet Count Result 261 K/mm3 (150-420); Red Blood Count 2.74 M/mm3 (4.70-6.10); Red Cell Distribution Width 13.1 % (11.6-14.4); White Blood Count 5.2 K/mm3 (4.8-10.8)
--- NOTE | 2023-01-15 05:59 | PC.NURSE ---
Patient likes to take his bed time medications between 2200 and 2300. He had ambien and [place] at 2229. Patient was able to sleep, and had vitals WNL. He had 1200 out of his ortiz. Patient will be D/C to home Wednesday.
[2023-01-15 06:03] LABS: Alanine Aminotransferase < 6 U/L (16-63); Albumin Level 2.6 g/dL (3.4-5.0); Alkaline Phosphatase 98 U/L (46-116); Anion Gap 7 mmol/L (8-16); Aspartate Amino Transferase 10 U/L (15-37); Bilirubin,Total 0.5 mg/dL (0.00-1.00); Blood Urea Nitrogen 27 mg/dL (7-18); Calcium 8.9 mg/dL (8.5-10.1); Carbon Dioxide 29 mmol/L (21-32); Chloride 104 mmol/L (98-108); Estimated CRCL calculation 43 ml/min; Estimated Glomerular Filt Rate 57; Glucose 99 mg/dL (70-99); Magnesium 2.1 mg/dL (1.8-2.4); Osmolality Calculated 295 mOsm/kg (285-295); Potassium 4.2 mmol/L (3.5-5.1); Sodium 140 mmol/L (136-145); Total Protein 5.7 g/dL (6.4-8.2)
[2023-01-15] MEDS: PSYLLIUM POWDER PACKET 1 PACKET PO (06:27)
[2023-01-15 08:00] VITALS: BP 116/72; PULSE 76; RESP 16; TEMP 36.6; O2SAT 98
[2023-01-15] MEDS: FINASTERIDE 5 MG TABLET PO (09:13)
[2023-01-15] MEDS: HYDROcodone/acetaminophen (*CRX) 5-325 MG TABLET 1 TAB PO ×3 (09:13→22:47)
[2023-01-15] MEDS: ASPIRIN 81 MG ENTERIC TABLET PO (09:13)
[2023-01-15] MEDS: TAMSULOSIN HCL 0.4 MG CAPSULE PO (09:13)
--- NOTE | 2023-01-15 09:18 | PM.EVENT ---
Event Note Event Note Event Note: No acute events overnight. Labs and vital signs reviewed. Anticipate d/c home tomorrow.
[2023-01-15 16:00] VITALS: BP 108/60; PULSE 85; RESP 18; TEMP 36.7; O2SAT 98
[2023-01-15 20:00] VITALS: PULSE 83; RESP 18; O2SAT 98
--- NOTE | 2023-01-15 21:18 | PC.NURSE ---
Report called to Daisy [facility] @ [facility]. PT is going to bed 201. VSS.
[2023-01-15] MEDS: SENNA/DOCUSATE SODIUM TABLET 1 TAB PO (21:39)
--- NOTE | 2023-01-15 22:05 | PC.NURSE ---
Patient transferred to [facility] bed 201 per [facility]. VSS, all belongings taken with patient.
[2023-01-15] MEDS: ZOLPIDEM TARTRATE (*CRX) 5 MG TABLET 10 MG PO (22:46)
[2023-01-15 23:15] VITALS: BP 103/47; PULSE 72; RESP 16; TEMP 37.1; O2SAT 98
[2023-01-16] MEDS: PSYLLIUM POWDER PACKET 1 PACKET PO (06:25)
[2023-01-16] MEDS: BISACODYL 10 MG SUPPOSITORY RECTAL (06:56)
[2023-01-16 08:00] VITALS: BP 97/55; PULSE 88; RESP 14; TEMP 36.4; O2SAT 100
--- NOTE | 2023-01-16 08:16 | PM.DS ---
DS: Admitting Diagnosis Discharge Date 01/16/2023 Admitting Diagnosis rehab, Fracture hip, UTI, DS: Discharge Diagnosis Discharge Diagnosis (1) Closed intertrochanteric fracture of left femur: Qualifiers: Encounter type: subsequent encounter Fracture alignment: displaced Fracture healing: with routine healing Qualified Code(s): S72.142D - Displaced intertrochanteric fracture of left femur, subsequent encounter for closed fracture with routine healing Code(s): S72.142A - Displaced intertrochanteric fracture of left femur, initial encounter for closed fracture Status: Acute Assessment and Plan: S/p fall at home 12/29 left hip IM nail with orthopedics PT/OT consulted (2) Chronic indwelling Ortiz catheter: Code(s): Z97.8 - Presence of other specified devices Status: Acute Assessment and Plan: 04/16 BPH Follows with urology started on Proscar and tamsulosin 3 months ago Plan is to see if medication alone will shrink his prostate before surgical intervention is discussed. 01/07: Urine drainage bag changed and urine culture sent. 01/10: urine culture positive with citrobacter braakii. Started on Levaquin for 5 days. 01/14: Today is last day of levaquin dosing. Needs ortiz exchange on 01/24/23. He already has an appointment arranged with his urologist for this. (3) Benign prostatic hyperplasia: Qualifiers: Lower urinary tract symptom detail: urinary retention Lower urinary tract symptom presence: symptoms present Qualified Code(s): N40.1 - Benign prostatic hyperplasia with lower urinary tract symptoms; R33.8 - Other retention of urine Code(s): N40.0 - Benign prostatic hyperplasia without lower urinary tract symptoms Status: Acute Assessment and Plan: see above (4) Chronic anemia: Code(s): D64.9 - Anemia, unspecified Status: Acute Assessment and Plan: Hemoglobin 7.4 to 9 the past month. Will recheck labs on 01/08. Hgb on 01/08 is stable at 8.1 g/dL Plan 01/15 routine labs ordered prior to his anticipated discharge on 01/16 DME ordered for wheeled walker 01/14 completing his antibiotic course of Levaquin today for UTI DS: Summary Hospital Course Reason for hospitalization: Rehab , Fracture hip repaired Hospital Course: This is a 82 year old male who has made progress in his recovery during his stay in the swing bed. Mr. marcial was admitted previously to outside hospital with a fracture hip that was repaired and subsequently was found to have a UTI and sepsis. A this time with help of physical therapy he has regained hi strength and is now ready for discharge. Despite being ready for discharge , it that patient currently has a UTI and will discharge on oral antibiotic to address the infection. Patient Ortiz catheter is in place and draining yellow urine with no sediment noted at this time. Patient overall condition has improved and he will follow up with Ortho and his PCP Time Spent with Patient Time attestation: Total time spent providing and/or coordinating discharge services: Exam Narrative: General: well appearing, well developed, well nourished, appears stated age. HEENT: normocephalic, atraumatic. Mucous membranes moist. EOMI, PERRLA, bilateral sclera anicteric, no conjunctival injection. Neck supple without JVD, lymphadenopathy, or bruit. Respiratory: clear to auscultation bilaterally. No rales/rhonic/wheezes. Cardiovascular: Regular rate and rhythm, normal S1-S2 upon auscultation. No murmurs, rubs, or clicks. PMI is nondisplaced, capillary re-fill less than 3 second. Abdomen: Soft, flat, no pulsatile masses, non-distended and non-tender. No rebound, no guarding. No CVA tenderness, no hepatosplenomegaly. Bowel sounds present to all four quadrants. No high pitch or tinkling sounds, resonant to percussion. Extremities: No cyanosis, clubbing. Scant dependent edema with left greater than right. Pulses are palpable 2/2.
[2023-01-16] MEDS: TAMSULOSIN HCL 0.4 MG CAPSULE PO (09:23)
[2023-01-16] MEDS: ASPIRIN 81 MG ENTERIC TABLET PO (09:23)
[2023-01-16] MEDS: FINASTERIDE 5 MG TABLET PO (09:24)
[2023-01-16] MEDS: HYDROcodone/acetaminophen (*CRX) 5-325 MG TABLET 1 TAB PO (10:13)
--- NOTE | 2023-01-16 11:03 | PC.NURSE ---
Pt discharged to home with family. Medications reviewed, hip precautions reviewed and fall safety precautions. Pt has follow up appointment with PCP on Wednesday. Harrell care reviewed with pt. Pt and family verbalized understanding to all instructions.
--- NOTE | 2023-01-19 08:34 | PC.NURSE ---
Dc call back complete, all staff were wonderful, no questions or concerns regarding dc instructions, to have therapy at 5pm today, doing well
== END 2023-01-16 10:40 | disposition home or self-care (01) | DRG 560 ==
PROVIDERS: Nurse Practitioner; Nurse Practitioner Acute Care; Admitting Provider Internal Medicine; PCP Internal Medicine; Visit Provider Internal Medicine
DX: S72.142D Displaced intertrochanteric fracture of left femur, subsequent encounter for closed fracture with routine healing (principal); N39.0 Urinary tract infection, site not specified; D64.9 Anemia, unspecified; N40.1 Benign prostatic hyperplasia with lower urinary tract symptoms; R33.8 Other retention of urine; W19.XXXD Unspecified fall, subsequent encounter; Z79.82 Long term (current) use of aspirin
CPT/HCPCS: 36415; 80048; 80053; 83735; 85025; 85027; 87077; 87086; 87088; 87186; 97110; 97112; 97161; 97165; 97530; 97535; A9270

== ENCOUNTER 2023-01-19 16:34 | Outpatient (RCR) | payer MEDICARE, SELFPAY ==
--- NOTE | 2023-01-19 17:53 | PTOPEVAL1 ---
Assessment and note entered by Jodi Montilla DPT Evaluation Information Assessment Status Evaluation Diagnosis L hip pain, B LE weakness Onset 12/28/22 Subjective Information Patient reports he fell at him home on 12/28/22 that resulted in L hip fracture. He under went surgery on 12/29/22. He then participated in swing bed rehab at this hospital for 2 weeks. He is now walking with a FWW. He lives alone but has sons who live close and are available to assist when needed. Prior to fall he was very independent and did not use an AD. He now has difficulty with ambulation, getting into in bed and navigating steps. He was driving prior to surgery. RTMD on Reported Pain Level Pain Score 1: Self Report Assessment PT Clinical Summary Patient is a 82 year old male who presents to PT with L hip pain s/p L hip fracture. He demonstrates decreased LE strength, decreased balance and impaired gait mechanics limiting his ability to get into bed, ambulate prolonged periods and navigate steps. He would benefit from skilled PT to address impairments and return to PLOF. Plan of Care Interventions Electrical Stimulation,Gait Training,Hot Pack/Cold Pack,Manual Therapy,Neuro Re-education,Patient/ Caregiver Educati,Therapeutic Activities, Therapeutic Exercise PT Services Indicated Yes Treatment Frequency and 3x weekly for 12 visits Duration These treatments will address the objective and functional deficits as defined above. The patient will be advanced safely and appropriately in order for the patient to progress towards his/her prior level of function. Additional exercises will be introduced and as well as a comprehensive home exercise program upon discharge, if needed, ?to ensure carryover of functional gains achieved in the clinic. This treatment plan has been reviewed and agreement upon by the patient.
--- NOTE | 2023-01-21 07:17 | OPREHPOC ---
Outpatient Therapy Plan of Care This is a Multidisciplinary Plan of Care that may contain components documented by all disciplines (PT, OT, and ST.) PT Problem 1 PT Problem #1 Knowledge Deficit PT Goal 1 Goal Patient to demonstrate independence with HEP Target Visit 6 PT Problem 2 PT Problem #2 Pain PT Goal 1 Goal 1. Patient to report highest pain at 2/10 2. Patient to report ability to ambulate >15 min with no increase in pain Target Visit 12 PT Problem 3 PT Problem #3 Impaired Strength PT Goal 1 Goal 1. Patient to demonstrate 5/5 L LE strength 2. Patient to lift L LE into bed independently Target Visit 12 PT Problem 4 PT Problem #4 Impaired Functional Mobil PT Goal 1 Goal 1. Patient to ambulate 800' with no AD during 6 min walk test 2. Patient to report ability to complete house hold tasks at PLOF Target Visit 12
--- NOTE | 2023-02-08 12:41 | PTOPEVAL1 ---
Assessment and note entered by Timoteo [facility] Evaluation Information Assessment Status Evaluation Diagnosis L hip pain, B LE weakness Onset 12/28/22 Subjective Information Pt. reports that he is pleased with his progress. He reports that he is now walking with a cane. He continues to notice left hip pain. He reports that he still uses his walker in the home and for long distance and is fearful of falling on carpet. He states that his goal remains to return to driving and walk w/o an AD as he did prior to injury. Reported Pain Level Pain Score 1: Self Report Assessment PT Clinical Summary Pt. has attended a total of 10 treatment sessions. He demonstrates improvement in gait, improved l. e. strength and improvements in balance. Despite this progress pt. continues to present with moderate fall risk and continues use of the walker despite his goal of discharging his walker and his cane. Continued skilled PT is indicated to further progress pt. in regards to gait without an AD and returning to all normal IADL's. Plan of Care Interventions Gait Training,Neuro Re-education,Patient/Caregiver Educati,Therapeutic Activities,Therapeutic Exercise PT Services Indicated Yes Treatment Frequency and 3x/week x 9 visits Duration These treatments will address the objective and functional deficits as defined above. The patient will be advanced safely and appropriately in order for the patient to progress towards his/her prior level of function. Additional exercises will be introduced and as well as a comprehensive home exercise program upon discharge, if needed, ?to ensure carryover of functional gains achieved in the clinic. This treatment plan has been reviewed and agreement upon by the patient.
--- NOTE | 2023-03-03 16:32 | OPREHPOC ---
Outpatient Therapy Plan of Care This is a Multidisciplinary Plan of Care that may contain components documented by all disciplines (PT, OT, and ST.) PT Problem 1 PT Problem #1 Knowledge Deficit PT Goal 1 Goal Patient to demonstrate independence with HEP Target Visit 6 Progress Met PT Problem 2 PT Problem #2 Pain PT Goal 1 Goal 1. Patient to report highest pain at 2/10 2. Patient to report ability to ambulate >15 min with no increase in pain Target Visit 24 Progress Met PT Problem 3 PT Problem #3 Impaired Strength PT Goal 1 Goal 1. Patient to demonstrate 5/5 L LE strength 2. Patient to lift L LE into bed independently Target Visit 24 Progress Met PT Problem 4 PT Problem #4 Impaired Functional Mobil PT Goal 1 Goal 1. Patient to ambulate 800' with no AD during 6 min walk test. partially met 2. Patient to report ability to complete house hold tasks at PLOF. met Target Visit 24 Progress Partially Met Comment . PT Problem 5 PT Problem #5 Impaired Balance PT Goal 1 Goal Pt. will improve his tinetti score to 24 or greater. 22 Pt. will complete the 5 time sit to bingo attendant less than 15 seconds. met Target Visit 24 Progress Partially Met
--- NOTE | 2023-03-03 16:32 | PTOPDC ---
Assessment and note entered by JT File, PT Evaluation Information Assessment Status Discharge Diagnosis L hip pain, B LE weakness Onset 12/28/22 Subjective Information patient reports he has been discharged by the ortho. he reports he is leaving for 6 months to go to [place]. he reports he is doing very well, and is very happy with his progress. Reported Pain Level Pain Score 0: Self Report Assessment PT Clinical Summary mr. abrams presents to skilled PT for his 19th visit today. he has met nearly all goals for skilled PT as of this date. his therapy has focused on improvement of LE strength, gait mechanics, functional activity performance, and balance/proprioception. he has returned to all prior level activities, and ambulates without antalgia when using the cane. he is being DC'd from skilled PT as of this date, and will continue with HEP independent at home. Plan of Care PT Services Indicated Yes
== END 2023-03-03 16:38 | disposition home or self-care (01) ==
LOC: CHSPT 16:34
PROVIDERS: PCP Internal Medicine; Visit Provider Internal Medicine
DX: Z47.89 Encounter for other orthopedic aftercare (principal)
CPT/HCPCS: 97110; 97112; 97116; 97161; 97530; 97750

== ENCOUNTER 2023-10-01 09:00 | Outpatient (RCR) | payer MEDICARE, SELFPAY ==
--- NOTE | 2023-09-30 10:04 | OPREHPOC ---
Outpatient Therapy Plan of Care This is a Multidisciplinary Plan of Care that may contain components documented by all disciplines (PT, OT, and ST.) PT Problem 1 PT Problem #1 Knowledge Deficit PT Goal 1 Goal 1. independent and compliant with HEP Target Visit 4 PT Problem 2 PT Problem #2 Impaired Strength PT Goal 1 Goal 1. 5/5 R hip strength 2. 5/5 L hip strength 3. 5/5 R ankle DF strength Target Visit 9 PT Problem 3 PT Problem #3 Impaired Functional Mobil PT Goal 1 Goal 1. patient to ambulate with normal gait mechanics and no limping. 2.TUG to be completed safely in 10 seconds or less 3. 5x sit to stand to be completed safely in 10 second or less 4. patient to ambulate 1100ft or more in 6 minute walk test without limping. Target Visit 9
--- NOTE | 2023-09-30 10:05 | PTOPEVAL1 ---
Assessment and note entered by JT File, PT Evaluation Information Assessment Status Evaluation ICD-10 Condition Codes (PT) R26.9,Weakness R53.1 Onset 09/27/23 Subjective Information patient reports he has had no falls. he reports he feels he is limping. he reports he is here in therapy for tune up. he did have a L hip fracture repair last December. he did have a stent of swing bed and outpatient therapy after that repair. he reports he has a limp directly after getting up to walk, but this does get less of a limp as he walks further. Reported Pain Level Pain Score 0: Self Report Assessment PT Clinical Summary mr. abrams is an 83 yo man who presents to skilled PT services for evaluation and treatment of weakness and limping. he presents today with limping on the L LE, and weakness of the L hip abd . likely residual weakness from his L hip replacement last December. he would benefit from continued skilled PT address his LE weakness and ambulation abnormalities to improve his quality of life and functional activity performance. Plan of Care Interventions Gait Training,Manual Therapy,Neuro Re-education, Patient/Caregiver Educati,Therapeutic Activities, Therapeutic Exercise PT Services Indicated Yes Treatment Frequency and 3x weekly for 9 visits Duration These treatments will address the objective and functional deficits as defined above. The patient will be advanced safely and appropriately in order for the patient to progress towards his/her prior level of function. Additional exercises will be introduced and as well as a comprehensive home exercise program upon discharge, if needed, ?to ensure carryover of functional gains achieved in the clinic. This treatment plan has been reviewed and agreement upon by the patient.
--- NOTE | 2023-10-20 08:30 | PTOPPROG ---
Assessment and note entered by Timoteo [facility] Evaluation Information Assessment Status Evaluation ICD-10 Condition Codes (PT) R26.9,Weakness R53.1 Onset 09/27/23 Subjective Information Pt. notices that he is improving. He states that he still notices himself limping when walking, but it is getting less noticeable. He states that he has had no falls, but still notices an unsteadiness. He reports that his overall goal with therapy is to be able to get rid of his limp and would like to continue treatment to normalize his walking. Assessment PT Clinical Summary Pt. has attended a total of 9 treatment sessions. In this time pt. demonstrates improvements in l.e . strength and stability. Previous to his injury pt. was highly active for his age. He still presents with abductor weakness limiting his ability to return to normal recreational activities. At this time recommend continued skilled PT working on improving remaining strength deficits to normalize gait and help pt. return to all normal recreational activities without limitation. Plan of Care Interventions Electrical Stimulation,Gait Training,Hot Pack/Cold Pack,Manual Therapy,Neuro Re-education,Patient/ Caregiver Educati,Therapeutic Activities, Therapeutic Exercise PT Services Indicated Yes Treatment Frequency and 2x/week x 8 visits Duration These treatments will address the objective and functional deficits as defined above. The patient will be advanced safely and appropriately in order for the patient to progress towards his/her prior level of function. Additional exercises will be introduced and as well as a comprehensive home exercise program upon discharge, if needed, ?to ensure carryover of functional gains achieved in the clinic. This treatment plan has been reviewed and agreement upon by the patient.
--- NOTE | 2023-11-18 10:01 | OPREHPOC ---
Outpatient Therapy Plan of Care This is a Multidisciplinary Plan of Care that may contain components documented by all disciplines (PT, OT, and ST.) PT Problem 1 PT Problem #1 Knowledge Deficit PT Goal 1 Goal / Goal Update 1. independent and compliant with HEP Target Visit 4 Progress Met PT Problem 2 PT Problem #2 Impaired Strength PT Goal 1 Goal / Goal Update 1. 5/5 R hip strength. met 2. 5/5 L hip strength. not met 3. 5/5 R ankle DF strength. not met Target Visit 9 Progress Partially Met PT Problem 3 PT Problem #3 Impaired Functional Mobil PT Goal 1 Goal / Goal Update 1. patient to ambulate with normal gait mechanics and no limping. not met 2. TUG to be completed safely in 10 seconds or less. met 3. 5x sit to stand to be completed safely in 10 second or less. met 4. patient to ambulate 1100ft or more in 6 minute walk test without limping. partially met Target Visit 9 Progress Partially Met
--- NOTE | 2023-11-18 10:02 | PTOPDC ---
Assessment and note entered by JT File, PT Evaluation Information Assessment Status Discharge ICD-10 Condition Codes (PT) R26.9,Weakness R53.1 Onset 09/27/23 Subjective Information patient reports he has no pain. he reports he did stumble in a whole in his yard yesterday, but has no pain or injury from this. he reports he feels Good. he reports he still has a limp, but will continue to work on his hip strength and exercise progression at home. he reports he is walking 30- 45 minutes at a time at home, and knows he is not to begin jogging until a year post-op. Reported Pain Level Pain Score 0: Self Report Assessment PT Clinical Summary mr. abrams presents to skilled PT services for his 17th skilled PT visit. he has made progress in strength of the LE's and gait mechanics/functional mobility. however, he continues to display R foot slap and limping on the L LE with prolonged ambulation. he is compliant with his exercises and HEP frequency at home. he will DC skilled PT today, and continue with HEP independent. he was educated to follow up with PT or MD as needed for any progression or setbacks. Plan of Care PT Services Indicated Yes
== END 2023-11-18 13:28 | disposition home or self-care (01) ==
LOC: CHSPT 09:00
PROVIDERS: PCP Internal Medicine; Visit Provider Internal Medicine
DX: R26.9 Unspecified abnormalities of gait and mobility (principal)
CPT/HCPCS: 97110; 97112; 97150; 97161; 97530; 97750